=== PATIENT | male | born 1940 | race Caucasian/White ===

== ENCOUNTER → 2017-06-05 | Outpatient (CLI) | payer OTHER, MEDICARE ==
[~2017-06-05] MED LIST: AMLO5TAB2 PO; ATOR1TAB19 PO; CLOP75TA2 PO; HYDR25TAB PO; KEPP1TAB PO; METO1TAB33 PO; MULT1TAB8 PO; TEGR100T3 PO; TEGR1TAB PO; TRAV04OPD OD
[2017-06-05 18:38] LABS: ALBUMIN 3.7 GM/DL (3.2-5.2); ALBUMIN/GLOBULIN RATIO 1.23 (1.00-1.93); ALKALINE PHOSPHATASE 112 U/L (45-117); ALT/SGPT 24 U/L (12-78); ANION GAP 6 MEQ/L (8-16); AST/SGOT 22 U/L (15-37); BILIRUBIN,TOTAL 0.5 MG/DL (0.2-1.0); BLOOD UREA NITROGEN 13 MG/DL (7-18); CALCIUM LEVEL 8.7 MG/DL (8.8-10.2); CARBON DIOXIDE LEVEL 32 MEQ/L (21-32); CHLORIDE LEVEL 102 MEQ/L (98-107); CHOLESTEROL LEVEL 175 MG/DL (<200); GLOMERULAR FILTRATION RATE > 60.0 (>42); GLUCOSE, FASTING 96 MG/DL (83-110); SODIUM LEVEL 140 MEQ/L (136-145); TOTAL PROTEIN 6.7 GM/DL (6.4-8.2); TRIGLYCERIDES LEVEL 170 MG/DL (<150)
[2017-06-05 18:42] LABS: BASO % 0.8 % (0.0-1.0); EOS # 0.2 K/mm3 (0.0-0.50); EOS % 3.5 % (0.0-3.0); LARGE UNSTAINED CELL # 0.2 K/mm3 (0.0-0.4); LARGE UNSTAINED CELL % 2.9 % (0.0-4.0); LYMPH # 1.4 K/mm3 (1.5-4.5); LYMPH % 26.3 % (24.0-44.0); MEAN CORPUSCULAR HEMOGLOBIN 32.8 pg (27.0-33.0); MEAN CORPUSCULAR HGB CONC 34.6 g/dl (32.0-36.5); MEAN CORPUSCULAR VOLUME 94.8 fl (80.0-96.0); MONO # 0.5 K/mm3 (0.0-0.8); MONO % 8.8 % (0.0-5.0); NEUTROPHILS # 3.1 K/mm3 (1.8-7.7); NEUTROPHILS % 57.7 % (36.0-66.0); PLATELET COUNT, AUTOMATED 153 k/mm3 (150-450); RED CELL DISTRIBUTION WIDTH 12.4 % (11.5-14.5); WHITE BLOOD COUNT 5.4 K/mm3 (4.0-10.0)
== END ==
LOC: M WUC 09:21
PROVIDERS: ATTEND Family Medicine
DX: I10 Essential (primary) hypertension (principal)

== ENCOUNTER → 2017-06-05 | Outpatient (CLI) | payer OTHER, MEDICARE | LOC: M WUC 09:26 | PROVIDERS: ATTEND Psychiatry & Neurology Neurology | DX: G50.0 Trigeminal neuralgia (principal) ==

== ENCOUNTER → 2018-06-11 | Outpatient (CLI) | payer OTHER, MEDICARE ==
[2018-06-11 14:17] LABS: BASO # 0.1 10^3/uL (0.0-0.2); BASO % 0.9 % (0.0-1.0); EOS # 0.3 10^3/uL (0.0-0.50); EOS % 5.1 % (0.0-3.0); HEMATOCRIT 44.3 % (42.0-52.0); HEMOGLOBIN 14.2 g/dl (13.5-17.5); IMMATURE GRANULOCYTE % 0.4 % (0-3.0); LYMPH # 1.7 10^3/uL (1.5-4.5); MEAN CORPUSCULAR HEMOGLOBIN 31.6 pg (27.0-33.0); MEAN CORPUSCULAR HGB CONC 32.1 g/dl (32.0-36.5); MEAN CORPUSCULAR VOLUME 98.4 fl (80.0-96.0); MONO % 15.1 % (0.0-5.0); NEUTROPHILS # 3.6 10^3/uL (1.8-7.7); NEUTROPHILS % 53.5 % (36.0-66.0); PLATELET COUNT, AUTOMATED 171 10^3/uL (150-450); RED CELL DISTRIBUTION WIDTH 12.8 % (11.5-14.5); WHITE BLOOD COUNT 6.7 10^3/uL (4.0-10.0)
[2018-06-11 14:30] LABS: ALBUMIN 3.6 GM/DL (3.2-5.2); ALBUMIN/GLOBULIN RATIO 1.06 (1.00-1.93); ALKALINE PHOSPHATASE 116 U/L (45-117); ALT/SGPT 24 U/L (12-78); ANION GAP 7 MEQ/L (8-16); AST/SGOT 27 U/L (7-37); BILIRUBIN,DIRECT 0.1 MG/DL (0.0-0.2); BILIRUBIN,TOTAL 0.4 MG/DL (0.2-1.0); BLOOD UREA NITROGEN 13 MG/DL (7-18); CALCIUM LEVEL 8.5 MG/DL (8.8-10.2); CARBON DIOXIDE LEVEL 33 MEQ/L (21-32); CHLORIDE LEVEL 104 MEQ/L (98-107); CREATININE FOR GFR 1.01 MG/DL (0.70-1.30); GLOMERULAR FILTRATION RATE > 60.0 (>42); GLUCOSE, FASTING 96 MG/DL (70-100); POTASSIUM SERUM 4.3 MEQ/L (3.5-5.1); SODIUM LEVEL 144 MEQ/L (136-145)
== END ==
LOC: M WUC 09:31
DX: I10 Essential (primary) hypertension (principal)
CPT/HCPCS: 82248

== ENCOUNTER → 2018-12-08 | Outpatient (CLI) | payer MEDICARE, OTHER ==
[~2018-12-08] MED LIST changes: -AMLO5TAB2 PO; +AMLO5TAB6 PO
[2018-12-08 09:50] LABS: BASO # 0.1 10^3/uL (0.0-0.2); EOS # 0.2 10^3/uL (0.0-0.50); EOS % 3.8 % (0.0-3.0); HEMATOCRIT 44.4 % (42.0-52.0); HEMOGLOBIN 14.7 g/dl (13.5-17.5); LYMPH # 1.6 10^3/uL (1.5-4.5); LYMPH % 26.9 % (24.0-44.0); MEAN CORPUSCULAR HEMOGLOBIN 31.9 pg (27.0-33.0); MEAN CORPUSCULAR HGB CONC 33.1 g/dl (32.0-36.5); MEAN CORPUSCULAR VOLUME 96.3 fl (80.0-96.0); MONO # 0.7 10^3/uL (0.0-0.8); NEUTROPHILS # 3.4 10^3/uL (1.8-7.7); NEUTROPHILS % 56.8 % (36.0-66.0); PLATELET COUNT, AUTOMATED 160 10^3/uL (150-450); RED BLOOD COUNT 4.61 10^6/uL (4.30-6.10)
[2018-12-08 10:17] LABS: CARBAMAZEPINE (TEGRETOL) LEVEL 8.2 UG/ML (4.0-10.0)
== END ==
LOC: M WUC 08:27
PROVIDERS: ATTEND Physician Assistant Medical
DX: Z51.81 Encounter for therapeutic drug level monitoring (principal); Z79.899 Other long term (current) drug therapy; G50.0 Trigeminal neuralgia

== ENCOUNTER → 2019-01-13 | Outpatient (CLI) | payer MEDICARE, OTHER ==
[~2019-01-13] MED LIST changes: +HYDR-2541 PO; -HYDR25TAB PO
[2019-01-13 13:55] LABS: BLOOD UREA NITROGEN 15 MG/DL (7-18); CALCIUM LEVEL 8.9 MG/DL (8.8-10.2); CARBON DIOXIDE LEVEL 32 MEQ/L (21-32); CHLORIDE LEVEL 107 MEQ/L (98-107); CHOLESTEROL LEVEL 199 MG/DL (<200); CHOLESTEROL RISK RATIO 4.326 (<5); GLOMERULAR FILTRATION RATE > 60.0 (>42); GLUCOSE, FASTING 94 MG/DL (70-100); HDL CHOLESTEROL 46 MG/DL (>40); LDL CHOLESTEROL 124.8 MG/DL (<100); NON-HDL-C 153 MG/DL; POTASSIUM SERUM 4.7 MEQ/L (3.5-5.1); SODIUM LEVEL 145 MEQ/L (136-145); TRIGLYCERIDES LEVEL 141 MG/DL (<150)
== END ==
LOC: M WUC 08:36
PROVIDERS: ATTEND Family Medicine
DX: E78.2 Mixed hyperlipidemia (principal)

== ENCOUNTER → 2019-08-16 | Outpatient (CLI) | payer MEDICARE, OTHER ==
[2019-08-16 12:35] LABS: BASO % 0.6 % (0.0-1.0); EOS # 0.3 10^3/uL (0.0-0.5); EOS % 3.7 % (0.0-3.0); HEMATOCRIT 44.7 % (42.0-52.0); HEMOGLOBIN 14.4 g/dl (13.5-17.5); LYMPH # 2.1 10^3/uL (1.5-5.0); MEAN CORPUSCULAR HEMOGLOBIN 31.6 pg (27.0-33.0); MEAN CORPUSCULAR HGB CONC 32.2 g/dl (32.0-36.5); MEAN CORPUSCULAR VOLUME 98.2 fl (80.0-96.0); MONO # 0.9 10^3/uL (0.0-0.8); MONO % 14.1 % (0.0-5.0); NEUTROPHILS # 3.3 10^3/uL (1.5-8.5); NEUTROPHILS % 49.2 % (36.0-66.0); PLATELET COUNT, AUTOMATED 167 10^3/uL (150-450); RED BLOOD COUNT 4.55 10^6/uL (4.30-6.10); WHITE BLOOD COUNT 6.7 10^3/uL (4.0-10.0)
[2019-08-16 13:01] LABS: CARBAMAZEPINE (TEGRETOL) LEVEL 8.4 UG/ML (4.0-10.0)
== END ==
LOC: M WUC 10:05
PROVIDERS: ATTEND Physician Assistant Medical
DX: Z51.81 Encounter for therapeutic drug level monitoring (principal); G50.0 Trigeminal neuralgia

== ENCOUNTER 2019-11-11 22:57 | Emergency (ER) | payer MEDICARE, OTHER ==
[2019-11-11] MEDS ORDERED: NS 1,000 ML IV ONE (23:30)
--- NOTE | 2019-11-12 00:32 | REPVR ---
PROCEDURE INFORMATION: Exam: CT Head Without Contrast Exam date and time: 11/12/2019 12:08 AM Age: 79 years old Clinical indication: Injury or trauma; Fall; Initial encounter; Blunt trauma (contusions or hematomas); Weakness, extremity; Additional info: Generalized weakness, fall TECHNIQUE: Imaging protocol: Computed tomography of the head without contrast. Radiation optimization: All CT scans at this facility use at least one of these dose optimization techniques: automated exposure control; mA and/or kV adjustment per patient size (includes targeted exams where dose is matched to clinical indication); or iterative reconstruction. COMPARISON: CT Head without contrast 03/19/2016 1:41 PM FINDINGS: Brain: There is no acute intracranial abnormality. Moderate prominence of ventricles and sulci representing volume loss. Moderate small vessel ischemic changes are seen. There is no mass, midline shift, or mass effect. Lobo-white matter differentiation is preserved. There is no evidence of hemorrhage. There is no extra-axial fluid collection. Basal cisterns are patent. Ventricles: See Brain Finding. Bones/joints: Unremarkable. No acute fracture. Sinuses: Visualized sinuses are unremarkable. No fluid levels. Mastoid air cells: Visualized mastoid air cells are well aerated. Soft tissues: Unremarkable. IMPRESSION: 1. Moderate volume loss and small vessel ischemic changes. 2. No acute intracranial abnormality. Electronically signed by: Venecia Greenfield On 11/12/2019 00:32:43 AM
[2019-11-12 01:19] LABS: BASO # 0.1 10^3/uL (0.0-0.2); BASO % 0.4 % (0.0-1.0); EOS # 0.2 10^3/uL (0.0-0.5); EOS % 1.2 % (0.0-3.0); HEMATOCRIT 47.8 % (42.0-52.0); HEMOGLOBIN 15.6 g/dl (13.5-17.5); LYMPH # 1.3 10^3/uL (1.5-5.0); LYMPH % 10.1 % (24.0-44.0); MEAN CORPUSCULAR HEMOGLOBIN 31.8 pg (27.0-33.0); MEAN CORPUSCULAR HGB CONC 32.6 g/dl (32.0-36.5); MEAN CORPUSCULAR VOLUME 97.6 fl (80.0-96.0); MONO % 7.7 % (0.0-5.0); NEUTROPHILS # 10.5 10^3/uL (1.5-8.5); NEUTROPHILS % 80.3 % (36.0-66.0); PLATELET COUNT, AUTOMATED 162 10^3/uL (150-450)
[2019-11-12 01:29] LABS: INR 0.99; PROTHROMBIN TIME 12.8 SECONDS (11.8-14.0)
[2019-11-12 01:30] LABS: PARTIAL THROMBOPLASTIN TIME 25.8 SECONDS (25.0-38.4)
[2019-11-12 01:57] LABS: ALBUMIN 3.7 GM/DL (3.2-5.2); ALT/SGPT 29 U/L (12-78); BILIRUBIN,DIRECT 0.1 MG/DL (0.0-0.2); BILIRUBIN,TOTAL 0.3 MG/DL (0.2-1.0); BLOOD UREA NITROGEN 16 MG/DL (7-18); CARBON DIOXIDE LEVEL 32 MEQ/L (21-32); CHLORIDE LEVEL 104 MEQ/L (98-107); CK-MB VALUE MASS 1.4 NG/ML (<3.6); CPK CREATINE PHOSPHOKINASE 103 U/L (39-308); CREATININE FOR GFR 1.19 MG/DL (0.70-1.30); GLOMERULAR FILTRATION RATE > 60.0 (>42); GLUCOSE, FASTING 109 MG/DL (70-100); LIPASE 152 U/L (73-393); MB/CK RELATIVE INDEX 1.36 (< OR =4); POTASSIUM SERUM 4.2 MEQ/L (3.5-5.1); SODIUM LEVEL 140 MEQ/L (136-145); TROPONIN I < 0.02 NG/ML (< 0.10)
[2019-11-12 03:25] VITALS: BP 166/73
[2019-11-12 03:33] VITALS: O2SAT 97
--- NOTE | 2019-11-12 08:34 | REP ---
Portable chest, 11:47 p.m., single AP view with the patient sitting: Comparison is 06/11/2015. The lung renee are clear. The cardiac size is normal. The liliam, mediastinum, and skeletal structures are unremarkable. The the patient is rotated. Impression: Negative portable chest. There is no interval change. Electronically Signed by Luis Marie MD 11/12/2019 08:26 A
--- NOTE | 2019-11-12 20:55 | ECGEPIP ---
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
== END 2019-11-12 03:57 | disposition home or self-care (01) ==
LOC: EDSEX 22:57 → EDBD 22:57 → M ED 22:57
DX: R53.1 Weakness (principal); I10 Essential (primary) hypertension; R56.9 Unspecified convulsions; Z86.73 Personal history of transient ischemic attack (TIA), and cerebral infarction without residual deficits; Z79.899 Other long term (current) drug therapy

== ENCOUNTER → 2020-02-16 | Outpatient (CLI) | payer MEDICARE, OTHER ==
[2020-02-16 10:01] LABS: CHOLESTEROL RISK RATIO 4.512 (<5)
== END ==
LOC: M WUC 08:18
PROVIDERS: ATTEND Nurse Practitioner Family
DX: E78.2 Mixed hyperlipidemia (principal)

== ENCOUNTER 2020-05-18 11:20 | Inpatient (IN) | payer MEDICARE, OTHER ==
[~2020-05-18] VITALS: Ht 177.8 cm; Wt 82.0 kg
[~2020-05-18 11:20] MED LIST changes: +AMLO1TAB24 PO; -AMLO5TAB6 PO; -TRAV04OPD OD; +TRAV04OPD OU
[2020-05-18 12:17] LABS: BASO # 0.1 10^3/uL (0.0-0.2); BASO % 0.8 % (0.0-1.0); EOS # 0.3 10^3/uL (0.0-0.5); EOS % 3.7 % (0.0-3.0); HEMATOCRIT 46.8 % (42.0-52.0); HEMOGLOBIN 15.4 g/dl (13.5-17.5); LYMPH # 2.1 10^3/uL (1.5-5.0); MEAN CORPUSCULAR HEMOGLOBIN 31.4 pg (27.0-33.0); MEAN CORPUSCULAR HGB CONC 32.9 g/dl (32.0-36.5); MEAN CORPUSCULAR VOLUME 95.5 fl (80.0-96.0); MONO # 0.9 10^3/uL (0.0-0.8); MONO % 11.4 % (0.0-5.0); NEUTROPHILS # 4.4 10^3/uL (1.5-8.5); NEUTROPHILS % 56.8 % (36.0-66.0); PLATELET COUNT, AUTOMATED 173 10^3/uL (150-450); WHITE BLOOD COUNT 7.8 10^3/uL (4.0-10.0)
[2020-05-18] MEDS ORDERED: METO1TAB33 PO (12:21)
[2020-05-18] MEDS ORDERED: CARB100T PO (12:21)
[2020-05-18] MEDS ORDERED: HYDR25TAB PO (12:21)
[2020-05-18] MEDS ORDERED: GABA-845 PO (12:22)
[2020-05-18] MEDS ORDERED: ASPI81TA86 PO (12:23)
[2020-05-18] MEDS ORDERED: CETI5TAB2 PO (12:23)
[2020-05-18 12:30] LABS: INR 0.97; PROTHROMBIN TIME 13.1 SECONDS (11.8-14.0)
--- NOTE | 2020-05-18 12:58 | HPEPDOC ---
[facility] Medical History & Physical Date of Admission May 18, 2020 Date of Service: May 18, 2020 Attending Physician: Sarah Aguirre MD History and Physical CHIEF COMPLAINT: weakness HISTORY OF PRESENT ILLNESS: Patient is an 80 y/o M with PMH of CVA x2, multiple TIA, hx of trigeminal neuralgia, HLD, HTN, glaucoma who presented to [facility] ER after being sent in by neurology for 2 new CVAs identified on MRA, increased weakness. Per patient and at bedside, they had seen neurology associates saw 05/07/20 and explained to them that the patient was having more balance issues, problems with left leg or basically anything or any movement that involved lifting his left leg. He has had multiple falls (3 over the past 3 months), recent ER visit for lower ext weakness. He has had a stroke in the past which left him with residual deficits but this was something worsening over 3 months and newer. On his last ER visit, he was not found to need outpatient physical therapy and discharged home. Today Dr. Blankenship (neurology) called the patient to let them know the recent MRI of brain showed two new areas of ischemia in the cerebellum, explaining his gait changes. The patient was then brought in by his for further evaluation. In the ER, patient denied denies shortness of breath, n/v, recent illness, chest pain, vision changes that are new, dizziness, numbness or tingling. BP showed systolic 170 mmHg. He is compliant with all home antihypertensive medications. He denies eating a high salt diet. Per request of neurology, patient was admitted for further optimization of BP, evaluation of weakness by PT/OT. PAST MEDICAL HISTORY: 1. Hx of several TIAs 2. CVA x 2 3. Hx of trigeminal neuralgia (stable for 2 years) 4. HLD 5. HTN 6. Glaucoma PAST SURGICAL HISTORY: 1. 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 Quit 22 years ago. No alcohol use, no drug use. Full code. HCP, and daughter. Uses walker at home. PCP- Dr. Chloe Briseno, neurology- Dr. Blankenship, Speed [employer] Sander Tender- Dr. Zeng FAMILY HISTORY: Father: no medical issues, in 30's or 40's Mother: DM type II, CVA. in late 70's. ALLERGIES: Please see below. HOME MEDICATIONS: Please see below. PHYSICAL EXAMINATION: VITAL SIGNS: Please see below GENERAL APPEARANCE: NAD, resting in bed. HEENT: Right eye deviation-chronic eye issue and cannot perform EOM testing with this eye. Left eye EOM intact, PERRLA, CARDIOVASCULAR: S1S2, no M/R/G LUNGS: CTAB, no W/R/R ABDOMEN: soft, nontender, nondistended, BS + 4 quadrants MUSCULOSKELETAL: No atrophy EXTREMITIES: No cyanosis, edema. Pulses + in all extremities. ROM not tested. NEUROLOGICAL: Right eye deviation, left lower ext strength 3-4/5. LUE, RLE, RUE all 5/5 strength. Decreased reflexes of left knee, normal in all other ext. Gait not tested due to fall risk. Sensory decreased left lower ext-chronic. Sensory and motor intact in all other ext. PSYCHIATRIC: Mood and affect appropriate. LABORATORY DATA: See below. IMAGING: MRI brain: 2 new cerebellar infarcts, official reading pending ASSESSMENT: 80 y/o M with PMH of TIA, CVA, uncontrolled HTN was admitted further treatment of cerebellar CVA, weakness and unsteady gait. PLAN: 1. Cerebellar CVA, new on MRI. Possibly 2/2 to uncontrolled BP, hx of prior TIA/CVAs. + worsening gait over 3 months, unsteadiness, no other new focal deficits but has residual deficits from prior CVA. C/w plavix, ASA, statin, optimize BP as described below, PT/OT. 2. Uncontrolled BP. Systolic BP 170 mmHg. Increased home amlodipine to 10 mg PO daily, c/w other home medications. Tele. 3. HLD. recent lipid panel 01/2020. C/w statin at current dose. 4. Hx of trigeminal neuralgia. C/w home medications. 5. Glaucoma. C/w eye drops. 6. DVT px. ASA, Plavix, SCDs, teds. DISPOSITION: Admit to inpatient unit. Neurology is aware of patient's admission, Dr. Blankenship. PT/OT ordered. Vital Signs Vital Signs Date Time Temp Pulse Resp B/P (MAP) Pulse Ox O2 Delivery O2 Flow Rate FiO2 05/18/20 12:30 57 17 147/51 (83) 95 Room Air 05/18/20 11:21 96.5 Laboratory Data Labs 24H Laboratory Tests 2 05/18/20 11:55: Immature Granulocyte % (Auto) 0.3, Neutrophils (%) (Auto) 56.8, Lymphocytes (%) (Auto) 27.0, Monocytes (%) (Auto) 11.4H, Eosinophils (%) (Auto) 3.7H, Basophils (%) (Auto) 0.8, Neutrophils # (Auto) 4.4, Lymphocytes # (Auto) 2.1, Monocytes # (Auto) 0.9H, Eosinophils # (Auto) 0.3, Basophils # (Auto) 0.1, Nucleated Red Blood Cells % (auto) 0.0, Prothrombin Time 13.1, Prothromb Time International Ratio 0.97 CBC/BMP Laboratory Tests 05/18/20 11:55 Home Medications Scheduled Amlodipine Besylate (Amlodipine Besylate) 5 Mg Tab, 5 MG PO DAILY Aspirin (Aspir 81) 81 Mg Tablet.dr, 81 MG PO DAILY Atorvastatin Calcium (Atorvastatin Calcium) 10 Mg Tab, 10 MG PO DAILY Carbamazepine (Carbamazepine ER) 100 Mg Tab.er.12h, 200 MG PO BID Cetirizine HCl (Cetirizine HCl) 5 Mg Tablet, 5 MG PO DAILY GIVEN AROUND 1600 Clopidogrel Bisulfate (Clopidogrel) 75 Mg Tab, 75 MG PO DAILY Gabapentin (Gabapentin) 400 Mg Capsule, 400 MG PO BID Hydrochlorothiazide (Hydrochlorothiazide) 25 Mg Tablet, 25 MG PO DAILY Metoprolol Succinate (Metoprolol Succinate) 100 Mg Tab.er.24h, 100 MG PO DAILY Multivitamin (Multi-Vitamin Daily) 1 Tab Tab, 1 TAB PO DAILY Travoprost (Travatan Z) 50 Drop/2.5 Ml Soln, 1 DROP OU QHS Allergies Coded Allergies: No Known Allergies (Unverified , 06/12/15) A-FIB/CHADSVASC A-FIB History Current/History of A-Fib/PAF?: No Current PO Anticoag Therapy: No Age/Risk Factor Scoring CHADSVASC: CHADSVASC Response (Comments) Value Age Risk Factor Age >/= 75 years old 2 Gender Risk Factor Male 0 Hx of CHF No 0 Hx of HTN Yes 1 Hx of Stroke/TIA/or VTE Yes 2 Hx of Diabetes No 0 Hx of Vascular Disease No 0 Total 5 Treatment Treatment ordered: NONE Other anticoagulant ordered: teds, scd Current Medications Current Medications Medications (Trade) Dose Ordered Sig/Marco A Route PRN Reason Start Time Stop Time Status Last Admin Dose Admin Home Med (Med Rec Complete!) ASDIRECTED XX 05/18/20 12:30 05/18/20 12:26 Sarah Ag MD May 18, 2020 12:58
[2020-05-18 13:01] LABS: ALBUMIN 3.7 GM/DL (3.2-5.2); ALT/SGPT 23 U/L (12-78); BILIRUBIN,TOTAL 0.5 MG/DL (0.2-1.0); BLOOD UREA NITROGEN 13 MG/DL (7-18); CALCIUM LEVEL 8.9 MG/DL (8.8-10.2); CARBON DIOXIDE LEVEL 32 MEQ/L (21-32); CHLORIDE LEVEL 102 MEQ/L (98-107); CREATININE FOR GFR 1.17 MG/DL (0.70-1.30); GLOMERULAR FILTRATION RATE > 60.0 (>35); GLUCOSE, FASTING 107 MG/DL (70-100); POTASSIUM SERUM 3.8 MEQ/L (3.5-5.1); SODIUM LEVEL 139 MEQ/L (136-145); TOTAL PROTEIN 7.1 GM/DL (6.4-8.2)
[2020-05-18 13:27] LABS: CARBAMAZEPINE (TEGRETOL) LEVEL 8.5 UG/ML (4.0-10.0)
[2020-05-18 15:08] VITALS: BP 172/82
[2020-05-18] MEDS: CETIRIZINE (ZyrTEC) 10 MG TAB PO SCH (17:20)
[2020-05-18 20:11] VITALS: BP 162/62
[2020-05-18] MEDS: carBAMazepine XR 200 MG TAB PO SCH (20:16)
[2020-05-18] MEDS: LATANOPROST 0.005% OPHTH SOLN 2.5 ML OU SCH (20:16)
[2020-05-18] MEDS: GABAPENTIN 400 MG CAP PO SCH (20:16)
[2020-05-19] VITALS: BP 158/62
[2020-05-19 04:11] VITALS: BP 152/62
[2020-05-19 07:23] LABS: HEMATOCRIT 44.2 % (42.0-52.0); HEMOGLOBIN 14.7 g/dl (13.5-17.5); MEAN CORPUSCULAR HEMOGLOBIN 31.7 pg (27.0-33.0); MEAN CORPUSCULAR HGB CONC 33.3 g/dl (32.0-36.5); MEAN CORPUSCULAR VOLUME 95.5 fl (80.0-96.0); PLATELET COUNT, AUTOMATED 154 10^3/uL (150-450); RED BLOOD COUNT 4.63 10^6/uL (4.30-6.10)
[2020-05-19 07:51] LABS: ALBUMIN 3.3 GM/DL (3.2-5.2); ALT/SGPT 22 U/L (12-78); BILIRUBIN,TOTAL 0.5 MG/DL (0.2-1.0); BLOOD UREA NITROGEN 12 MG/DL (7-18); CALCIUM LEVEL 8.7 MG/DL (8.8-10.2); CARBON DIOXIDE LEVEL 30 MEQ/L (21-32); CHLORIDE LEVEL 105 MEQ/L (98-107); GLOMERULAR FILTRATION RATE > 60.0 (>35); GLUCOSE, FASTING 86 MG/DL (70-100); POTASSIUM SERUM 3.8 MEQ/L (3.5-5.1); SODIUM LEVEL 142 MEQ/L (136-145); TOTAL PROTEIN 6.1 GM/DL (6.4-8.2)
[2020-05-19] MEDS: carBAMazepine XR 200 MG TAB PO SCH ×2 (10:12→21:17)
[2020-05-19] MEDS: CLOPIDOGREL 75 MG TAB PO SCH (10:13)
[2020-05-19] MEDS: hydroCHLOROthiazide 25 MG TAB PO SCH (10:13)
[2020-05-19] MEDS: amLODIPine 10 MG TAB PO SCH (10:16)
[2020-05-19] MEDS: ASPIRIN 81 MG ENTERIC TAB PO SCH (10:16)
[2020-05-19] MEDS: ATORVASTATIN 10 MG TAB PO SCH (10:17)
[2020-05-19] MEDS: MULTIVITAMINS/MINERALS THERAP 1 TAB PO SCH (10:18)
[2020-05-19] MEDS: METOPROLOL SUCC (TopROL XL) 100MG *XL* TAB PO SCH (10:18)
[2020-05-19] MEDS: GABAPENTIN 400 MG CAP PO SCH ×2 (10:19→21:17)
[2020-05-19 14:00] VITALS: BP 138/63
[2020-05-19] MEDS: CETIRIZINE (ZyrTEC) 10 MG TAB PO SCH (16:26)
--- NOTE | 2020-05-19 17:32 | IPNPDOC ---
Date Seen The patient was seen on 05/19/20. Progress Note SUBJECTIVE: BP better controlled today with increasing amlodipine to 10 mg. PT/OT: anticipate patient may be safe for home from a functional mobility standpoint in 1-3 more therapy sessions. Denies chest pain, n/v/d, fevers, chills. OBJECTIVE: PHYSICAL EXAMINATION: VITAL SIGNS: Please see below GENERAL APPEARANCE: NAD, resting in bed. HEENT: Right eye deviation-chronic eye issue and cannot perform EOM testing with this eye. Left eye EOM intact, PERRLA, CARDIOVASCULAR: S1S2, no M/R/G LUNGS: CTAB, no W/R/R ABDOMEN: soft, nontender, nondistended, BS + 4 quadrants MUSCULOSKELETAL: No atrophy EXTREMITIES: No cyanosis, edema. Pulses + in all extremities. ROM not tested. NEUROLOGICAL: Right eye deviation, left lower ext strength 3-4/5. LUE, RLE, RUE all 5/5 strength. Decreased reflexes of left knee, normal in all other ext. Gait not tested due to fall risk. Sensory decreased left lower ext-chronic. Sensory and motor intact in all other ext. PSYCHIATRIC: Mood and affect appropriate. LABORATORY DATA: See below. IMAGING: MRI brain: 2 new cerebellar infarcts, official reading pending ASSESSMENT: 80 y/o M with PMH of TIA, CVA, uncontrolled HTN was admitted further treatment of cerebellar CVA, weakness and unsteady gait. PLAN: 1. Cerebellar CVA, new on MRI. Possibly 2/2 to uncontrolled BP. Hx of prior TIA/CVAs. BP improved with increased amlodipine. PT/OT: anticipate patient may be safe for home from a functional mobility standpoint in 1-3 more therapy sessions. C/w plavix, ASA, statin, optimize BP as described below, PT/OT. 2. Uncontrolled BP. Systolic BP 130-140 mmHg. C/w amlodipine to 10 mg PO daily, other home medications. Tele. 3. HLD. recent lipid panel 01/2020. C/w statin at current dose. 4. Hx of trigeminal neuralgia. C/w home medications. 5. Glaucoma. C/w eye drops. 6. DVT px. ASA, Plavix, SCDs, teds. DISPOSITION: PT/OT, discharge home when medically improved. VS, I&O, 24H, Fishbone Vital Signs/I&O Vital Signs Date Time Temp Pulse Resp B/P (MAP) Pulse Ox O2 Delivery O2 Flow Rate FiO2 05/19/20 14:00 98.1 62 16 138/63 (88) 95 Room Air I&O- Last 24 Hours up to 6 AM 05/19/20 06:00 Intake Total 870 ml Output Total 300 ml Balance 570 ml Laboratory Data 24H LABS Laboratory Tests 2 05/19/20 06:46: Nucleated Red Blood Cells % (auto) 0.0, Anion Gap 7L, Glomerular Filtration Rate > 60.0, Calcium Level 8.7L, Total Bilirubin 0.5, Aspartate Amino Transf (AST/SGOT) 24, Alanine Aminotransferase (ALT/SGPT) 22, Alkaline Phosphatase 118H, Total Protein 6.1L, Albumin 3.3, Albumin/Globulin Ratio 1.2 CBC/BMP Laboratory Tests 05/19/20 06:46 Current Medications Current Medications Medications (Trade) Dose Ordered Sig/Marco A Route PRN Reason Start Time Stop Time Status Last Admin Dose Admin Amlodipine Besylate (Norvasc) 10 mg DAILY PO 05/19/20 09:00 05/19/20 10:16 Aspirin (Ecotrin) 81 mg DAILY PO 05/19/20 09:00 05/19/20 10:16 Atorvastatin Calcium (Lipitor) 10 mg DAILY PO 05/19/20 09:00 05/19/20 10:17 Carbamazepine (TEGretol XR) 200 mg BID PO 05/18/20 21:00 05/19/20 10:12 Cetirizine HCl (ZyrTEC) 5 mg DAILY@1600 PO 05/18/20 16:00 05/19/20 16:26 Clopidogrel Bisulfate (PLAVix) 75 mg DAILY PO 05/19/20 09:00 05/19/20 10:13 Gabapentin (Neurontin) 400 mg BID PO 05/18/20 21:00 05/19/20 10:19 Home Med (Med Rec Complete!) ASDIRECTED XX 05/18/20 12:30 05/18/20 12:26 DC Hydrochlorothiazide (Hydrodiuril) 25 mg DAILY PO 05/19/20 09:00 05/19/20 10:13 Latanoprost (Xalatan 0.005% Op Soln) 1 drop QHS OU 05/18/20 21:00 05/18/20 20:16 Metoprolol Succinate (TopROL XL) 100 mg DAILY PO 05/19/20 09:00 05/19/20 10:18 Multivitamins (Theragram-M) 1 tab DAILY PO 05/19/20 09:00 05/19/20 10:18 Allergies Coded Allergies: No Known Allergies (Unverified , 06/12/15) Sarah Aguirre MD May 19, 2020 17:32
[2020-05-19] MEDS: LATANOPROST 0.005% OPHTH SOLN 2.5 ML OU SCH (21:17)
[2020-05-19 22:00] VITALS: BP 138/64
[2020-05-20 06:00] VITALS: BP 151/67
[2020-05-20 06:30] LABS: HEMATOCRIT 43.2 % (42.0-52.0); HEMOGLOBIN 14.2 g/dl (13.5-17.5); MEAN CORPUSCULAR HEMOGLOBIN 31.3 pg (27.0-33.0); MEAN CORPUSCULAR HGB CONC 32.9 g/dl (32.0-36.5); MEAN CORPUSCULAR VOLUME 95.2 fl (80.0-96.0); PLATELET COUNT, AUTOMATED 151 10^3/uL (150-450); RED BLOOD COUNT 4.54 10^6/uL (4.30-6.10); WHITE BLOOD COUNT 8.4 10^3/uL (4.0-10.0)
[2020-05-20 06:53] LABS: ALBUMIN 3.2 GM/DL (3.2-5.2); ALT/SGPT 20 U/L (12-78); BILIRUBIN,TOTAL 0.5 MG/DL (0.2-1.0); BLOOD UREA NITROGEN 13 MG/DL (7-18); CALCIUM LEVEL 8.5 MG/DL (8.8-10.2); CARBON DIOXIDE LEVEL 30 MEQ/L (21-32); CHLORIDE LEVEL 105 MEQ/L (98-107); CREATININE FOR GFR 1.08 MG/DL (0.70-1.30); GLOMERULAR FILTRATION RATE > 60.0 (>35); GLUCOSE, FASTING 94 MG/DL (70-100); POTASSIUM SERUM 3.9 MEQ/L (3.5-5.1); SODIUM LEVEL 140 MEQ/L (136-145); TOTAL PROTEIN 6.1 GM/DL (6.4-8.2)
[2020-05-20] MEDS: GABAPENTIN 400 MG CAP PO SCH ×2 (09:36→21:24)
[2020-05-20] MEDS: hydroCHLOROthiazide 25 MG TAB PO SCH (09:36)
[2020-05-20] MEDS: ATORVASTATIN 10 MG TAB PO SCH (09:36)
[2020-05-20] MEDS: CLOPIDOGREL 75 MG TAB PO SCH (09:36)
[2020-05-20] MEDS: carBAMazepine XR 200 MG TAB PO SCH ×2 (09:36→21:24)
[2020-05-20] MEDS: ASPIRIN 81 MG ENTERIC TAB PO SCH (09:36)
[2020-05-20] MEDS: amLODIPine 10 MG TAB PO SCH (09:37)
[2020-05-20] MEDS: METOPROLOL SUCC (TopROL XL) 100MG *XL* TAB PO SCH (09:37)
[2020-05-20] MEDS: MULTIVITAMINS/MINERALS THERAP 1 TAB PO SCH (09:38)
[2020-05-20 14:00] VITALS: BP 140/60
--- NOTE | 2020-05-20 15:21 | IPNPDOC ---
Date Seen The patient was seen on 05/20/20. Progress Note SUBJECTIVE: BP better controlled. PT/OT: recommending continued rehab, unsafe for discharge currently. Denies chest pain, n/v/d, fevers, chills. OBJECTIVE: PHYSICAL EXAMINATION: VITAL SIGNS: Please see below GENERAL APPEARANCE: NAD, resting in bed. HEENT: Right eye deviation-chronic eye issue and cannot perform EOM testing with this eye. Left eye EOM intact, PERRLA, CARDIOVASCULAR: S1S2, no M/R/G LUNGS: CTAB, no W/R/R ABDOMEN: soft, nontender, nondistended, BS + 4 quadrants MUSCULOSKELETAL: No atrophy EXTREMITIES: No cyanosis, edema. Pulses + in all extremities. ROM not tested. NEUROLOGICAL: Right eye deviation, left lower ext strength 3-4/5. LUE, RLE, RUE all 5/5 strength. Decreased reflexes of left knee, normal in all other ext. Gait not tested due to fall risk. Sensory decreased left lower ext-chronic. Sensory and motor intact in all other ext. PSYCHIATRIC: Mood and affect appropriate. LABORATORY DATA: See below. IMAGING: MRI brain: 2 new cerebellar infarcts- done o/p ASSESSMENT: 80 y/o M with PMH of TIA, CVA, uncontrolled HTN was admitted further treatment of cerebellar CVA, weakness and unsteady gait. PLAN: 1. Cerebellar CVA, new on MRI. Possibly 2/2 to uncontrolled BP. Hx of prior TIA/CVAs. BP better controlled, no new focal deficits. PT/OT: recommending rehab but unsafe currently for discharge. C/w plavix, ASA, statin, optimize BP as described below, PT/OT. 2. HTN. Better controlled. C/w amlodipine 10 mg PO daily, HCTZ, metoprolol succinate. 3. HLD. recent lipid panel 01/2020. C/w statin at current dose. 4. Hx of trigeminal neuralgia. C/w home medications. 5. Glaucoma. C/w eye drops. 6. DVT px. ASA, Plavix, SCDs, teds. DISPOSITION: PT/OT, discharge home when medically improved. VS, I&O, 24H, Fishbone Vital Signs/I&O Vital Signs Date Time Temp Pulse Resp B/P (MAP) Pulse Ox O2 Delivery O2 Flow Rate FiO2 05/20/20 14:00 98.2 63 18 140/60 (86) 95 Room Air I&O- Last 24 Hours up to 6 AM 05/20/20 06:00 Intake Total 650 ml Output Total 350 ml Balance 300 ml Laboratory Data 24H LABS Laboratory Tests 2 05/20/20 06:00: Nucleated Red Blood Cells % (auto) 0.0, Anion Gap 5L, Glomerular Filtration Rate > 60.0, Calcium Level 8.5L, Total Bilirubin 0.5, Aspartate Amino Transf (AST/S GOT) 25, Alanine Aminotransferase (ALT/SGPT) 20, Alkaline Phosphatase 113, Total Protein 6.1L, Albumin 3.2, Albumin/Globulin Ratio 1.1 CBC/BMP Laboratory Tests 05/20/20 06:00 Current Medications Current Medications Medications (Trade) Dose Ordered Sig/Marco A Route PRN Reason Start Time Stop Time Status Last Admin Dose Admin Amlodipine Besylate (Norvasc) 10 mg DAILY PO 05/19/20 09:00 05/20/20 09:37 Aspirin (Ecotrin) 81 mg DAILY PO 05/19/20 09:00 05/20/20 09:36 Atorvastatin Calcium (Lipitor) 10 mg DAILY PO 05/19/20 09:00 05/20/20 09:36 Carbamazepine (TEGretol XR) 200 mg BID PO 05/18/20 21:00 05/20/20 09:36 Cetirizine HCl (ZyrTEC) 5 mg DAILY@1600 PO 05/18/20 16:00 05/19/20 16:26 Clopidogrel Bisulfate (PLAVix) 75 mg DAILY PO 05/19/20 09:00 05/20/20 09:36 Gabapentin (Neurontin) 400 mg BID PO 05/18/20 21:00 05/20/20 09:36 Home Med (Med Rec Complete!) ASDIRECTED XX 05/18/20 12:30 05/18/20 12:26 DC Hydrochlorothiazide (Hydrodiuril) 25 mg DAILY PO 05/19/20 09:00 05/20/20 09:36 Latanoprost (Xalatan 0.005% Op Soln) 1 drop QHS OU 05/18/20 21:00 05/19/20 21:17 Metoprolol Succinate (TopROL XL) 100 mg DAILY PO 05/19/20 09:00 05/20/20 09:37 Multivitamins (Theragram-M) 1 tab DAILY PO 05/19/20 09:00 05/20/20 09:38 Allergies Coded Allergies: No Known Allergies (Unverified , 06/12/15) Sarah Aguirre MD May 20, 2020 15:21
[2020-05-20] MEDS: CETIRIZINE (ZyrTEC) 10 MG TAB PO SCH (16:15)
[2020-05-20] MEDS: LATANOPROST 0.005% OPHTH SOLN 2.5 ML OU SCH (21:24)
[2020-05-20 22:00] VITALS: BP 135/64
[2020-05-21 06:00] VITALS: BP 137/63
[2020-05-21 06:28] LABS: HEMOGLOBIN 14.6 g/dl (13.5-17.5); MEAN CORPUSCULAR HEMOGLOBIN 31.5 pg (27.0-33.0); MEAN CORPUSCULAR HGB CONC 33.2 g/dl (32.0-36.5); MEAN CORPUSCULAR VOLUME 94.8 fl (80.0-96.0); PLATELET COUNT, AUTOMATED 142 10^3/uL (150-450); RED BLOOD COUNT 4.64 10^6/uL (4.30-6.10); WHITE BLOOD COUNT 7.9 10^3/uL (4.0-10.0)
[2020-05-21 06:47] LABS: ALBUMIN 3.2 GM/DL (3.2-5.2); ALT/SGPT 22 U/L (12-78); BILIRUBIN,TOTAL 0.5 MG/DL (0.2-1.0); BLOOD UREA NITROGEN 13 MG/DL (7-18); CALCIUM LEVEL 8.9 MG/DL (8.8-10.2); CARBON DIOXIDE LEVEL 29 MEQ/L (21-32); CHLORIDE LEVEL 103 MEQ/L (98-107); CREATININE FOR GFR 0.98 MG/DL (0.70-1.30); GLOMERULAR FILTRATION RATE > 60.0 (>35); GLUCOSE, FASTING 95 MG/DL (70-100); POTASSIUM SERUM 3.7 MEQ/L (3.5-5.1); SODIUM LEVEL 139 MEQ/L (136-145)
[2020-05-21] MEDS: GABAPENTIN 400 MG CAP PO SCH (08:07)
[2020-05-21] MEDS: MULTIVITAMINS/MINERALS THERAP 1 TAB PO SCH (08:07)
[2020-05-21] MEDS: ASPIRIN 81 MG ENTERIC TAB PO SCH (08:07)
[2020-05-21] MEDS: carBAMazepine XR 200 MG TAB PO SCH (08:07)
[2020-05-21] MEDS: CLOPIDOGREL 75 MG TAB PO SCH (08:07)
[2020-05-21 08:08] VITALS: BP 126/66
[2020-05-21] MEDS: hydroCHLOROthiazide 25 MG TAB PO SCH (08:08)
[2020-05-21] MEDS: ATORVASTATIN 10 MG TAB PO SCH (08:08)
[2020-05-21] MEDS: amLODIPine 10 MG TAB PO SCH (08:08)
[2020-05-21] MEDS: METOPROLOL SUCC (TopROL XL) 100MG *XL* TAB PO SCH (08:08)
[2020-05-21 14:00] VITALS: BP 147/69
[2020-05-21] MEDS: CETIRIZINE (ZyrTEC) 10 MG TAB PO SCH (16:22)
--- NOTE | 2020-05-21 16:44 | DS.PDOC ---
Discharge Summary General Date of Admission May 18, 2020 at 12:46 Date of Discharge 05/21/2020 Attending Physician: MAU ANGEL MD Discharge Summary PROCEDURES PERFORMED DURING STAY: None ADMITTING DIAGNOSES: 1. Cerebellar CVA DISCHARGE DIAGNOSES: 1. Cerebellar CVA 2. History of TIAs and prior CVA x 2 3. Hx of trigeminal neuralgia 4. HLD 5. HTN 6. Glaucoma COMPLICATIONS/CHIEF COMPLAINT: Cva Weakness. HISTORY OF PRESENT ILLNESS: 80 y/o M with PMH of CVA x2, multiple TIA, hx of trigeminal neuralgia, HLD, HTN, glaucoma who presented to [facility] ER after being sent in by neurology for 2 new CVAs identified on MRA during outpatient imaging for increased weakness. Per patient and , they had seen neurology associates saw 05/07/20 and explained to them that the patient was having more balance issues, problems with left leg or basically anything or any movement that involved lifting his left leg. He has had multiple falls (3 over the past 3 months), recent ER visit for lower ext weakness. He has had a stroke in the past which left him with residual deficits but this was something worsening over 3 months and newer. On his last ER visit, he was not found to need outpatient physical therapy and discharged home. On the day of presentation, Dr. Blankenship (neurology) called the patient to let them know the recent MRI of brain showed two new areas of ischemia in the cerebellum, explaining his gait changes. The patient was then brought in by his for further evaluation. HOSPITAL COURSE: In the ER, patient denied denies shortness of breath, n/v, recent illness, chest pain, vision changes that are new, dizziness, numbness or tingling. BP showed systolic 170 mmHg. He reports 100% compliance with all home antihypertensive medications nad his DAPT. Per request of neurology, patient was admitted for further optimization of BP, evaluation of weakness by PT/OT. His BP was well controlled during this admission and initially there was discussion of screening for ARU admission to which patient and his were apprehensive and he eventually passed PT/OT for safe discharge to home with home PT. He is now being discharged home with PT. DISCHARGE MEDICATIONS: Please see below. ALLERGIES: Please see below. PHYSICAL EXAMINATION ON DISCHARGE: VITAL SIGNS: Please see below. PHYSICAL EXAMINATION: VITAL SIGNS: Please see below GENERAL APPEARANCE: NAD, resting in bed. HEENT: Right eye deviation-chronic issue. Left eye EOM intact, PERRLA CARDIOVASCULAR: RRR, no M/R/G LUNGS: CTAB ABDOMEN: soft, nontender, nondistended EXTREMITIES: No cyanosis, edema. Pulses + in all extremities. NEUROLOGICAL: Left lower ext strength 3-4/5 per baseline. LUE, RLE, RUE all 5/5 strength. Decreased reflexes of left knee, normal in all other ext. Sensory decreased left lower ext-chronic. Sensory and motor intact in all other ext. PSYCHIATRIC: Mood and affect appropriate. LABORATORY DATA: See below. IMAGING: MRI brain: 2 new cerebellar infarcts, official reading pending PROGNOSIS: Fair. History of multiple CVAs despite DAPT therapy ACTIVITY: As tolerated DIET: 2g sodium DISCHARGE PLAN: Home with home PT DISPOSITION: Home DISCHARGE INSTRUCTIONS: Home with home PT ITEMS TO FOLLOWUP ON ON OUTPATIENT: 1. recent CVA f/u with PCP and neurology DISCHARGE CONDITION: Stable TIME SPENT ON DISCHARGE: 43 minutes. Vital Signs/I&Os Vital Signs Date Time Temp Pulse Resp B/P (MAP) Pulse Ox O2 Delivery O2 Flow Rate FiO2 05/21/20 14:00 98.4 70 18 147/69 (95) 94 Room Air I&O- Last 24 Hours up to 6 AM 05/21/20 06:00 Intake Total 1150 ml Output Total 750 ml Balance 400 ml Laboratory Data Labs 24H Laboratory Tests 2 05/21/20 06:04: Nucleated Red Blood Cells % (auto) 0.0, Anion Gap 7L, Glomerular Filtration Rate > 60.0, Calcium Level 8.9, Total Bilirubin 0.5, Aspartate Amino Transf (AST/SGOT) 28, Alanine Aminotransferase (ALT/SGPT) 22, Alkaline Phosphatase 114, Total Protein 6.0L, Albumin 3.2, Albumin/Globulin Ratio 1.1 CBC/BMP Laboratory Tests 05/21/20 06:04 Discharge Medications Scheduled Amlodipine Besylate (Amlodipine Besylate) 5 Mg Tab, 5 MG PO DAILY, (Reported) Aspirin (Aspir 81) 81 Mg Tablet.dr, 81 MG PO DAILY, (Reported) Atorvastatin Calcium (Atorvastatin Calcium) 10 Mg Tab, 10 MG PO DAILY, (Reported) Carbamazepine (Carbamazepine ER) 100 Mg Tab.er.12h, 200 MG PO BID, (Reported) Cetirizine HCl (Cetirizine HCl) 5 Mg Tablet, 5 MG PO DAILY, (Reported) GIVEN AROUND 1600 Clopidogrel Bisulfate (Clopidogrel) 75 Mg Tab, 75 MG PO DAILY, (Reported) Gabapentin (Gabapentin) 400 Mg Capsule, 400 MG PO BID, (Reported) Hydrochlorothiazide (Hydrochlorothiazide) 25 Mg Tablet, 25 MG PO DAILY, (Rep orted) Metoprolol Succinate (Metoprolol Succinate) 100 Mg Tab.er.24h, 100 MG PO DAILY, (Reported) Multivitamin (Multi-Vitamin Daily) 1 Tab Tab, 1 TAB PO DAILY, (Reported) Travoprost (Travatan Z) 50 Drop/2.5 Ml Soln, 1 DROP OU QHS, (Reported) Allergies Coded Allergies: No Known Allergies (Unverified , 06/12/15) MAU ANGEL MD May 21, 2020 16:44
--- NOTE | 2020-06-02 07:37 | ECGEPIP ---
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
== END 2020-05-21 17:05 | disposition home health service (06) | DRG 66 ==
LOC: M ED 11:20 → M ED INP 12:46 → M MSPAV 15:03
PROVIDERS: ADMIT Internal Medicine; ATTEND Internal Medicine
DX: I63.9 Cerebral infarction, unspecified (principal); I10 Essential (primary) hypertension; H40.9 Unspecified glaucoma; G50.9 Disorder of trigeminal nerve, unspecified; Z79.82 Long term (current) use of aspirin; Z79.899 Other long term (current) drug therapy

== ENCOUNTER → 2020-05-28 | Outpatient (CLI) | payer MEDICARE, OTHER ==
[~2020-05-28] MED LIST changes: +ASPI81TA86 PO; +CARB100T PO; +CETI5TAB2 PO; +GABA-845 PO; +HYDR25TAB PO
== END ==
LOC: M WUC 11:09
PROVIDERS: ATTEND Physician Assistant Medical
DX: I63.9 Cerebral infarction, unspecified (principal); Z79.82 Long term (current) use of aspirin; Z79.899 Other long term (current) drug therapy

== ENCOUNTER → 2020-06-04 | Outpatient (CLI) | payer MEDICARE, OTHER ==
--- NOTE | 2020-06-20 09:00 | REP ---
DUPLEX CAROTID SONOGRAPHY HISTORY: Carotid stenosis. COMPARISON: Sonography 08/31/2019. SONOGRAPHIC FINDINGS: Antegrade flow is observed in the left vertebral artery. Right vertebral artery is not seen. This is unchanged from the prior study. RIGHT CAROTID: There is moderate plaquing in the right distal CCA. Moderate mixed plaquing is seen in the bulb and proximal ICA on the right side. Elevated systolic ICA and borderline diastolic velocities are observed on the right today, similar to the prior study. VELOCITY CHART RIGHT CAROTID PSV EDV CCA 136 cm/s ICA 2138 cm/s 41 cm/s ECA 118 cm/s ICA/CCA ratio 1.56 (slightly elevated) IMPRESSION: 50% to 69% category narrowing in the right internal carotid artery (ICA) by Doppler velocity criteria. Velocities are essentially unchanged although diastolic velocity recorded is slightly higher compared to the prior study. LEFT CAROTID: The left common carotid artery shows mixed soft plaquing. There is moderate mixed plaquing in the bulb, proximal ICA and proximal ECA on the left side, similar to the prior study. VELOCITY CHART LEFT CAROTID PSV EDV CCA 164 cm/s ICA 126 cm/s 19 cm/s ECA 94 cm/s ICA/CCA ratio 0.77 (normal) IMPRESSION: 50% to 69% category narrowing in the left internal carotid artery (ICA) by Doppler velocity criteria. Probably near the lower end of this range. Systolic velocity in the left internal carotid artery (ICA) is a little lower today than on the prior study. MTDD
== END ==
LOC: M RAD 08:24
PROVIDERS: ATTEND Surgery Vascular Surgery
DX: I65.23 Occlusion and stenosis of bilateral carotid arteries (principal)

== ENCOUNTER → 2021-02-14 | Outpatient (CLI) | payer MEDICARE, OTHER ==
[~2021-02-14] MED LIST changes: +GABA-283 PO; -GABA-845 PO; +HYDR-3490 PO; -HYDR25TAB PO
[2021-02-14 12:06] LABS: BASO # 0.1 10^3/uL (0.0-0.2); BASO % 0.8 % (0.0-1.0); EOS # 0.2 10^3/uL (0.0-0.5); HEMOGLOBIN 14.5 g/dl (13.5-17.5); LYMPH # 2.2 10^3/uL (1.5-5.0); LYMPH % 30.9 % (24.0-44.0); MEAN CORPUSCULAR HEMOGLOBIN 31.2 pg (27.0-33.0); MEAN CORPUSCULAR HGB CONC 31.5 g/dl (32.0-36.5); MEAN CORPUSCULAR VOLUME 98.9 fl (80.0-96.0); MONO % 13.9 % (2.0-8.0); NEUTROPHILS # 3.7 10^3/uL (1.5-8.5); NEUTROPHILS % 51.1 % (36.0-66.0); PLATELET COUNT, AUTOMATED 167 10^3/uL (150-450); RED BLOOD COUNT 4.65 10^6/uL (4.30-6.10); WHITE BLOOD COUNT 7.3 10^3/uL (4.0-10.0)
[2021-02-14 13:12] LABS: ALBUMIN 3.6 GM/DL (3.2-5.2); ALT/SGPT 25 U/L (12-78); BILIRUBIN,TOTAL 0.4 MG/DL (0.2-1.0); BLOOD UREA NITROGEN 16 MG/DL (7-18); CALCIUM LEVEL 9.1 MG/DL (8.8-10.2); CARBAMAZEPINE (TEGRETOL) LEVEL 7.5 UG/ML (4.0-10.0); CARBON DIOXIDE LEVEL 32 MEQ/L (21-32); CHLORIDE LEVEL 106 MEQ/L (98-107); CHOLESTEROL LEVEL 199 MG/DL (<200); CHOLESTEROL RISK RATIO 5.527 (<5); CREATININE FOR GFR 1.06 MG/DL (0.70-1.30); GLOMERULAR FILTRATION RATE > 60.0 (>35); GLUCOSE, FASTING 79 MG/DL (70-100); HDL CHOLESTEROL 36 MG/DL (>40); LDL CHOLESTEROL 88 MG/DL (<100); NON-HDL-C 163 MG/DL; POTASSIUM SERUM 4.1 MEQ/L (3.5-5.1); SODIUM LEVEL 143 MEQ/L (136-145); TOTAL PROTEIN 6.8 GM/DL (6.4-8.2); TRIGLYCERIDES LEVEL 377 MG/DL (<150)
== END ==
LOC: M WUC 09:41
PROVIDERS: ATTEND Family Medicine
DX: G50.0 Trigeminal neuralgia (principal); I10 Essential (primary) hypertension

== ENCOUNTER 2021-07-04 04:31 | Inpatient (IN) | payer MEDICARE, OTHER ==
--- OUTSIDE RECORDS SUMMARY | 2021-07-04 04:36 | CCD | Continuity of Care Document ---
Author Author Juan SANTO P.A.-C. Organization Unknown Address [address] [place] [id number] Phone [phone] Care Team Providers Care Communications Analyst Name Role Phone Chloe Briseno M.D. AUTM [phone] Problems Active Problems Provider Date Trigeminal neuralgia Janice Aldridge M.D. Onset: 04/13/2014 Social History Type Date Description Comments Sex Unknown Tobacco Use Start: Unknown End: Unknown Patient is a former smoker Allergies, Adverse Reactions, Alerts Description No Known Drug Allergies Medications Active Medications SIG Qnty Indications Ordering Provide r Date Afo Lle left foot drop, m21.372, difficulty walking, r26.2 1un its M21.372 Janice Aldridge M.D. 06/11/2021 Tegretol-XR 100mg Tablets ER 12HR take 2 tabs by mouth bid. 360db Aldridge M.D. 017 Clopidogrel Bisulfate 75mg Tablets Take 1 Tablet Daily 90db Aldridge M.D. 09/25/2014 Gabapentin 600mg Tablets 1 po bid, discontinue 100 mg and 400 mg doses Unknown History Medications Gabapentin 100mg Capsules 2 caps by mouth twice a day with 400 mg dose 360Jake Brower 12/18/2020 - 06/11/2021 Gabapentin 100mg Capsules 2 caps by mouth twice a day with 400 mg dose, new directions 120jared Aldridge M.D. 12/16/2020 - 06/11/2021 Immunizations Description No Information Available Vital Signs Date Vital Result Comment 06/11/2021 6:36am BP Systolic 110 mmHg Lue BP Diastolic 60 mmHg Lue BP Systolic Recheck 138 mmHg Rue BP Diastolic Recheck 60 mmHg Rue Heart Rate 60 /min Respiratory Rate 16 /min 03/11/2021 7:21am BP Systolic 120 mmHg BP Diastolic 60 mmHg Heart Rate 64 /min Respiratory Rate 16 /min Results Description No Information Available Procedures Date Code Description Status 06/11/2021 88978 Office/Outpatient Established Mo d MDM 30-39 Min Completed 03/11/2021 53316 Office/Outpatient Established Mo d MDM 30-39 Min Completed Medical Devices Description No Information Available Encounters Type Date Location Provider Dx Diagnosis Office Visit 06/11/2021 8:30a Main office - [place] Jessica Guzman.A.-C. 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 06/11/2021 I63.89 Other cerebral infarction Jessica Okeefe.A.-C. 06/11/2021 G50.0 Trigeminal neuralgia Kezia MattsonA.-CRad 06/11/2021 H53.8 Other visual disturbances Jessica Okeefe.A.-CRad 06/11/2021 R26.81 Unsteadiness on feet Latrell Mattson-CRad 06/11/2021 M21.372 Foot drop, left foot Helene JLatrell Duong-C. 06/11/2021 R26.2 Difficulty in walking, not elsew here classified Latrell Junior-C. 03/11/2021 I63.89 Other cerebral infarction Helene Santo P.A.-C. 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 03/11/2021 R26.81 Unsteadiness on feet Mohsen Mattson.-CRad Plan of Treatment Future Appointment(s):* 12/04/2021 8:45 am - Helene Santo P.A.-C. at Main office [facility] 06/11/2021 - Helene Santo P.A.-C.* I65.23 Occlusion and stenosis of bilateral carotid arteries* Comments:* Follow up with Dr Smith. 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 * I63.89 Other cerebral infarction* Comments:* Continue Plavix, Lipitor, and aspirin. * G50.0 Trigeminal neuralgia* Comments:* Continue Tegretol and gabapentin. * H53.8 Other visual disturbances* Comments:* Follow up with [facility]. * R26.81 Unsteadiness on feet* Comments:* He declines formal PT. He will try to do home exercises. * M21.372 Foot drop, left foot* New Medication:* Afo Lle - left foot drop, m21.372, difficulty walking, r26.2 * Comments:* Order for AFO given. * R26.2 Difficulty in walking, not elsewhere classified* Comments:* Order for AFO given. Continue use of walker or wheelchair. * Follow up:* 6 months. They do not like to come out in the winter. Functional Status Description No Information Available Mental Status Description No Information Available Referrals Description No Information Available
--- OUTSIDE RECORDS SUMMARY | 2021-07-04 04:37 | CCD ---
Author Author [facility] Organization [facility] Address Unknown Phone Unavailable Care Team Providers Care Hospital Unit Coordinator Name Role Phone Trickey, J Helene PA Unavailable Unavailable Trickey, J Helene PA Unavailable Unavailable Trickey, J Helene PA Unavailable Unavailable Trickey, J Helene PA Unavailable Unavailable Trickey, J Helene PA Unavailable Unavailable Trickey, J Helene PA Unavailable Unavailable Trickey, J Helene PA Unavailable Unavailable Trickey, J Helene PA Unavailable Unavailable Trickey, J Helene PA Unavailable Unavailable Trickey, J Helene PA Unavailable Unavailable Trickey, J Helene PA Unavailable Unavailable Trickey, J Helene PA Unavailable Unavailable Trickey, J Helene PA Unavailable Unavailable Trickey, J Helene PA Unavailable Unavailable Trickey, J Helene PA Unavailable Unavailable Trickey, J Helene PA Unavailable Unavailable Trickey, J Helene PA Unavailable Unavailable Trickey, J Helene PA Unavailable Unavailable Trickey, J Helene PA Unavailable Unavailable Trickey, J Helene PA Unavailable Unavailable Trickey, J Helene PA Unavailable Unavailable Trickey, J Helene PA Unavailable Unavailable Trickey, J Helene PA Unavailable Unavailable Trickey, J Helene PA Unavailable Unavailable Trickey, J Helene PA Unavailable Unavailable Trickey, J Helene PA Unavailable Unavailable Trickey, J Helene PA Unavailable Unavailable Trickey, J Helene PA Unavailable Unavailable Trickey, J Helene PA Unavailable Unavailable Trickey, J Helene PA Unavailable Unavailable Trickey, J Helene PA Unavailable Unavailable Trickey, J Helene PA Unavailable Unavailable Trickey, J Helene PA Unavailable Unavailable Trickey, J Helene PA Unavailable Unavailable Trickey, J Helene PA Unavailable Unavailable Trickey, J Helene PA Unavailable Unavailable Trickey, J Helene PA Unavailable Unavailable Trickey, J Helene PA Unavailable Unavailable Trickey, J Helene PA Unavailable Unavailable Trickey, J Helene PA Unavailable Unavailable Trickey, J Helene PA Unavailable Unavailable Trickey, J Helene PA Unavailable Unavailable Trickey, J Helene PA Unavailable Unavailable Trickey, J Helene PA Unavailable Unavailable Trickey, J Helene PA Unavailable Unavailable Trickey, J Helene PA Unavailable Unavailable Trickey, J Helene PA Unavailable Unavailable Trickey, J Helene PA Unavailable Unavailable Trickey, J Helene PA Unavailable Unavailable Finn, Chevy Corona MD Unavailable Unavailable Finn, Chevy Corona MD Unavailable Unavailable Finn, Chevy Corona MD Unavailable Unavailable Finn, Chevy Corona MD Unavailable Unavailable Finn, Chevy Corona MD Unavailable Unavailable Finn, Chevy Corona MD Unavailable Unavailable Finn, Chevy Corona MD Unavailable Unavailable Finn, Chevy Corona MD Unavailable Unavailable Finn, Chevy Corona MD Unavailable Unavailable Finn, Chevy Corona MD Unavailable Unavailable Finn, Chevy Corona MD Unavailable Unavailable Finn, Chevy Corona MD Unavailable Unavailable Ifnn, Chevy Corona MD Unavailable Unavailable Finn, Chevy Corona MD Unavailable Unavailable Finn, Chevy Corona MD Unavailable Unavailable Finn, Chevy Corona MD Unavailable Unavailable Finn, Chevy Corona MD Unavailable Unavailable Finn, Chevy Corona MD Unavailable Unavailable Finn, Chevy Corona MD Unavailable Unavailable Finn, Chevy Corona MD Unavailable Unavailable Finn, Chevy Corona MD Unavailable Unavailable Finn, A Chloe SKELTON Unavailable Unavailable Finn, A Chloe SKELTON Unavailable Unavailable Finn, Chevy Corona MD Unavailable Unavailable Finn, Chevy Corona MD Unavailable Unavailable Ifnn, Chevy Corona MD Unavailable Unavailable Finn, Chevy Corona MD Unavailable Unavailable Finn, Chevy Corona MD Unavailable Unavailable Finn, Chevy Corona MD Unavailable Unavailable Finn, Chevy Corona MD Unavailable Unavailable Finn, Chevy Corona MD Unavailable Unavailable Finn, Chevy Corona MD Unavailable Unavailable Finn, Chevy Corona MD Unavailable Unavailable Finn, Chevy Corona MD Unavailable Unavailable Finn, Chevy Corona MD Unavailable Unavailable Finn, Chevy Corona MD Unavailable Unavailable Finn, Chevy Corona MD Unavailable Unavailable Finn, Chevy Corona MD Unavailable Unavailable Finn, Chevy Corona MD Unavailable Unavailable Finn, Chevy Corona MD Unavailable Unavailable Finn, Chevy Corona MD Unavailable Unavailable Finn, Chevy Corona MD Unavailable Unavailable Finn, Chevy Corona MD Unavailable Unavailable Finn, Chevy Corona MD Unavailable Unavailable Finn, Chevy Corona MD Unavailable Unavailable Finn, Chevy Corona MD Unavailable Unavailable Finn, Chevy Corona MD Unavailable Unavailable Finn, Chevy Corona MD Unavailable Unavailable Finn, A Chloe MD Unavailable Unavailable Finn, A Chloe MD Unavailable Unavailable Finn, A Chloe MD Unavailable Unavailable Finn, A Chloe MD Unavailable Unavailable Finn, A Chloe MD Unavailable Unavailable Finn, A Chloe MD Unavailable Unavailable Finn, A Chloe MD Unavailable Unavailable Finn, A Chloe MD Unavailable Unavailable Finn, A Chloe MD Unavailable Unavailable Finn, A Chloe MD Unavailable Unavailable Finn, A Chloe MD Unavailable Unavailable Finn, A Chloe MD Unavailable Unavailable Finn, A Chloe MD Unavailable Unavailable Finn, A Chloe MD Unavailable Unavailable Finn, A Chloe MD Unavailable Unavailable Finn, A Chloe MD Unavailable Unavailable Finn, A Chloe MD Unavailable Unavailable Finn, A Chloe MD Unavailable Unavailable Finn, A Chloe MD Unavailable Unavailable Finn, A Chloe MD Unavailable Unavailable Finn, A Chloe MD Unavailable Unavailable Finn, A Chloe MD Unavailable Unavailable Finn, A Chloe MD Unavailable Unavailable Finn, A Chloe MD Unavailable Unavailable Finn, A Chloe MD Unavailable Unavailable Finn, A Chloe MD Unavailable Unavailable Finn, A Chloe MD Unavailable Unavailable Finn, A Chloe MD Unavailable Unavailable Finn, A Chloe MD Unavailable Unavailable Finn, A Chloe MD Unavailable Unavailable Finn, A Chloe MD Unavailable Unavailable Finn, A Chloe MD Unavailable Unavailable Finn, A Chloe MD Unavailable Unavailable Finn, A Chloe MD Unavailable Unavailable Re-disclosure Warning The records that you are about to access may contain information from federally-assisted alcohol or drug abuse programs. If such information is present, then the following federally mandated warning applies: This information has been disclosed to you from records protected by federal confidentiality rules (42 CFR part 2). The federal rules prohibit you from making any further disclosure of this information unless further disclosure is expressly permitted by the written consent of the person to whom it pertains or as otherwise permitted by 42 CFR part 2. A general authorization for the release of medical or other information is NOT sufficient for this purpose. The Federal rules restrict any use of the information to criminally investigate or prosecute any alcohol or drug abuse patient.The records that you are about to access may contain highly sensitive health information, the redisclosure of which is protected by Article 27-F of the [facility] Public Health law. If you continue you may have access to information: Regarding HIV / AIDS; Provided by facilities licensed or operated by the [facility] Office of Mental Health; or Provided by the [facility] Office for People With Developmental Disabilities. If such information is present, then the following [facility] mandated warning applies: This information has been disclosed to you from confidential records which are protected by state law. State law prohibits you from making any further disclosure of this information without the specific written consent of the person to whom it pertains, or as otherwise permitted by law. Any unauthorized further disclosure in violation of state law may result in a fine or fci sentence or both. A general authorization for the release of medical or other information is NOT sufficient authorization for further disc losure. Family History Family Member Name Family Member Gender Family Member Status Date o f Status Description Data Source(s) Unknown Unknown Problem [facility] ([facility] Unknown Unknown Problem [facility] ([facility] with brother Encounters Encounter Providers Location Date Indications Data Source(s ) Outpatient Attender: Helene Santo [facility] 06/11/2021 08:30:00 AM EDT [facility] ([facility] Outpatient Attender: Helene ESCOBAR [facility] 03/11/2021 09:00:00 AM EDT [facility] ([facility]) Outpatient Attender: Chloe Briseno MD Main Office 01/30/2021 08:00:0 0 AM EDT [facility] ([facility] Office Visit Attender: Helene ESCOBAR [facility] 12/05/2020 08:00:00 AM EDT [facility] ([facility]) Outpatient Attender: Helene ESCOBAR [facility] 08/07/2020 07:00:00 AM EST [facility] ([facility]) Outpatient Attender: Chloe Briseno MD Main Office 07/30/2020 07:30:0 0 AM EST [facility] ([facility] Outpatient Attender: Chloe Briseno MD Main Office 05/28/2020 10:00:0 0 AM EDT [facility] ([facility] Outpatient Attender: Helene ESCOBAR [facility] 05/24/2020 09:00:00 AM EDT [facility] ([facility]) Outpatient Attender: Helene ESCOBAR Main office - [facility] 05/07/2020 08:00:00 AM EDT [facility] ([facility]) Immunizations Vaccine Date Status Description Data Source(s) COVID-19 VACCINE Pfizer 11/10/2020 12:00:00 AM EST completed [facility] Vaccine Series Complete: YESThis Data wa s Submitted to [facility] Via [employer]. Pfizer-Sars-(Covid-19) vaccine, mRNA, LNP-S, PF, 30 mc g/ 0.3 mL 11/09/2020 11:00:00 PM EST completed [facility] ([facility] COVID-19 VACCINE Pfizer 10/20/2020 12:00:00 AM EST completed [facility] Vaccine Series Complete: NOThis Data was Submitted to [facility] [employer]. Pfizer-Sars-(Covid-19) vaccine, mRNA, LNP-S, PF, 30 mc g/ 0.3 mL 10/19/2020 11:00:00 PM EST completed [facility] ([facility] New in 2012. IIV4 06/24/2020 10:02:00 AM EDT completed [facility] ([facility] Medications Medication Brand Name Start Date Product Form Dose Route Admi nistrative Instructions Pharmacy Instructions Status Indications Reaction Description Data Source(s) 240 mcg/0.7 mL 06/23/2021 12:00:00 AM EDT syringe 0 INJECT DIRECTED INJECT DIRECTED SOLD: 06/23/2021 [facility] 06/11/2021 12:00:00 AM EDT active [facility] ([facility]) 100 mg 12/21/2020 12:00:00 AM EDT capsule 120 TAKE 2 CAPSULES BY MOUTH TWO TIMES A DAY WITH 400MG DOSE, MAXIMUM DAILY DOSE = 4 CAPSULES TAKE 2 CAPSULES BY MOUTH TWO TIMES A DAY WITH 400MG DOSE, MAXIMUM DAILY DOSE = 4 CAPSULES SOLD: 12/21/2020 [facility] gabapentin 100 MG Oral Capsule Gabapentin 12/18/2020 12:00:00 AM EDT ORAL completed [facility] ([facility] 100 mg 12/17/2020 12:00:00 AM EDT capsule 20 TAKE TWO CAPSULES BY MOUTH AT BEDTIME WITH 400 MG TAKE TWO CAPSULES BY MOUTH AT BEDTIME WITH 400 MG SOLD : 12/17/2020 [facility] gabapentin 100 MG Oral Capsule Gabapentin 12/16/2020 12:00:00 AM EDT ORAL completed [facility] ([facility]) cetirizine hydrochloride 5 MG Oral Tablet Cetirizine HCL 05/21/2020 12:00:00 AM EDT active [facility] ([facility] Insurance Providers Payer name Policy type / Coverage type Policy ID Covered libertarian ID Covered libertarian's relationship to mercado Policy Mercado Plan Information POMCO [id number] WI2 [id number] POMCO [id number] WI2 [id number] MEDICARE [id number] SP [id number] [id number] Medicare Part B Medicare Primary [id number] Self [id number] Umr Commercial [id number] Self [id number] Umr [facility] Part B [id number] Family Dependent [id number] Medicare [place] Primary [id number] Self [id number] Medicare Part B Medicare Primary [id number] Self [id number] Umr/Uhc/[employer]om[employer] Health Maintenance Organization (HMO) [id number] Family Dependent Y [id number] Umr[employer]Uhc[employer] Health Maintenance Organization (HMO) [id number] Family Dependent Y [id number] MEDICARE [id number] SP [id number] [id number] MEDICARE [id number] SP [id number] A [employer] Commercial [id number] Family Dependent [id number] [employer] [id number] Family Dependent [id number] [employer] [id number] Family Dependent [id number] [employer] Commercial [id number] Family Dependent MEDICARE C [id number] S [id number] A [employer] PPO O [id number] P [id number] [employer] PPO O [id number] P [id number] r Commercial [id number] Family Dependent [id number] [facility] [id number] [facility] [id number] R O [id number] S [id number] MEDICARE C [id number] S [id number] [id number] Problems, Conditions, and Diagnoses No Information Surgeries/Procedures Procedure Description Date Indications Data Source(s) OFFICE OUTPATIENT VISIT 25 MINUTES 06/11/2021 12:00:00 AM EDT [facility] ([facility] OFFICE OUTPATIENT VISIT 25 MINUTES 03/11/2021 12:00:00 AM EDT [facility] ([facility] PHYSICIAN TELEPHONE EVALUATION 11-20 MIN 12/05/2020 12 :00:00 AM EDT [facility] ([facility] Magnetic Resonance Angiography Neck W/O And Then With Contra st ML 08/30/2020 12:00:00 AM EST [facility] ([facility] Magnetic Resonance Angiography Neck W/O And Then With Contra st ML 08/30/2020 12:00:00 AM EST [facility] ([facility] FALLS RISK ASSESSMENT DOCUMENTED 08/07/2020 12:00:00 A M EST [facility] ([facility] FALLS RISK ASSESSMENT DOCUMENTED 05/24/2020 12:00:00 A M EDT [facility] ([facility] MRI BRAIN BRAIN STEM W/O CONTRAST MATERIAL 05/18/2020 12:00:00 AM EDT [facility] ([facility] MRI BRAIN BRAIN STEM W/O CONTRAST MATERIAL 05/18/2020 12:00:00 AM EDT [facility] ([facility] MRI SPINAL CANAL LUMBAR W/O CONTRAST MATERIAL 05/18/20 20 12:00:00 AM EDT [facility] ([facility] MRI SPINAL CANAL LUMBAR W/O CONTRAST MATERIAL 05/18/20 20 12:00:00 AM EDT [facility] ([facility] FALLS RISK ASSESSMENT DOCUMENTED 05/07/2020 12:00:00 A M EDT [facility] ([facility] Results ID Date Data Source [id number] 02/14/2021 09:43:00 AM EDT [facility] ([facility] Name Value Range Interpretation Code Description Data Carmita rce(s) Supporting Document(s) Triglycerides Level 377 mg/dL [facility] ([facility] Cholesterol Level 199 mg/dL [facility] ([facility] HDL Cholesterol 36 mg/dL [facility] ([facility] Cholesterol Risk Ratio 5.527 [facility] ([facility] Non-HDL-C 163 mg/dL [facility] ([facility] LDL Cholesterol 88 mg/dL [facility] ([facility] ID Date Data Source [id number] 02/14/2021 09:43:00 AM EDT [facility] ([facility] Name Value Range Interpretation Code Description Data Carmita rce(s) Supporting Document(s) Glucose, Fasting 79 mg/dL 70-100 [facility] ([facility] Blood Urea Nitrogen 16 mg/dL 7-18 [facility] ([facility] Creatinine For GFR 1.06 mg/dL 0.70-1.30 [facility] ([facility] Glomerular Filtration Rate Laboratory test result [facility] ([facility] <content>Units are mL/min/1.73 m2</content>
<content></content>
<content>Chronic Kidney Disease Staging per NKF:</content>
<content></content>
<content>Stage I & II GFR >=60 Normal to Mildly Decreased</content>
<content>Stage III GFR 30-59 Moderately Decreased</content>
<content>Stage IV GFR 15-29 Severely Decreased</content>
<content>Stage V GFR <15 Very Little GFR Left</content>
<content>ESRD GFR <15 on BUSINESS SUPPORT ADMINISTRATOR</content>
<content></content> Potassium Serum 4.1 meq/L 3.5-5.1 [facility] ([facility] Sodium Level 143 meq/L 136-145 [facility] ([facility] Chloride Level 106 meq/L 98-107 [facility] ([facility] Carbon Dioxide Level 32 meq/L 21-32 [facility] ([facility] Calcium Level 9.1 mg/dL 8.8-10.2 [facility] ([facility] Anion Gap 5 meq/L 8-16 [facility] ([facility] Ast/Sgot 24 U/L 7-37 [facility] ([facility] Alt/SGPT 25 U/L 12-78 [facility] ([facility] Total Protein 6.8 GM/DL 6.4-8.2 [facility] ([facility] Bilirubin,Total 0.4 mg/dL 0.2-1.0 [facility] ([facility] Alkaline Phosphatase 133 U/L 45-117 [facility] ([facility] Albumin/Globulin Ratio 1.1 [facility] ([facility] Albumin 3.6 GM/DL 3.2-5.2 [facility] ([facility] ID Date Data Source [id number] 02/14/2021 09:43:00 AM EDT [facility] ([facility] Name Value Range Interpretation Code Description Data Camrita rce(s) Supporting Document(s) White Blood Count 7.3 10 4.0-10.0 [facility] ([facility] Hemoglobin 14.5 g/dL 13.5-17.5 [facility] ([facility] Red Blood Count 4.65 10 4.30-6.10 [facility] ([facility] Hematocrit 46.0 % 42.0-52.0 [facility] ([facility] Mean Corpuscular Volume 98.9 fl 80.0-96.0 M [facility] ([facility] Mean Corpuscular Hemoglobin 31.2 pg 27.0-33.0 [facility] ([facility] Mean Corpuscular HGB Conc 31.5 g/dL 32.0-36.5 [facility] ([facility] Red Cell Distribution Width 12.6 % 11.5-14.5 [facility] ([facility] Neutrophils % 51.1 % 36.0-66.0 [facility] ([facility] Platelet Count, Automated 167 10 150-450 [facility] ([facility] Dillon % 13.9 % 2.0-8.0 [facility] ([facility] Lymph % 30.9 % 24.0-44.0 [facility] ([facility] Baso % 0.8 % 0.0-1.0 [facility] ([facility] Eos % 3.0 % 0.0-3.0 [facility] ([facility] Immature Granulocyte % 0.3 % 0-3.0 [facility] ([facility] Nucleated Red Blood Cell % 0.0 % 0-0 [facility] ([facility] Neutrophils # 3.7 10 1.5-8.5 [facility] ([facility] Lymph # 2.2 10 1.5-5.0 [facility] ([facility] Baso # 0.1 10 0.0-0.2 [facility] ([facility] Eos # 0.2 10 0.0-0.5 [facility] ([facility] Dillon # 1.0 10 0.0-0.8 [facility] ([facility] ID Date Data Source [id number] 02/14/2021 09:43:00 AM EDT [facility] ([facility] Name Value Range Interpretation Code Description Data [facility] Supporting Document(s) Carbamazepine [Mass/volume] in Serum or Plasma 7.5 UG/ML 4.0-10.0 [facility] ([facility] ID Date Data Source [id number] 05/28/2020 11:15:00 AM EDT [facility] ([facility]) Name Value Range Interpretation Code Description Data Carmita [facility](s) Supporting Document(s) Laboratory test finding (navigational concept) Laboratory test result [facility] ([facility]) . Interpretive Result Table INTERPRETIVE RESULT: Negative TEST: NOTCH3 TECHNICAL RESULT: No abnormal variants detected CLINICAL RELEVANCE: See Limitations of Analysis Laboratory test finding (navigational concept) Laboratory test result [facility] ([facility]) . NEGATIVE This test did not identify any variants associated with cerebral autosomal dominant arteriopathy with subcortical infarcts and leukoencephalopathy (CADASIL). Laboratory test finding (navigational concept) Laboratory test result [facility] ([facility]) . 1. Krissy Mac et al. (2013) J Clin Aria rosci 20: 322-3. (PMID: 60438945) 2. LEONARD Faith, et al. (2013) J Chin Med Assoc 76: 319-24. (PMID: 10626807) 3. Melida Laboy et al. (2009) Bra in 132: 1601-12. (PMID: 91177583) 4. Edison S, et al. (2009) Brain 132: 9 33-9. (PMID: 54967213) 5. Mike Albright et al. (2013) J Clin A esthet Dermatol 6: 29-33. (PMID: 64532349) 6. Anders Maya, et al. (2012) PLoS One 7: e 21629. (PMID: 68770078) This test was developed and its analytical performance characteristics have been determined by [facility]. It has not been cleared or approved by the U.S. Food and Drug Administration. This assay has been validated pursuant to the CLIA regulations and is used for clinical purposes. Performed at: - [facility] [address] [id number] Pin Drafter: Rajan Jeronimo PhD, Phone: [phone] Laboratory test finding (navigational concept) Laboratory test result [facility] ([facility], ) . Comments: While this analysis did not identify any pathogenic or likely pathogenic variants associated with cerebral autosomal dominant arteriopathy with subcortical infarcts and leukoencephalopathy (CADASIL), the diagnosis cannot be compl etely ruled out due to variants not detected by this assay or variants in another gene. completely ruled out due to mutations not detected by this assay or mutations in another gene. Clinical limitations: Pathogenic variants in the NOTCH3 gene are reported to cause cerebral autosomal dominant arteriopathy with subcortical infarcts and leukoencephalopathy (CADASIL). Other testing available: Other disorders may appear clinically similar to those caused by pathogenic variants in this gene. [facility] recommends additional testing, if not already performed, based on this individual's clinical presentation and family history. Please contact the [facility] Client Services Department or visit [employer] for information regarding additional testing. Background information: Cerebral small vessel disease represents a heterogeneous group of disorders leading to stroke and cognitive impairment. While most small vessel diseases appear sporadic and related to age and hypertension, a minority of patients with familial small vessel disease carry pathogenic variants in one of the known small vessel disease genes such as the NOTCH3 gene. CADASIL is a hereditary small vessel disease of the brain leading to recurrent strokes, migraine with aura, cognitive decline, and dementia. In some individuals, mood disturbances and other neurological manifestations, including focal or generalized seizures, may also be present. Pathogenic variant in the NOTCH3 gene have been associated with CADASIL. The NOTCH3 gene encodes NOTCH3, a cell surface receptor important in arterial development. Pathogenic variants in NOTCH3 cause degeneration of VSMCs and thickening of the arterial case. CADASIL resulting from pathogenic variants in this gene is inherited as an autosomal dominant disorder. The majority of pathogenic variants have been reported to be loss or gain of a cysteine in EGF motifs. NOTCH3 gene information: NEY ID: *[id number]; Chromosome Location: 19p13.12; NCBI Reference Sequence: [id number]; In the cDNA, the initiator codon, ATG (methionine), is designated as codon number 1 and the "A" is designated as nucleotide +1. The initiator codon is located in exon 1 and all subsequent numbering is sequential. 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 DNA sequencing was performed using advanced ("next-generation") sequencing technology. Advanced sequencing was performed on sheared genomic DNA libraries enriched for target regions using in-solution hybrid capture. Target regions include coding regions in exons and at least ten non-coding nucleotides adjacent to each of these coding regions. Resulting sequences were then analyzed using bioinformatics tools in a standardized process that includes alignment to the GRCh37/hg19 genomic build and use of the Genome Analysis Toolkit 2.3-9 for variant detection. A mean coverage depth of at least 30 sequencing reads is obtained within each target region, with a minimum coverage depth of at least 20X. Target regions with coverage depths less than the minimum are not reported. Internal testing demonstrated approximately 99% sensitivity and approximately 99% specificity for detecting DNA sequence variation. In some limited circumstances, such as for regions that are difficult to sequence using advanced sequencing, [place] sequencing of PCR-amplified target regions (using bi-directional sequence or alternate dye chemistries) may be performed in lieu of this process. Benign and likely benign variants, if identified, are considered normal and are not reported, but are available upon request. Limitations of DNA sequencing analysis: This method does not detect large deletions, insertions, or structural variations, and may not detect variants in patients exhibiting mosaicism. Furthermore, allele dropout cannot be detected in [place] sequenced regions. Additionally, this test will not detect variants in low coverage regions, which may occur in an analysis of this scope. Regions with exceptionally high or low GC content, repetitive regions or regions having a high degree of similarity with other regions in the genome are more susceptible to low coverage and/or reduced sensitivity. Furthermore, this test does not detect variants in regions of the gene not analyzed (including promoter, 5' and 3' untranslated regions, introns, and certain regions having consistently low coverage).Although rare, false positive or false negative results may occur. All results should be interpreted in the context of clinical findings, relevant history, and other laboratory data. Limitation of variant analysis: The classification and interpretation of the variant(s) identified reflect the current state of [facility]' understanding at the time of this report. Variant classification and interpretation are subject to professional judgment, and may change for a variety of reasons, including but not limited to, updates in classification guidelines and availability of additional scientific and clinical information. This test result should be used in conjunction with the health care provider's clinical evaluation. Inquiry regarding potential changes to the classification of the variant is strongly recommended prior to making any clinical decision. For questions regarding variant classification updates or our [facility], please call [facility] at [phone] to speak to a genetic couns elor or crime laboratory analyst, or visit [email or web address]. Procedure Social History Code Duration Value Status Description Data Source(s ) Smoking 07/30/2020 12:00:00 AM EST Patient is a former smoker completed Patient is a former smoker [facility] ([facility] Vital Signs ID Date Data Source UNK Name Value Range Interpretation Code Description Data Source(s) Systolic blood pressure 110 mm[Hg] 110 mm[Hg] M LORENA ([facility], ) Lue Diastolic blood pressure 60 mm[Hg] 60 mm[Hg] CARLOS ([facility], ) Lue Systolic blood pressure 138 mm[Hg] 138 mm[Hg] M LORENA ([facility], ) Rue Diastolic blood pressure 60 mm[Hg] 60 mm[Hg] [facility] ([facility], ) Rue Heart rate 60 /min 60 /min [facility] ([facility], ) Respiratory rate 16 /min 16 /min MEDENT ( [facility], ) Heart rate 64 /min 64 /min [facility] ([facility], ) Diastolic blood pressure 60 mm[Hg] 60 mm[Hg] [facility] ([facility], ) Respiratory rate 16 /min 16 /min [facility] ( [facility], ) Systolic blood pressure 120 mm[Hg] 120 mm[Hg] M EDENT ([facility], ) Respiratory rate 16 /min 16 /min [facility] ( [facility] Body height 66 [in_i] 66 [in_i] [facility] ([facility] 5'6" Heart rate 63 /min 63 /min [facility] ([facility] Systolic blood pressure 159 mm[Hg] 159 mm[Hg] M EDENT ([facility] Diastolic blood pressure 57 mm[Hg] 57 mm[Hg] [facility] ([facility] Systolic blood pressure 155 mm[Hg] 155 mm[Hg] EDENT ([facility] recheck Diastolic blood pressure 57 mm[Hg] 57 mm[Hg] [facility] ([facility] recheck Body temperature 97.6 [degF] 97.6 [degF] [facility] ([facility] Body weight 190.12 [lb_av] 190.12 [lb_av] MEDEN T ([facility] Oxygen saturation in Arterial blood by Pulse oximetry 97 % 97 % [facility] ([facility] [place] body weight 142 [lb_av] 142 [lb_av] MEDEN T ([facility] Body mass index (BMI) [Ratio] 30.7 kg/m2 30.7 k g/m2 [facility] ([facility] Systolic blood pressure 140 mm[Hg] 140 mm[Hg] M EDENT ([facility], ) Rue Diastolic blood pressure 78 mm[Hg] 78 mm[Hg] MEDENT ([facility], ) Rue Systolic blood pressure 110 mm[Hg] 110 mm[Hg] M EDENT ([facility], ) Lue Diastolic blood pressure 60 mm[Hg] 60 mm[Hg] MED[facility] ([facility], ) Lue Heart rate 68 /min 68 /min [facility] ([facility], ) Respiratory rate 20 /min 20 /min MED[facility] ( [facility], ) Respiratory rate 18 /min 18 /min [facility] ( [facility] Systolic blood pressure 157 mm[Hg] 157 mm[Hg] EDENT ([facility] recheck Diastolic blood pressure 61 mm[Hg] 61 mm[Hg] [facility] ([facility] recheck Heart rate 59 /min 59 /min [facility] ([facility] Body temperature 97.5 [degF] 97.5 [degF] [facility] ([facility] Body mass index (BMI) [Ratio] 28.2 kg/m2 28.2 k g/m2 [facility] ([facility] Body height 66 [in_i] 66 [in_i] [facility] ([facility] 5'6" Body weight 174.50 [lb_av] 174.50 [lb_av] MEDEN T ([facility] [place] body weight 142 [lb_av] 142 [lb_av] MED[facility] T ([facility] Systolic blood pressure 185 mm[Hg] 185 mm[Hg] M EDENT ([facility] Diastolic blood pressure 59 mm[Hg] 59 mm[Hg] [facility] ([facility] Body temperature 97.2 [degF] 97.2 [degF] [facility] ([facility] Body height 66 [in_i] 66 [in_i] [facility] ([facility] 5'6" [place] body weight 142 [lb_av] 142 [lb_av] MEDEN T ([facility] Systolic blood pressure 131 mm[Hg] 131 mm[Hg] M EDENT ([facility] Body weight 181.12 [lb_av] 181.12 [lb_av] MEDEN T ([facility] Oxygen saturation in Arterial blood by Pulse oximetry 99 % 99 % [facility] ([facility] Diastolic blood pressure 61 mm[Hg] 61 mm[Hg] [facility] ([facility] Heart rate 55 /min 55 /min [facility] ([facility] Body temperature 97.5 [degF] 97.5 [degF] [facility] ([facility] Respiratory rate 20 /min 20 /min [facility] ( [facility] Body height 66 [in_i] 66 [in_i] [facility] ([facility] 5'6" [place] body weight 142 [lb_av] 142 [lb_av] MED[facility] T ([facility] Body mass index (BMI) [Ratio] 29.2 kg/m2 29.2 k g/m2 [facility] ([facility] Heart rate 64 /min 64 /min [facility] ([facility], ) Respiratory rate 16 /min 16 /min MED[facility] ( [facility], ) Systolic blood pressure 138 mm[Hg] 138 mm[Hg] M [facility] ([facility], ) Diastolic blood pressure 80 mm[Hg] 80 mm[Hg] [facility] ([facility], ) Heart rate 72 /min 72 /min [facility] ([facility], ) Respiratory rate 16 /min 16 /min [facility] ( [facility], ) Systolic blood pressure 140 mm[Hg] 140 mm[Hg] M [facility] ([facility], ) Diastolic blood pressure 80 mm[Hg] 80 mm[Hg] [facility] ([facility], )
[2021-07-04 05:45] LABS: BASO # 0.1 10^3/uL (0.0-0.2); BASO % 0.2 % (0.0-1.0); HEMATOCRIT 49.5 % (42.0-52.0); LYMPH # 1.2 10^3/uL (1.5-5.0); LYMPH % 5.6 % (24.0-44.0); MEAN CORPUSCULAR HEMOGLOBIN 31.7 pg (27.0-33.0); MEAN CORPUSCULAR HGB CONC 32.3 g/dl (32.0-36.5); MONO # 1.5 10^3/uL (0.0-0.8); MONO % 6.6 % (2.0-8.0); NEUTROPHILS # 19.4 10^3/uL (1.5-8.5); NEUTROPHILS % 87.1 % (36.0-66.0); PLATELET COUNT, AUTOMATED 200 10^3/uL (150-450); RED BLOOD COUNT 5.05 10^6/uL (4.30-6.10); WHITE BLOOD COUNT 22.2 10^3/uL (4.0-10.0)
[2021-07-04 05:53] LABS: ALBUMIN 3.6 GM/DL (3.2-5.2); ALT/SGPT 25 U/L (12-78); BILIRUBIN,TOTAL 0.8 MG/DL (0.2-1.0); BLOOD UREA NITROGEN 17 MG/DL (7-18); CALCIUM LEVEL 9.6 MG/DL (8.8-10.2); CARBON DIOXIDE LEVEL 33 MEQ/L (21-32); CHLORIDE LEVEL 103 MEQ/L (98-107); CK-MB VALUE MASS 1.5 NG/ML (<3.6); CPK CREATINE PHOSPHOKINASE 107 U/L (39-308); CREATININE FOR GFR 1.34 MG/DL (0.70-1.30); GLOMERULAR FILTRATION RATE 54.5 (>35); GLUCOSE, FASTING 157 MG/DL (70-100); MAGNESIUM LEVEL 1.8 MG/DL (1.8-2.4); POTASSIUM SERUM 4.5 MEQ/L (3.5-5.1); SODIUM LEVEL 141 MEQ/L (136-145); TOTAL PROTEIN 7.3 GM/DL (6.4-8.2); TROPONIN I < 0.02 NG/ML (< 0.10)
[2021-07-04] MEDS ORDERED: cefTRIAXone SOD 2 GM in D5W MINI-BAG PLUS 50 ML IV ONE (07:00)
--- NOTE | 2021-07-04 07:26 | REPVR ---
PROCEDURE INFORMATION: Exam: XR Chest Exam date and time: 07/04/2021 6:31 AM Age: 81 years old Clinical indication: Other: SOB TECHNIQUE: Imaging protocol: XR of the chest. Views: 1 view. COMPARISON: CR Chest, 1 view 06/11/2015 8:01 PM FINDINGS: Lungs: Low lung volumes with crowding of the bronchovascular markings and bibasilar atelectasis. No consolidation. Pleural spaces: No significant pleural effusions. No pneumothorax. Heart/Mediastinum: Borderline heart size which appears accentuated by low lung volumes. Tortuous and atherosclerotic thoracic aorta. Bones/joints: Bones are stable. Degenerative changes. Old right rib deformity. IMPRESSION: Hypoventilatory change with bibasilar atelectasis. No consolidation. Electronically signed by: Loco Adams On 07/04/2021 07:25:43 AM
[2021-07-04] MEDS ORDERED: ISOVUE-370 76% 100ML VIAL As Ordered ONE (07:27)
[2021-07-04] MEDS ORDERED: ECOT81TA5 PO (08:00)
[2021-07-04] MEDS ORDERED: GABA-283 PO (08:00)
[2021-07-04] MEDS ORDERED: HOME MED LIST COMPLETE! XX SCH (08:05)
--- NOTE | 2021-07-04 08:37 | ECGEPIP ---
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
--- NOTE | 2021-07-04 08:48 | REPVR ---
PROCEDURE INFORMATION: Exam: CTA Chest With Contrast Exam date and time: 07/04/2021 7:04 AM Age: 81 years old Clinical indication: Other: Pneumonia, aspiration, hypoxia TECHNIQUE: Imaging protocol: Computed tomographic angiography of the chest with contrast. 3D rendering (Not supervised by radiologist): MIP and/or 3D reconstructed images were created by the technologist. Radiation optimization: All CT scans at this facility use at least one of these dose optimization techniques: automated exposure control; mA and/or kV adjustment per patient size (includes targeted exams where dose is matched to clinical indication); or iterative reconstruction. Contrast material: ISOVUE 370; Contrast volume: 75 ml; Contrast route: INTRAVENOUS (IV); COMPARISON: CR Chest, 1 view 07/04/2021 5:59 AM FINDINGS: Pulmonary arteries: Normal. No pulmonary emboli. Aorta: Atherosclerotic disease of the thoracic aorta. 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 Lungs: Extensive bilateral dependent and compressve atelectasis more pronounced on the right. Atelectasis or scarring in the right middle lobe and lingula. Pleural spaces: Unremarkable. No pneumothorax. No pleural effusion. Heart: Atherosclerotic disease of coronary arteries. Cardiomegaly. Mediastinal space: Mildly distended fluid-filled esophagus. Suspect gastroesophageal reflux. Lymph nodes: Unremarkable. No enlarged lymph nodes. Diaphragm: Eventration of the right hemidiaphragm. Gallbladder and bile ducts: Cholelithiasis. No specific evidence of acute cholecystitis. 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 Soft tissues: Unremarkable. IMPRESSION: No acute pulmonary embolic disease. 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 Extensive bilateral dependent and compressve atelectasis more pronounced on the right. Atelectasis or scarring in the right middle lobe and lingula. Mildly distended fluid-filled esophagus. Suspect gastroesophageal reflux. Electronically signed by: Mayito Abraham On 07/04/2021 08:47:48 AM
--- OUTSIDE RECORDS SUMMARY | 2021-07-04 09:06 | CCD ---
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 If you continue you may have access to information: Regarding HIV / AIDS; Provided by facilities licensed or operated by the [facility] Office of Mental Health; or Provided by the [facility] Office for People With Developmental Disabilities. If such information is present, then the following [facility] mandated warning applies: This information has been [...] law may result in a fine or senior living sentence or both. A general authorization for [...] Data Source(s ) Outpatient Attender: Helene Santo [facility] 06/11/2021 08:30:00 AM EDT [facility] ([facility] Outpatient Attender: Helene ESCOBAR [facility] 03/11/2021 09:00:00 AM EDT [facility] ([facility]) Outpatient Attender: Chloe Briseno MD Main Office 01/30/2021 08:00:0 0 AM EDT [facility] ([facility] Office Visit Attender: Helene ESCOBAR [facility] 12/05/2020 08:00:00 AM EDT [facility] ([facility]) Outpatient Attender: Helene ESCOBAR [facility] 08/07/2020 07:00:00 AM EST [facility] ([facility]) Outpatient Attender: Chloe Briseno MD Main Office 07/30/2020 07:30:0 0 AM EST [facility] Outpatient Attender: Chloe Briseno MD Main Office 05/28/2020 10:00:0 0 AM EDT [facility] ([facility] Outpatient Attender: Helene ESCOBAR [facility] 05/24/2020 09:00:00 AM EDT [facility] ([facility]) Outpatient Attender: Helene ESCOBAR Main office - [facility] 05/07/2020 08:00:00 AM EDT [facility] ([facility]) Immunizations Vaccine Date Status Description Data Source(s) COVID-19 VACCINE Pfizer 11/10/2020 12:00:00 AM EST completed [facility] Vaccine Series Complete: YESThis Data wa s Submitted to [facility] Via [employer]. Pfizer-Sars-(Covid-19) vaccine, mRNA, LNP-S, PF, 30 mc g/ 0.3 mL 11/09/2020 11:00:00 PM EST completed [facility] COVID-19 VACCINE Pfizer 10/20/2020 12:00:00 AM EST completed [facility] Vaccine Series Complete: NOThis Data was Submitted to [facility] Via [employer]. Pfizer-Sars-(Covid-19) vaccine, mRNA, LNP-S, PF, 30 mc [...] Lle 06/11/2021 12:00:00 AM EDT active [facility] ([facility]) 100 mg 12/21/2020 12:00:00 AM [...] type / Coverage type Policy ID Covered green party ID Covered green party's relationship to mercado Policy [employer] Plan Information [employer]OMCO [id number] WI2 [id number] POMCO [id number] WI2 [id number] MEDICARE [id number] SP [id number] F23 Medicare Part B Medicare Primary [id number] Self [id number] Umr Commercial [id number] Self [id number] Umr [facility] Part B [id number] Family Dependent [id number] Medicare [place] Primary [id number] Self [id number] Medicare Part B Medicare Primary [id number] Self [id number] Umr[employer]Uhc[employer] Health Maintenance Organization (HMO) [id number] Family Dependent Y [id number] [employer]mr[employer] Health Maintenance Organization (HMO) [id number] Family Dependent Y [id number] MEDICARE [id number] SP [id number] F23 MEDICARE [id number] SP [id number] A [employer] [id number] Family Dependent [id number] [employer] [id number] Family Dependent [id number] [employer] [id number] Family Dependent [id number] [employer] [id number] Family Dependent MEDICARE C [id number] S [id number] A [employer] PPO O [id number] P [id number] [employer] PPO O [id number] P [id number] r Commercial [id number] Family Dependent [id number] [facility] [id number] [facility] [id number] R O [id number] S [id number] MEDICARE C [id number] S [id number] [id number] Problems, Conditions, and Diagnoses No Information Surgeries/Procedures Procedure Description Date Indications Data Source(s) OFFICE OUTPATIENT VISIT 25 MINUTES 06/11/2021 12:00:00 AM EDT [facility] ([facility] OFFICE OUTPATIENT VISIT 25 MINUTES 03/11/2021 12:00:00 AM EDT [facility] ([facility] ) PHYSICIAN TELEPHONE EVALUATION 11-20 MIN 12/05/2020 12 :00:00 AM EDT [facility] ([facility] Magnetic Resonance Angiography Neck W/O And Then With Contra st ML 08/30/2020 12:00:00 AM EST [facility] ([facility] Magnetic Resonance Angiography Neck W/O And Then With Contra st ML 08/30/2020 12:00:00 AM EST [facility] ([facility] FALLS RISK ASSESSMENT DOCUMENTED 08/07/2020 12:00:00 A M EST [facility] ([facility] FALLS RISK ASSESSMENT DOCUMENTED 05/24/2020 12:00:00 A M EDT [facility] ([facility] MRI BRAIN BRAIN STEM W/O CONTRAST MATERIAL 05/18/2020 12:00:00 AM EDT [facility] ([facility] MRI BRAIN BRAIN STEM W/O CONTRAST MATERIAL 05/18/2020 12:00:00 AM EDT [facility] ([facility] MRI SPINAL CANAL LUMBAR W/O CONTRAST MATERIAL 05/18/20 20 12:00:00 AM EDT [facility] ([facility] MRI SPINAL CANAL LUMBAR W/O CONTRAST MATERIAL 05/18/20 20 12:00:00 AM EDT [facility] ([facility] FALLS RISK ASSESSMENT DOCUMENTED 05/07/2020 12:00:00 A M EDT [facility] ([facility] Results ID Date Data Source [id number] 02/14/2021 09:43:00 AM EDT [facility] ([facility] [...] [facility] ID Date Data Source [id number] 02/14/2021 09:43:00 AM EDT [facility] ([facility] Briseno [...] Little GFR Left</content>
<content>ESRD GFR <15 on DIRECTOR OF OCCUPATIONAL THERAPY</content>
<content></content> Potassium Serum 4.1 meq/L 3.5-5.1 [facility] [...] [facility] ID Date Data Source [id number] 02/14/2021 09:43:00 AM EDT [facility] ([facility] Name Value Range Interpretation Code Description Data Carmita rce(s) Supporting Document(s) White Blood Count 7.3 [...] 10 150-450 [facility] ([facility] [place] % 13.9 % 2.0-8.0 [facility] (Chloe castro [...] 10 0.0-0.5 [facility] ([facility] [place] # 1.0 10 0.0-0.8 [facility] ([facility] ID Date Data Source [id number] 02/14/2021 09:43:00 AM EDT [facility] ([facility] Name Value Range Interpretation Code Description Data [facility] Supporting Document(s) Carbamazepine [Mass/volume] in Serum or Plasma 7.5 UG/ML 4.0-10.0 [facility] ID Date Data Source [id number] 05/28/2020 11:15:00 AM EDT [facility] Name Value Range Interpretation Code Description Data [facility](s) Supporting Document(s) Laboratory test finding (navigational concept) Laboratory test result [facility] ([facility]) . Interpretive Result Table INTERPRETIVE RESULT: Negative TEST: NOTCH3 TECHNICAL RESULT: No abnormal variants detected CLINICAL RELEVANCE: See Limitations of Analysis Laboratory test finding (navigational concept) Laboratory test result [facility] ([facility]) . NEGATIVE This test did not identify any variants associated with cerebral autosomal dominant arteriopathy with subcortical infarcts and leukoencephalopathy (CADASIL). Laboratory test finding (navigational concept) Laboratory [facility] . 1. Krissy Mac et al. (2013) J Clin Aria rosci 20: 322-3. (PMID: 42698424) 2. LEONARD Faith, et al. (2013) J Chin Med Assoc 76: 319-24. (PMID: 23125806) 3. Melida Laboy et al. (2009) Bra in 132: 1601-12. (PMID: 27593031) 4. Edison S, et al. (2009) Brain 132: 9 33-9. (PMID: 63077987) 5. Mike Albright et al. (2013) J Clin A esthet Dermatol 6: 29-33. (PMID: 87261552) 6. Anders Maya, et al. (2012) PLoS One 7: e 11586. (PMID: 75459010) This test was developed and its analytical performance characteristics have been determined by [facility]. It has not been cleared or approved by the U.S. Food and Drug Administration. This assay has been validated pursuant to the CLIA regulations and is used for clinical purposes. Performed at: - [facility] [address] [id number] Lag Screwer: Rajan Jeronimo PhD, Phone: [phone] Laboratory test finding (navigational concept) Laboratory test [...] caused by pathogenic variants in this gene. [facility] recommends additional testing, if not already performed, based on this individual's clinical presentation and family history. Please contact the [facility] Client Services Department or visit [employer] for information regarding additional testing. Background information: [...] EGF motifs. NOTCH3 gene information: NEY ID: *[id number]; Chromosome Location: 19p13.12; NCBI Reference Sequence: [id number]; In the cDNA, the initiator codon, ATG (methionine), is designated as codon number 1 and the "A" is designated as nucleotide +1. The initiator codon is located in exon 1 and all subsequent numbering is sequential. 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 DNA sequencing [...] are difficult to sequence using advanced sequencing, [place] sequencing of PCR-amplified target regions (using bi-directional [...] variant(s) identified reflect the current state of [facility]' understanding at the time of this report. [...] or our [facility] Program, please call [facility] at [phone] to speak to a genetic couns elor or laboratory manager, or visit [email or web address]. Procedure Social History Code Duration Value Status Description Data Source(s ) Smoking 07/30/2020 12:00:00 AM EST Patient is a former smoker completed Patient is a former smoker [facility] ([facility] Vital Signs ID Date Data Source UNK Name Value Range Interpretation Code Description Data Source(s) Systolic blood pressure 110 mm[Hg] 110 mm[Hg] M [facility] ([facility] Lue Diastolic blood pressure 60 mm[Hg] 60 mm[Hg] [facility] ([facility] Lue Systolic blood pressure 138 mm[Hg] 138 mm[Hg] M LORENA ([facility] ) Rue Diastolic blood pressure 60 mm[Hg] 60 mm[Hg] [facility] ([facility] ) Rue Heart rate 60 /min 60 /min [facility] ([facility], ) Respiratory rate 16 /min 16 /min [facility] ( [facility], ) Diastolic blood pressure 60 mm[Hg] 60 mm[Hg] [facility] ([facility], ) Heart rate 64 /min 64 /min [facility] ([facility], ) Respiratory [...] 97 % [facility] ([facility] [place] body weight 142 [lb_av] 142 [lb_av] MEDEN [...] rate 20 /min 20 /min [facility] ( [facility]) Respiratory rate 18 /min 18 /min [facility] ( [facility] Heart rate 59 /min 59 /min [facility] ([facility] Body temperature 97.5 [degF] 97.5 [degF] [facility] ([facility] Body mass index (BMI) [Ratio] 28.2 kg/m2 28.2 k g/m2 [facility] ([facility] Systolic blood pressure 157 mm[Hg] 157 mm[Hg] [facility] recheck Diastolic blood pressure 61 mm[Hg] 61 mm[Hg] [facility] ([facility] recheck Body height 66 [in_i] 66 [in_i] [facility] ([facility] 5'6" Body weight 174.50 [lb_av] 174.50 [lb_av] MED[facility] T ([facility] [place] body weight 142 [lb_av] 142 [lb_av] [facility] T ([facility] Systolic blood pressure 185 mm[Hg] 185 mm[Hg] M [facility] ([facility] Diastolic blood pressure 59 mm[Hg] 59 mm[Hg] [facility] ([facility] Body temperature 97.2 [degF] 97.2 [degF] [facility] ([facility] Body height 66 [in_i] 66 [in_i] [facility] ([facility] 5'6" [place] body weight 142 [lb_av] 142 [lb_av] MEDEN [...] [in_i] [facility] ([facility] 5'6" [place] body weight 142 [lb_av] 142 [lb_av] MED[facility] T ([facility] Body mass index (BMI) [Ratio] 29.2 kg/m2 29.2 k g/m2 [facility] ([facility] Heart rate 64 /min 64 /min [facility] ([facility] Respiratory rate 16 /min 16 /min [facility] ( [facility] ) Systolic blood pressure 138 mm[Hg] 138 mm[Hg] M [facility] ([facility] ) Diastolic blood pressure 80 mm[Hg] 80 mm[Hg] [facility] ([facility] Heart rate 72 /min 72 /min [facility] ([facility] ) Respiratory rate 16 /min 16 /min [facility] ( [facility] ) Systolic blood pressure 140 mm[Hg] 140 mm[Hg] M [facility] ([facility] ) Diastolic blood pressure 80 mm[Hg] 80 mm[Hg] [facility] ([facility] )
[2021-07-04] MEDS ORDERED: ACETAMINOPHEN TAB 650MG DOSE (2X325MG) PO PRN (11:20)
--- OUTSIDE RECORDS SUMMARY | 2021-07-04 11:29 | CCD ---
Author Author [facility] Organization [facility] Address Unknown Phone Unavailable Care Team Providers Care Duty Engineer Name Role Phone Trickey, J Helene PA [...] is protected by Article 27-F of the [facility] Public Health law. If you continue you may have access to information: Regarding HIV / AIDS; Provided by facilities licensed or operated by the [facility] Office of Mental Health; or Provided by the [facility] Office for People With Developmental Disabilities. If such information is present, then the following [facility] mandated warning applies: This information has been [...] law may result in a fine or alf sentence or both. A general authorization for [...] Data Source(s ) Outpatient Attender: Helene Santo [facility] 06/11/2021 08:30:00 AM EDT [facility] ([facility]) Outpatient Attender: Helene ESCOBAR [facility] 03/11/2021 09:00:00 AM EDT [facility] ([facility]) Outpatient Attender: Chloe Briseno MD Main Office 01/30/2021 08:00:0 0 AM EDT [facility] ([facility] Office Visit Attender: Helene ESCOBAR [facility] 12/05/2020 08:00:00 AM EDT [facility] ([facility]) Outpatient Attender: Helene ESCOBAR [facility] 08/07/2020 07:00:00 AM EST [facility] ([facility]) Outpatient Attender: Chloe Briseno MD Main Office 07/30/2020 07:30:0 0 AM EST [facility] ([facility] Outpatient Attender: Chloe Briseno MD Main Office 05/28/2020 10:00:0 0 AM EDT [facility] ([facility] Outpatient Attender: Helene ESCOBAR [facility] 05/24/2020 09:00:00 AM EDT [facility] ([facility]) Outpatient Attender: Helene ESCOBAR Main office - [facility] 05/07/2020 08:00:00 AM EDT [facility] ([facility]) Immunizations Vaccine Date Status Description Data Source(s) COVID-19 VACCINE Pfizer 11/10/2020 12:00:00 AM EST completed [facility]SIIS Vaccine Series Complete: YESThis Data wa s Submitted to [facility]. Pfizer-Sars-(Covid-19) vaccine, mRNA, LNP-S, PF, 30 mc g/ 0.3 mL 11/09/2020 11:00:00 PM EST completed [facility] COVID-19 VACCINE Pfizer 10/20/2020 12:00:00 AM EST completed [facility]SIIS Vaccine Series Complete: NOThis Data was Submitted to [facility]. Pfizer-Sars-(Covid-19) vaccine, mRNA, LNP-S, PF, 30 mc [...] Lle 06/11/2021 12:00:00 AM EDT active [facility] ([facility]) 100 mg 12/21/2020 12:00:00 [...] to mercado Policy Mercado Plan Information [employer]OM[employer] [id number] WI2 [id number] [employer] [id number] WI2 [id number] MEDICARE [id number] SP [id number] F23 Medicare Part B Medicare Primary [id number] Self [id number] Umr Commercial [id number] Self [id number] Umr [facility] Part B [id number] Family Dependent [id number] Medicare [place] Primary [id number] Self [id number] Medicare Part B Medicare Primary [id number] Self [id number] Umr/Uhc/[employer] Health Maintenance Organization (HMO) [id number] Family Dependent Y [id number] Umr/Uhc[employer] Health Maintenance Organization (HMO) [id number] Family Dependent Y [id number] MEDICARE [id number] SP [id number] F23 MEDICARE [id number] SP [id number] A [employer] Commercial [id number] Family Dependent [id number] [employer] Commercial [id number] Family Dependent [id number] [employer] Commercial [id number] Family Dependent [id number] [employer] Commercial [id number] Family Dependent MEDICARE C [id number] S [id number] A [employer] PPO O [id number] P [id number] [employer] PPO O [id number] P [id number] r Commercial [id number] Family Dependent [id number] [facility] [id number] [facility] [id number] R O [id number] S [id number] MEDICARE C [id number] S [id number] [id number] Problems, Conditions, and Diagnoses No Information Surgeries/Procedures Procedure Description Date Indications Data Source(s) OFFICE OUTPATIENT VISIT 25 MINUTES 06/11/2021 12:00:00 AM EDT [facility] ([facility] OFFICE OUTPATIENT VISIT 25 MINUTES 03/11/2021 12:00:00 AM EDT [facility] ([facility] PHYSICIAN TELEPHONE EVALUATION 11-20 MIN 12/05/2020 12 :00:00 AM EDT [facility] ([facility] Magnetic Resonance Angiography Neck W/O And Then With Contra st ML 08/30/2020 12:00:00 AM EST [facility] ([facility] Magnetic Resonance Angiography Neck W/O And Then With Contra st ML 08/30/2020 12:00:00 AM EST [facility] ([facility] FALLS RISK ASSESSMENT DOCUMENTED 08/07/2020 12:00:00 A M EST [facility] ([facility] FALLS RISK ASSESSMENT DOCUMENTED 05/24/2020 12:00:00 A M EDT [facility] ([facility] MRI BRAIN BRAIN STEM W/O CONTRAST MATERIAL 05/18/2020 12:00:00 AM EDT [facility] ([facility] MRI BRAIN BRAIN STEM W/O CONTRAST MATERIAL 05/18/2020 12:00:00 AM EDT [facility] ([facility] MRI SPINAL CANAL LUMBAR W/O CONTRAST MATERIAL 05/18/20 20 12:00:00 AM EDT [facility] ([facility] MRI SPINAL CANAL LUMBAR W/O CONTRAST MATERIAL 05/18/20 20 12:00:00 AM EDT [facility] ([facility] FALLS RISK ASSESSMENT DOCUMENTED 05/07/2020 12:00:00 A M EDT [facility] ([facility] Results ID Date Data Source [id number] 02/14/2021 09:43:00 AM EDT [facility] ([facility] Name Value Range Interpretation Code Description Data Carmita rce(s) Supporting Document(s) Triglycerides Level 377 mg/dL [facility] ([facility] Cholesterol Level 199 mg/dL [facility] ([facility] HDL Cholesterol 36 mg/dL [facility] ([facility] Cholesterol Risk Ratio 5.527 [facility] ([facility] Non-HDL-C 163 mg/dL [facility] LDL Cholesterol 88 mg/dL [facility] ID Date Data Source [id number] 02/14/2021 09:43:00 AM EDT [facility] ([facility] [...] Little GFR Left</content>
<content>ESRD GFR <15 on STEELSCOPE OPERATOR</content>
<content></content> Potassium Serum 4.1 meq/L 3.5-5.1 [facility] [...] [facility] ID Date Data Source [id number] 02/14/2021 09:43:00 AM EDT [facility] ([facility] [...] 10 150-450 [facility] ([facility] [place] % 13.9 % 2.0-8.0 [facility] ([facility] [...] 10 0.0-0.5 [facility] [place] # 1.0 10 0.0-0.8 [facility] ([facility] ID Date Data Source [id number] 02/14/2021 09:43:00 AM EDT [facility] ([facility] Name Value Range Interpretation Code Description Data [facility] Supporting Document(s) Carbamazepine [Mass/volume] in Serum or Plasma 7.5 UG/ML 4.0-10.0 [facility] ID Date Data Source [id number] 05/28/2020 11:15:00 AM EDT [facility] Name Value Range Interpretation Code Description Data Carmita [facility](s) Supporting Document(s) Laboratory test finding (navigational [...] test finding (navigational concept) Laboratory test result [facility]) . 1. Krissy Mac et al. (2013) J Clin Aria rosci 20: 322-3. (PMID: 88155106) 2. LEONARD Faith, et al. (2013) J Chin Med Assoc 76: 319-24. (PMID: 36624506) 3. Melida Laboy et al. (2009) Bra in 132: 1601-12. (PMID: 59113525) 4. Edison S, et al. (2009) Brain 132: 9 33-9. (PMID: 91865784) 5. Mike Albright et al. (2013) J Clin A esthet Dermatol 6: 29-33. (PMID: 04805787) 6. Anders Maya, et al. (2012) PLoS One 7: e 93457. (PMID: 35672237) This test was developed and its analytical performance characteristics have been determined by [facility]. It has not been cleared or approved by the U.S. Food and Drug Administration. This assay has been validated pursuant to the CLIA regulations and is used for clinical purposes. Performed at: - [facility] [address] [id number] Lamp Inspector: Rajan Jeronimo PhD, Phone: [phone] Laboratory test finding (navigational concept) Laboratory test result [facility] ([facility] ) . Comments: While this analysis [...] caused by pathogenic variants in this gene. [facility] recommends additional testing, if not already performed, based on this individual's clinical presentation and family history. Please contact the [facility] Client Services Department or visit [facility] for information regarding additional testing. Background information: [...] EGF motifs. NOTCH3 gene information: NEY ID: *[id number]; Chromosome Location: 19p13.12; NCBI Reference Sequence: [id number]; In the cDNA, the initiator codon, ATG (methionine), is designated as codon number 1 and the "A" is designated as nucleotide +1. The initiator codon is located in exon 1 and all subsequent numbering is sequential. 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 DNA sequencing was performed [...] are difficult to sequence using advanced sequencing, [place] sequencing of PCR-amplified target regions (using bi-directional [...] variant(s) identified reflect the current state of [facility]' understanding at the time of this report. [...] or our Family [facility] Program, please call [facility] at [phone] to speak to a genetic couns elor or denture laboratory technician, or visit [email or web address]. Procedure Social History Code Duration Value Status Description Data Source(s ) Smoking 07/30/2020 12:00:00 AM EST Patient is a former smoker completed Patient is a former smoker [facility] ([facility] Vital Signs ID Date Data Source UNK Name Value Range Interpretation Code Description Data Source(s) Respiratory rate 16 /min 16 /min [facility] ( [facility] ) Systolic blood pressure 110 mm[Hg] 110 mm[Hg] M [facility] ([facility] ) Lue Diastolic blood pressure 60 mm[Hg] 60 mm[Hg] [facility] ([facility] ) Lue Systolic blood pressure 138 mm[Hg] 138 mm[Hg] M [facility] ([facility], ) Rue Diastolic blood pressure 60 mm[Hg] 60 mm[Hg] [facility] ([facility] ) Rue Heart rate 60 /min 60 /min [facility] ([facility] ) Diastolic blood pressure 60 mm[Hg] 60 mm[Hg] [facility] ([facility] ) Heart rate 64 /min 64 /min [facility] ([facility]) Respiratory rate 16 /min 16 /min [facility] ( [facility]) Systolic blood pressure 120 mm[Hg] 120 mm[Hg] M [facility] ([facility] ) Respiratory rate 16 /min 16 [...] Systolic blood pressure 155 mm[Hg] 155 mm[Hg] [facility] recheck Diastolic blood pressure 57 mm[Hg] 57 mm[Hg] [facility] ([facility] recheck Body temperature 97.6 [degF] 97.6 [degF] [facility] ([facility] Body weight 190.12 [lb_av] 190.12 [lb_av] MEDEN T ([facility] Oxygen saturation in Arterial blood by Pulse oximetry 97 % 97 % [facility] ([facility] [place] body weight 142 [lb_av] 142 [lb_av] MED[facility] T ([facility] Body mass index (BMI) [Ratio] 30.7 kg/m2 30.7 k g/m2 [facility] ([facility] Systolic blood pressure 140 mm[Hg] 140 mm[Hg] M [facility] ([facility] ) Rue Diastolic blood pressure 78 mm[Hg] 78 mm[Hg] [facility] ([facility] ) Rue Systolic blood pressure 110 mm[Hg] 110 mm[Hg] M [facility] ([facility], ) Lue Diastolic blood pressure 60 mm[Hg] 60 mm[Hg] [facility] ([facility] ) Lue Heart rate 68 /min 68 /min [facility] ([facility] ) Respiratory rate 20 /min 20 /min [facility] ( [facility] ) Respiratory rate 18 /min 18 [...] [lb_av] MED[facility] T ([facility] [place] body weight 142 [lb_av] 142 [lb_av] [facility] T ([facility] Systolic blood pressure 185 mm[Hg] 185 mm[Hg] M [facility] ([facility] Diastolic blood pressure 59 mm[Hg] 59 mm[Hg] [facility] Body temperature 97.2 [degF] 97.2 [degF] [facility] Body height 66 [in_i] 66 [in_i] [facility] 5'6" [place] body weight 142 [lb_av] 142 [lb_av] MEDEN [...] [in_i] [facility] ([facility] 5'6" [place] body weight 142 [lb_av] 142 [lb_av] [facility] T ([facility] Body weight 181.12 [lb_av] 181.12 [lb_av] [facility] T ([facility] Oxygen saturation in Arterial blood by Pulse oximetry 99 % 99 % [facility] ([facility] Body mass index (BMI) [Ratio] 29.2 kg/m2 29.2 k g/m2 [facility] ([facility] Heart rate 64 /min 64 /min [facility] ([facility] ) Respiratory rate 16 /min 16 /min [facility] ( [facility] ) Systolic blood pressure 138 mm[Hg] 138 mm[Hg] M [facility] ([facility] ) Diastolic blood pressure 80 mm[Hg] 80 mm[Hg] [facility] ([facility] ) Heart rate 72 /min 72 /min [facility] ([facility] ) Respiratory rate 16 /min 16 /min [facility] ( [facility] ) Systolic blood pressure 140 mm[Hg] 140 mm[Hg] M [facility] ([facility] ) Diastolic blood pressure 80 mm[Hg] 80 mm[Hg] [facility] ([facility] )
[2021-07-04] MEDS ORDERED: E-Z-HD 98% w/w 340GM SUSP BTL As Ordered ONE (13:39)
[2021-07-04] MEDS ORDERED: E-Z-GAS II EFFERVESCENT PACKET (SODIUM BICARB./CITRIC ACID/SIMETHICONE) As Ordered ONE (13:39)
[2021-07-04] MEDS ORDERED: E-Z-PAQUE 96% w/w SUSP 176GM BTL As Ordered ONE (13:39)
[2021-07-04] MEDS ORDERED: PILL CUTTER 1 EACH XX PRN (14:35)
[2021-07-04] MEDS ORDERED: MED NOTE (14:39)
[2021-07-04] MEDS ORDERED: GABA-1171 PO (14:39)
--- NOTE | 2021-07-04 16:23 | REP ---
INDICATION: sob. COMPARISON: None. TECHNIQUE: This procedure was performed under the direct supervision of Dr. Lobo. Images were reviewed with Dr. Lobo. The exam is limited due to patient condition. Liquid barium was administered and the right and left lateral recumbent positions. 0.9 minutes of fluoro time was utilized for this procedure. FINDINGS: During the oral and pharyngeal stages of deglutition there is laryngeal penetration identified. Esophageal transport is prompt and efficient in there is no evidence of esophagitis stricture mucosal ring or hiatal hernia. Gastroesophageal reflux is not demonstrated on this examination. IMPRESSION: There is laryngeal penetration. Otherwise, single-contrast esophagram within normal limits. <Electronically signed by Lanre Harvey > 07/04/21 1602 <Electronically signed by Luis Lobo > 07/04/21 0049
[2021-07-04] MEDS: ASPIRIN 81MG ENTERIC TABLET PO SCH (16:47)
[2021-07-04] MEDS: ATORVASTATIN 10 MG TAB PO SCH (16:47)
[2021-07-04] MEDS: amLODIPine 5 MG TAB PO SCH (16:48)
[2021-07-04] MEDS: CLOPIDOGREL 75 MG TAB PO SCH (16:48)
[2021-07-04] MEDS: METOPROLOL SUCC (TopROL XL) 100MG *XL* TAB PO SCH (16:49)
[2021-07-04] MEDS: CETIRIZINE (ZyrTEC) 10 MG TAB PO SCH (16:49)
--- NOTE | 2021-07-04 16:57 | HPEPDOC ---
[facility] Medical History & Physical Date of Admission Jul 04, 2021 Date of Service: Jul 04, 2021 Attending Physician: PAVEL RODARTE MD History and Physical CHIEF COMPLAINT: Aspiration pneumonia, shortness of breath HISTORY OF PRESENT ILLNESS: Was obtained through patient's , Chana ([id number]) She stated that beginning around 730 last night, Juan started coughing and spitting up phlegm. He then went to bed and then woke up around midnight and was coughing very uncomfortable. He then started to vomit phlegm and what appeared to be dark brown clots (does not believe it was blood) and then went back to sleep. 30 minutes later, patient started vomiting phlegm again. At this point will Chana helped her get down the stairs to a bed they had on the lower floor. She noted that he needed more help with the stairs which was not normal. When she was able to get him in bed, he vomited again and also lost control of his bladder. She also noted that he was unable to move himself (set up in bed by himself), and use legs. She called 911 when she could not understand his speech. She states the last time he was normal was approximately 0030. Patient has a history of 2 major strokes per . 1st one was 15 years ago. Patient presented to [facility] after a fall and losing consciousness. He was not acting right and his brought him to the ER but was subsequently yesenia ared. 15 days later patient complained of pain around the right eye and unable to see out of it. They went to a vision center where they were told he had signs of CVA. A 2nd stroke was 5 to 6 years ago and presented with a funny feeling in his right leg. PAST MEDICAL HISTORY: 1. History of several TIAs. 2. CVA x2. 3. History of trigeminal neuralgia 4. Hyperlipidemia 5. Hypertension 6. Glaucoma PAST SURGICAL HISTORY: 1. None SOCIAL HISTORY: Marital status: . 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 in late 70s ALLERGIES: Please see below. REVIEW OF SYSTEMS: Not able to be obtained from patient due to current status. Will attempt at later time. GASTROINTESTINAL: Reports vomiting. GENITOURINARY: Reports loss of bladder control. MUSCULOSKELETAL: Reports loss of muscle functions. NEUROLOGICAL: Reports slurred speech. HOME MEDICATIONS: Please see below. PHYSICAL EXAMINATION: VITAL SIGNS: Temperature 98.4, pulse 85, respiratory rate 18, blood pressure 146/67, pulse oximetry 97% on room air. GENERAL APPEARANCE: 81-year-old male, lying in bed in ER, no acute distress. HEENT: Head normocephalic/atraumatic; lateral diplopia in the right eye. CARDIOVASCULAR: Mitral insufficiency auscultated, regular rate and rhythm. RESPIRATORY: Clear to auscultation bilaterally, no wheezes, no crackles, no rhonchi GASTROINTESTINAL: Normoactive bowel sounds throughout, nontender to palpation, no rebound tenderness or guarding. MUSCULOSKELETAL: 5 out of 5 in upper extremities, gait not tested because fall risk. PSYCHIATRIC: Patient does not recall why he was brought to the hospital and is not alert and oriented LABORATORY DATA: See below. IMAGING: CT angio 07/04/2021: No acute pulmonary embolic disease. 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 Extensive bilateral dependent and compressve atelectasis more pronounced on the right. Atelectasis or scarring in the right middle lobe and lingula. Mildly distended fluid-filled esophagus. Suspect gastroesophageal reflux. Chest x-ray 07/04/2021: Lungs: Low lung volumes with crowding of the bronchovascular markings and bibasilar atelectasis. No consolidation. Pleural spaces: No significant pleural effusions. No pneumothorax. Heart/Mediastinum: Borderline heart size which appears accentuated by low lung volumes. Tortuous and atherosclerotic thoracic aorta. Bones/joints: Bones are stable. Degenerative changes. Old right rib deformity. MICROBIOLOGY: Please see below. ASSESSMENT: Patient is an 81-year-old male who was admitted to inpatient service after period of nausea and vomiting out of concern for aspir ation pneumonia versus pneumonitis. Patient also experienced strokelike symptoms per and an MRI has been ordered for further evaluation. PLAN: Aspiration pneumonitis versus pneumonia due to reported frequency of nausea and vomiting and fluid-filled esophagus seen on CT angiogram -Bedside swallow evaluation -Barium esophagram swallow -Aspiration precaution -IV Rocephin -Multiple blood cultures pending -Respiratory viral panel negative CVA Patient's reported symptoms concerning for possible CVA (see HPI) -Brain MRI without contrast -Has history of at least 2 strokes and multiple TIAs -Continue Plavix Dyslipidemia -Continue lovastatin Hypertension -Continue amlodipine, hydrochlorothiazide, metoprolol succinate, and aspirin Trigeminal neuralgia: -Continue carbamazepine and gabapentin Glaucoma -Continue latanoprost eyedrops from home DVT prophylaxis -Teds and sequentials Vital Signs Vital Signs Date Time Temp Pulse Resp B/P (MAP) Pulse Ox O2 Delivery O2 Flow Rate FiO2 07/04/21 10:15 85 18 146/67 (93) 97 Nasal Cannula 2.0 07/04/21 08:46 98.4 Laboratory Data Labs 24H Laboratory Tests 2 07/04/21 05:00: Immature Granulocyte % (Auto) 0.5, Neutrophils (%) (Auto) 87.1H, Lymphocytes (%) (Auto) 5.6L, Monocytes (%) (Auto) 6.6, Eosinophils (%) (Auto) 0.0, Basophils (%) (Auto) 0.2, Neutrophils # (Auto) 19.4H, Lymphocytes # (Auto) 1.2L, Monocytes # (Auto) 1.5H, Eosinophils # (Auto) 0.0, Basophils # (Auto) 0.1, Nucleated Red Blood Cells % (auto) 0.0, Anion Gap 5L, Glomerular Filtration Rate 54.5, Calcium Level 9.6, Magnesium Level 1.8, Total Bilirubin 0.8, Aspartate Amino Transf (AST/SGOT) 26, Alanine Aminotransferase (ALT/SGPT) 25, Alkaline Phosphatase 124H, Total Creatine Kinase 107, Creatine Kinase MB 1.5, Creatine Kinase MB Relative Index 1.40, Troponin I < 0.02, Total Protein 7.3, Albumin 3.6, Albumin/Globulin Ratio 1.0 07/04/21 05:04: POC Glucose (Misc Panel) 161H, POC Sodium (Misc Panel) 142, POC Potassium (Misc Panel) 4.3, POC Chloride (Misc Panel) 98, POC Total CO2 (Misc Panel) 30.0H, POC Blood Urea Nitrogen (Misc Panel 19, POC Ionized Calcium (Misc Panel) 4.8, POC Creatinine (Misc Panel) 1.2, POC Hematocrit (Misc Panel) 52.0H CBC/BMP Laboratory Tests 07/04/21 05:00 Microbiology Microbiology 07/04/21 Blood Culture, Received Pending 07/04/21 Blood Culture, Received Pending 07/04/21 Blood Culture, Received Pending 07/04/21 Respiratory Virus Panel (PCR) ([facility]) - Final, Complete 07/04/21 Blood Culture, Received Pending Home Medications Scheduled Amlodipine Besylate (Amlodipine Besylate) 5 Mg Tab, 5 MG PO DAILY Aspirin (Ecotrin) 81 Mg Tablet.dr, 81 MG PO DAILY Atorvastatin Calcium (Atorvastatin Calcium) 10 Mg Tab, 10 MG PO DAILY Carbamazepine (Carbamazepine ER) 100 Mg Tab.er.12h, 200 MG PO BID Cetirizine HCl (Cetirizine HCl) 5 Mg Tablet, 5 MG PO DAILY GIVEN AROUND 1600 Clopidogrel Bisulfate (Clopidogrel) 75 Mg Tab, 75 MG PO DAILY Gabapentin (Gabapentin) 400 Mg Capsule, 400 MG PO BID TAKE WITH 100MG. @ 0730, @ 1930 Gabapentin (Gabapentin) 100 Mg Capsule, 100 MG PO BID TAKE WITH 400MG Hydrochlorothiazide (Hydrochlorothiazide) 25 Mg Tablet, 25 MG PO DAILY Metoprolol Succinate (Metoprolol Succinate) 100 Mg Tab.er.24h, 100 MG PO DAILY Multivitamin (Multi-Vitamin Daily) 1 Tab Tab, 1 TAB PO DAILY Travoprost (Travatan Z) 50 Drop/2.5 Ml Soln, 1 DROP OU QHS Miscellaneous Medications [Med Note] DR IS WRITING NEW RX FOR GABAPENTIN 600MG, PT HAS NOT PICKED UP YET STATED FROM . Allergies Coded Allergies: No Known Allergies (Unverified , 06/12/15) GME ATTESTATION GME ATTESTATION My faculty preceptor for this patient encounter was physically present during the encounter and was fully available. All aspects of the patient interview, examination, medical decision making process, and medical care plan development were reviewed and approved by the faculty preceptor. The faculty preceptor is aware and concurs with the plan as stated in the body of this note and will a ttest to such by his/her cosignature. Perico Allen DO Jul 04, 2021 16:57
[2021-07-04 18:55] VITALS: BP 161/70
[2021-07-04 20:00] VITALS: BP 135/61
--- NOTE | 2021-07-04 20:21 | REPVR ---
PROCEDURE INFORMATION: Exam: MR Head Without Contrast Exam date and time: 07/04/2021 5:23 PM Age: 81 years old Clinical indication: Altered mental status/memory loss and speech disturbance; Confusion or disorientation; Slurred speech; Patient HX: Hxs of tias/cvas; Additional info: Possible stroke TECHNIQUE: Imaging protocol: MR of the head without contrast. COMPARISON: CT Head without contrast 11/12/2019 12:02 AM FINDINGS: Age-related volume loss. Major vascular flow voids at the skull base are preserved. No extra-axial fluid collection. Moderate to severe volume loss. Non-specific white matter gliosis, probable chronic microvascular ischemia. No midline shift or significant intracranial mass effect. No cerebral edema. There are foci of T2 shine through without true diffusion restriction. Minimal paranasal sinus disease. No significant mastoid effusion. IMPRESSION: No acute intracranial abnormality. Electronically signed by: Jose Francisco On 07/04/2021 20:21:09 PM
[2021-07-04] MEDS: GABAPENTIN 100 MG CAP PO SCH (20:52)
[2021-07-04] MEDS: carBAMazepine XR 200 MG TAB PO SCH (20:52)
[2021-07-04] MEDS: LATANOPROST 0.005% OPHTH SOLN 2.5 ML OU SCH (23:22)
[2021-07-05] VITALS (17 sets, daily range): BP systolic 121–148; BP diastolic 58–69; O2SAT 95–99
[2021-07-05] MEDS: cefTRIAXone SOD 1 GM in D5W MINI-BAG PLUS 50 ML IV SCH (05:22)
[2021-07-05 06:32] LABS: HEMATOCRIT 41.8 % (42.0-52.0); MEAN CORPUSCULAR HEMOGLOBIN 31.7 pg (27.0-33.0); MEAN CORPUSCULAR HGB CONC 32.1 g/dl (32.0-36.5); MEAN CORPUSCULAR VOLUME 98.8 fl (80.0-96.0); PLATELET COUNT, AUTOMATED 145 10^3/uL (150-450); RED BLOOD COUNT 4.23 10^6/uL (4.30-6.10); WHITE BLOOD COUNT 15.1 10^3/uL (4.0-10.0)
[2021-07-05 06:36] LABS: HEMOGLOBIN 13.4 g/dl (13.5-17.5)
[2021-07-05 06:47] LABS: BLOOD UREA NITROGEN 19 MG/DL (7-18); CALCIUM LEVEL 8.6 MG/DL (8.8-10.2); CARBON DIOXIDE LEVEL 31 MEQ/L (21-32); CHLORIDE LEVEL 105 MEQ/L (98-107); CREATININE FOR GFR 1.02 MG/DL (0.70-1.30); GLOMERULAR FILTRATION RATE > 60.0 (>35); GLUCOSE, FASTING 106 MG/DL (70-100); MAGNESIUM LEVEL 2.1 MG/DL (1.8-2.4); POTASSIUM SERUM 4.1 MEQ/L (3.5-5.1); SODIUM LEVEL 140 MEQ/L (136-145)
--- NOTE | 2021-07-05 07:57 | REP ---
INDICATION: sob COMPARISON: 07/04/2021 TECHNIQUE: Portable AP view of the chest FINDINGS: The mediastinum and cardiac silhouette are stable and within normal limits for portable technique. The lung renee suggests trace basilar atelectasis without focal consolidation or effusion. No pneumothorax.. Skeletal structures are intact. IMPRESSION: Trace basilar atelectasis. <Electronically signed by Loco Gautam > 07/05/21 0757
[2021-07-05] MEDS: GABAPENTIN 100 MG CAP PO SCH ×2 (09:47→20:23)
[2021-07-05] MEDS: carBAMazepine XR 200 MG TAB PO SCH ×2 (09:47→20:23)
[2021-07-05] MEDS: ASPIRIN 81MG ENTERIC TABLET PO SCH (09:48)
[2021-07-05] MEDS: ATORVASTATIN 10 MG TAB PO SCH (09:48)
[2021-07-05] MEDS: amLODIPine 5 MG TAB PO SCH (09:48)
[2021-07-05] MEDS: CETIRIZINE (ZyrTEC) 10 MG TAB PO SCH (09:48)
[2021-07-05] MEDS: CLOPIDOGREL 75 MG TAB PO SCH (09:49)
[2021-07-05] MEDS: METOPROLOL SUCC (TopROL XL) 100MG *XL* TAB PO SCH (09:56)
--- NOTE | 2021-07-05 13:10 | IPNPDOC ---
Date Seen The patient was seen on 07/05/21. Progress Note SUBJECTIVE: Patient is an 81-year-old male with aspiration pneumonitis versus pneumonia due to nausea vomiting, who presented with symptoms concerning for CVA. MRI yesterday showed no acute intracranial abnormalities. Swallow study revealed laryngeal penetration. Interview with patient today revealed he was in no pain or overall discomfort. Clarification on CODE STATUS needs to be made. Upon admission his mentation was questionable. We consulted his who believed DNR/DNI would confer with the patient's wishes. Upon questioning patient yesterday when mentation seem to h ave improved, he desired full CODE STATUS. He was made full code and he has been encouraged to discuss situation with his . He was stressed to them that we are not doing this because we expect an event to occur. We are discussing this with him to make sure that his best wishes are followed through with. Review of systems: Constitutional: Denies fever, chills HEENT: Reports hoarseness denies vision changes, ringing in ears Cardiac: Denies chest pain, palpitations Respiratory: Denies shortness of breath, pain with breathing Gastrointestinal: Denies nausea, vomiting, diarrhea Genitourinary: Denies dysuria, hematuria; patient states that he is somewhat incontinent, able to make it to the restroom if times it right Neurology: Denies headache, dizziness Psychology: Alert and oriented to person and place (could not name the president or what year it is) OBJECTIVE PHYSICAL EXAMINATION: VITAL SIGNS: Please see below. GENERAL: 81-year-old male, lying in bed propped up, no acute distress HEENT: Head normocephalic atraumatic; eyes PERRLA, bilateral cataracts, next lateral diplopia in right eye, left eye not able to track past midline to the right CARDIOVASCULAR: Mitral insufficiency auscultated but regular rate and rhythm. RESPIRATORY: Clear to auscultation bilaterally, no wheezes, crackles, rhonchi. ABDOMINAL: Normoactive bowel sounds in all 4 quadrants, nontender to palpation, no rebound tenderness or guarding EXTREMITIES: 2+ radial pulses and dorsalis pedal pulses bilaterally LABORATORY DATA, IMAGING STUDIES, MICROBIOLOGY: Please see below. Imaging: Chest x-ray 07/05/2021: Trace basilar atelectasis Esophageal barium swallow 07/04/2021: There is laryngeal penetration. Otherwise, single-contrast esophagram within normal limits. Brain MRI 07/04/2021: No acute intracranial abnormality CT angio 07/04/2021: No acute pulmonary embolic disease. 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 Extensive bilateral dependent and compressve atelectasis more pronounced on the right. Atelectasis or scarring in the right middle lobe and lingula. Mildly distended fluid-filled esophagus. Suspect gastroesophageal reflux. Chest x-ray 07/04/2021: Lungs: Low lung volumes with crowding of the bronchovascular markings and bibasilar atelectasis. No consolidation. Pleural spaces: No significant pleural effusions. No pneumothorax. Heart/Mediastinum: Borderline heart size which appears accentuated by low lung volumes. Tortuous and atherosclerotic thoracic aorta. Bones/joints: Bones are stable. Degenerative changes. Old right rib deformity. ASSESSMENT AND PLAN: This is a 81-year-old male with aspiration pneumonia versus aspiration pneumonitis. CVA has been ruled out. PROBLEMS: Aspiration pneumonitis versus pneumonia due to reported frequency of nausea and vomiting and fluid-filled esophagus seen on CT angiogram -Barium esophagram swallow showed laryngeal penetration -Aspiration precaution precautions and pured diet -Cookie swallow study to be ordered Wednesday -IV Rocephin -Multiple blood cultures pending, at the moment no growth after 24 hours -Respiratory viral panel negative CVA Patient's reported symptoms concerning for possible CVA (see HPI) -Brain MRI without contrast revealed no acute intracranial processes -Has history of at least 2 strokes and multiple TIAs -Continue Plavix Dyslipidemia -Continue lovastatin Hypertension -Continue amlodipine, hydrochlorothiazide, metoprolol succinate, and aspirin Trigeminal neuralgia: -Continue carbamazepine and gabapentin Glaucoma -Continue latanoprost eyedrops from home DVT prophylaxis -Teds and sequentials DISPOSITION: Pending clinical improvement. VS, I&O, 24H, Fishbone Vital Signs/I&O Vital Signs Date Time Temp Pulse Resp B/P (MAP) Pulse Ox O2 Delivery O2 Flow Rate FiO2 07/05/21 12:26 98.8 63 20 121/58 (79) 98 Nasal Cannula 2.0 I&O- Last 24 Hours up to 6 AM 07/05/21 06:00 Intake Total 100 ml Output Total 900 ml Balance -800 ml Laboratory Data 24H LABS Laboratory Tests 2 07/04/21 21:28: Bedside Glucose (Misc Panel) 104 07/05/21 05:46: Nucleated Red Blood Cells % (auto) 0.0, Anion Gap 4L, Glomerular Filtration Rate > 60.0, Lactic Acid Level 1.3, Calcium Level 8.6L, Magnesium Level 2.1, Procalcitonin 0.15 CBC/BMP Laboratory Tests 07/05/21 05:46 Microbiology Microbiology 07/04/21 Blood Culture, Received Pending 07/04/21 Blood Culture, Received Pending 07/04/21 Blood Culture - Preliminary, Resulted No growth after 24 hours . All specim... 07/04/21 Respiratory Virus Panel (PCR) ([facility]) - Final, Complete 07/04/21 Blood Culture - Preliminary, Resulted No growth after 24 hours . All specim... GME ATTESTATION GME ATTESTATION My faculty preceptor for this patient encounter was physically present during the encounter and was fully available. All aspects of the patient interview, examination, medical decision making process, and medical care plan development were reviewed and approved by the faculty preceptor. The faculty preceptor is aware and concurs with the plan as stated in the body of this note and will attest to such by his/her cosignature. ATTENDING NOTE I, Yaa Berumen DO, have independently examined this patient and performed my own physical exam, as well as reviewed the documentation and edited where necessary. I have discussed in detail with the resident the findings and plan of treatment as documented by the resident and edited their note. I agree with their findings and treatment plan and have edited their documentation. I will continue to follow the patient during this hospital stay. Perico Allen DO Jul 05, 2021 13:10 YAA BERUMEN DO Jul 05, 2021 17:07
[2021-07-05] MEDS: LATANOPROST 0.005% OPHTH SOLN 2.5 ML OU SCH (20:23)
[2021-07-06 06:00] VITALS: BP 132/52
[2021-07-06] MEDS: cefTRIAXone SOD 1 GM in D5W MINI-BAG PLUS 50 ML IV SCH (06:05)
[2021-07-06 07:03] LABS: HEMATOCRIT 37.8 % (42.0-52.0); HEMOGLOBIN 12.3 g/dl (13.5-17.5); MEAN CORPUSCULAR HEMOGLOBIN 31.7 pg (27.0-33.0); MEAN CORPUSCULAR HGB CONC 32.5 g/dl (32.0-36.5); MEAN CORPUSCULAR VOLUME 97.4 fl (80.0-96.0); PLATELET COUNT, AUTOMATED 134 10^3/uL (150-450); RED BLOOD COUNT 3.88 10^6/uL (4.30-6.10); WHITE BLOOD COUNT 9.5 10^3/uL (4.0-10.0)
[2021-07-06 07:36] LABS: BLOOD UREA NITROGEN 18 MG/DL (7-18); CALCIUM LEVEL 7.9 MG/DL (8.8-10.2); CARBON DIOXIDE LEVEL 32 MEQ/L (21-32); CHLORIDE LEVEL 102 MEQ/L (98-107); CREATININE FOR GFR 1.04 MG/DL (0.70-1.30); GLOMERULAR FILTRATION RATE > 60.0 (>35); GLUCOSE, FASTING 101 MG/DL (70-100); POTASSIUM SERUM 3.6 MEQ/L (3.5-5.1); SODIUM LEVEL 138 MEQ/L (136-145)
[2021-07-06] MEDS: GABAPENTIN 100 MG CAP PO SCH ×2 (08:17→21:23)
[2021-07-06] MEDS: carBAMazepine XR 200 MG TAB PO SCH ×2 (08:17→21:23)
[2021-07-06] MEDS: ASPIRIN 81MG ENTERIC TABLET PO SCH (08:17)
[2021-07-06] MEDS: CLOPIDOGREL 75 MG TAB PO SCH (08:17)
[2021-07-06] MEDS: ATORVASTATIN 10 MG TAB PO SCH (08:18)
[2021-07-06] MEDS: METOPROLOL SUCC (TopROL XL) 100MG *XL* TAB PO SCH (08:18)
[2021-07-06] MEDS: CETIRIZINE (ZyrTEC) 10 MG TAB PO SCH (08:18)
[2021-07-06] MEDS: amLODIPine 5 MG TAB PO SCH (08:19)
--- NOTE | 2021-07-06 12:43 | IPNPDOC ---
Text Note Date of Service The patient was seen on 07/06/21. NOTE Subjective: Patient is an 81-year-old male who presented with aspiration pne umonitis versus pneumonia due to nausea and vomiting. Patient also presented with symptoms that are concerning for CVA. MRI did not show any acute intracranial abnormality. Swallowing study revealed laryngeal penetration. Patient did not complain of any pain or discomfort today and was asking when he could go home. Patient was otherwise feeling well. Review of systems: General: Patient denies fevers HEENT: Patient denies headaches Cardiovascular: Patient denies chest pain Respiratory: Patient denies shortness of breath, cough GI: Patient denies abdominal pain, nausea, vomiting, diarrhea : Patient denies increased frequency or pain with urination Extremities: Patient denies swelling or pain in extremities Neurological: Patient denies numbness or tingling in legs Physical exam: Vitals: See below General: Alert and oriented male patient who was sitting in bed when I walked in. Patient had nasal cannula oxygen in place. Patient did not appear to be in any acute distress. HEENT: Normocephalic, atraumatic, moist mucous membranes. Neck: No lymphadenopathy or thyromegaly Cardiac: Regular rate and rhythm, no murmurs, normal S1, normal S2 Pulm: Clear to auscultation bilaterally. No wheezes, rhonchi, rales Abd: Nondistended, nontender to palpation, normal bowel sounds Ext: No edema bilateral lower extremities Labs: See below Imaging: No new imaging studies have been performed Assessment/plan: 81-year-old male with aspiration pneumonia versus aspiration pneumoni tis. CVA ruled out with MRI. 1. Aspiration pneumonia pneumonitis versus aspiration pneumonia due to reported frequency of nausea and vomiting and fluid-filled esophagus seen on CT. Patient had laryngeal penetration seen on barium swallow esophagram. Patient speech therapy evaluation will be performed tomorrow. Continue IV Rocephin. Blood cultures negative x24 hours. 2. Difficulty walking. Patient is reported symptoms concerning for possible CVA. MRI without contrast of the brain revealed no acute intracranial process. Patient has a history of at least 2 strokes and multiple TIAs. Continue Plavix. Patient is going to work with PT and OT. Patient has been followed up with neurology who is working up the patient's difficulty walking. 3. Dyslipidemia. Continue home medications. 4. Hypertension. Continue patient home medications. 5. Trigeminal neuralgia. Continue home medications. 6. Glaucoma. Continue eyedrops DVT Prophylaxis: Teds and sequentials Disposition: Pending clinical improvement and evaluation by physical, occupational and speech therapy Marlen SMITH, I+O Marlen SMITH I+O Laboratory Tests 07/06/21 06:45 Vital Signs Date Time Temp Pulse Resp B/P (MAP) Pulse Ox O2 Delivery O2 Flow Rate FiO2 07/06/21 10:00 2.0 07/06/21 06:00 98.3 65 18 132/52 (78) 94 07/05/21 19:59 Nasal Cannula I&O- Last 24 Hours up to 6 AM 07/06/21 06:00 Intake Total 720 ml Output Total 700 ml Balance 20 ml YAA BERUMEN DO Jul 06, 2021 12:43
[2021-07-06 14:00] VITALS: BP 148/68
[2021-07-06] MEDS: LATANOPROST 0.005% OPHTH SOLN 2.5 ML OU SCH (21:26)
[2021-07-06 22:00] VITALS: BP 130/62
[2021-07-07] MEDS: cefTRIAXone SOD 1 GM in D5W MINI-BAG PLUS 50 ML IV SCH (05:49)
[2021-07-07 06:00] VITALS: BP 113/58
[2021-07-07 07:04] LABS: HEMATOCRIT 37.2 % (42.0-52.0); HEMOGLOBIN 12.4 g/dl (13.5-17.5); MEAN CORPUSCULAR HEMOGLOBIN 31.6 pg (27.0-33.0); MEAN CORPUSCULAR HGB CONC 33.3 g/dl (32.0-36.5); MEAN CORPUSCULAR VOLUME 94.7 fl (80.0-96.0); PLATELET COUNT, AUTOMATED 133 10^3/uL (150-450); RED BLOOD COUNT 3.93 10^6/uL (4.30-6.10); WHITE BLOOD COUNT 7.3 10^3/uL (4.0-10.0)
[2021-07-07 07:27] LABS: BLOOD UREA NITROGEN 15 MG/DL (7-18); CALCIUM LEVEL 7.9 MG/DL (8.8-10.2); CARBON DIOXIDE LEVEL 30 MEQ/L (21-32); CHLORIDE LEVEL 102 MEQ/L (98-107); CREATININE FOR GFR 0.91 MG/DL (0.70-1.30); GLOMERULAR FILTRATION RATE > 60.0 (>35); GLUCOSE, FASTING 93 MG/DL (70-100); POTASSIUM SERUM 3.6 MEQ/L (3.5-5.1); SODIUM LEVEL 138 MEQ/L (136-145)
[2021-07-07] MEDS: CLOPIDOGREL 75 MG TAB PO SCH (09:25)
[2021-07-07] MEDS: GABAPENTIN 100 MG CAP PO SCH (09:25)
[2021-07-07] MEDS: carBAMazepine XR 200 MG TAB PO SCH (09:25)
[2021-07-07] MEDS: ATORVASTATIN 10 MG TAB PO SCH (09:25)
[2021-07-07] MEDS: ASPIRIN 81MG ENTERIC TABLET PO SCH (09:25)
[2021-07-07] MEDS: CETIRIZINE (ZyrTEC) 10 MG TAB PO SCH (09:25)
[2021-07-07 09:30] VITALS: BP 128/69
[2021-07-07] MEDS: amLODIPine 5 MG TAB PO SCH (09:30)
[2021-07-07] MEDS: METOPROLOL SUCC (TopROL XL) 100MG *XL* TAB PO SCH (09:31)
[2021-07-07] MEDS ORDERED: VARIBAR PUDDING 40% w/v 230ML TUBE As Ordered ONE (10:55)
[2021-07-07] MEDS ORDERED: VARIBAR NECTAR 40% w/v 240ML SUSP BTL As Ordered ONE (10:55)
[2021-07-07] MEDS ORDERED: E-Z-PAQUE 96% w/w SUSP 176GM BTL As Ordered ONE (10:55)
[2021-07-07] MEDS ORDERED: BARIUM SULFATE 700 MG TABLET (E-Z-DISK) As Ordered ONE (10:56)
[2021-07-07] MEDS ORDERED: CEFD1CAP8 PO (12:56)
[2021-07-07] MEDS ORDERED: THICPOW5 PO (13:00)
[2021-07-07 14:00] VITALS: BP 110/58
--- NOTE | 2021-07-07 15:11 | DS.PDOC ---
Discharge Summary General Date of Admission Jul 04, 2021 at 11:17 Date of Discharge 07/07/21 Attending Physician: JOSÉ ANTONIO BERUMEN DO Discharge Summary PROCEDURES PERFORMED DURING STAY: None ADMITTING DIAGNOSES: 1. Aspiration pneumonia versus pneumonitis 2. Possible CVA DISCHARGE DIAGNOSES: 1. Aspiration pneumonia versus pneumonitis 2. Difficulty walking COMPLICATIONS/CHIEF COMPLAINT: Aspiration Pneumonia, Shortness Of Breath. HISTORY OF PRESENT ILLNESS: Of note, HPI obtained through patient's , Chana ([id number]) who reported that beginning around 730 last night, Juan started coughing and spitting up phlegm. He then went to bed and woke up around midnight coughing and very uncomfortable. He started to vomit phlegm and what appeared to be dark brown clots (does not believe it was blood) and went back to sleep. 30 minutes later, patient started vomiting phlegm again. Chana helped her get downstairs to a bed they had on the lower floor. She noted that he needed more help with the stairs than normal. When she was able to get him in bed, he vomited again and also lost control of his bladder. She noted he was unable sit up in bed by himself and use his legs. She called 911 when she could not understand his speech. Of note, patient has a history of 2 major strokes, per . 1st one was 15 years ago. Patient presented to [facility] after a fall and losing consciousness. He was not acting right and his brought him to the ER but was subsequently cleared. 15 days later patient complained of pain around the right eye and unable to see out of it. They went to a vision center where they were told he had signs of CVA. A 2nd stroke was 5 to 6 years ago and presented with a funny feeling in his right leg. HOSPITAL COURSE: Patient admitted for aspiration pneumonia versus pneumonitis and new onset stroke-like symptoms. CTA chest significant for fluid-filled esophagus most likely secondary to frequent vomiting. Bedside swallow evaluation, barium esophagram swallow were completed. Barium esophagram 07/04 showed laryngeal p enetration and cookie swallow study with x-ray 07/07 performed. Patient was cleared by speech for regular diet and nectar thickened liquids. IV Rocephin was started upon admission for possible aspiration pneumonia and patient received 4 days of antibiotics. Blood cultures and respiratory viral panel remained negative. With regards to possible CVA, brain MRI without contrast was ordered and Plavix was started. Patient was seen and evaluated by PT on 07/04 who recommended home with services. Patient was noted to have difficulty walking and recommended to follow-up with neurology outpatient upon discharge. Patient's dyslipidemia, hypertension, trigeminal neuralgia, glaucoma managed with home meds and remained uncomplicated throughout admission. DISCHARGE MEDICATIONS: Please see below. ALLERGIES: Please see below. PHYSICAL EXAMINATION ON DISCHARGE: VITAL SIGNS: Please see below. GENERAL: NAD, alert, awake, sitting in recliner eating breakfast HEENT: NC/AT, EOMI, nasal cannula in place on 1 L of oxygen, moist mucous membrane NECK: Supple CARDIOVASCULAR EXAMINATION: Normal heart sounds, RRR, no MRG RESPIRATORY EXAMINATION: CTA bilaterally, no wheezing rales or rhonchi, no accessory muscles use ABDOMINAL EXAMINATION: Soft, nontender, nondistended EXTREMITIES: Normal ROM, no edema SKIN: No new rashes/abrasions/wounds NEUROLOGICAL EXAMINATION: No focal neuro deficits PSYCHIATRIC EXAMINATION: AOx3, no depressed/anxious mood LABORATORY DATA: Please see below. IMAGING: CXR (07/04) Hypoventilatory change with bibasilar atelectasis. No consolidation. CTA Chest (07/04) No acute pulmonary embolic disease. 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 Extensive bilateral dependent and compressve atelectasis more pronounced on the right. Atelectasis or scarring in the right middle lobe and lingula. Mildly distended fluid-filled esophagus. Suspect gastroesophageal reflux. Esophagus x-ray w/ barium swallow (07/04) There is laryngeal penetration. Otherwise, single-contrast esophagram within normal limits. Brain MRI without contrast (07/04) No acute intracranial abnormality. CXR (07/05) Trace basilar atelectasis. Esophagus x-ray w/ cookie swallow (07/07) Was reported to show laryngeal penetration with thin barium but was able to swallow all other consistencies of barium. PROGNOSIS: Fair ACTIVITY: As tolerated DIET: Regular food, thickened liquids DISCHARGE PLAN: 1. Aspiration PNA vs pneumonitis- continue Cefdinir x3days 2. Difficulty walking- continue home PT DISPOSITION: Home w/ services DISCHARGE INSTRUCTIONS: 1. F/u PCP, 7-10days 2. F/u Neurology ITEMS TO FOLLOWUP ON ON OUTPATIENT: 1. PCP- f/u aspiration PNA vs pneumonitis, laryngeal penetration and adjusted diet 2. Neurology- difficulty walking DISCHARGE CONDITION: Stable TIME SPENT ON DISCHARGE: 35 minutes. Vital Signs/I&Os Vital Signs Date Time Temp Pulse Resp B/P (MAP) Pulse Ox O2 Delivery O2 Flow Rate FiO2 07/07/21 09:30 66 128/69 07/07/21 06:00 98.4 16 93 Nasal Cannula 2.0 I&O- Last 24 Hours up to 6 AM 07/07/21 05:59 Intake Total 220 ml Output Total 550 ml Balance -330 ml Laboratory Data Labs 24H Laboratory Tests 2 07/06/21 16:38: Bedside Glucose (Misc Panel) 106 07/07/21 06:20: Nucleated Red Blood Cells % (auto) 0.0, Anion Gap 6L, Glomerular Filtration Rate > 60.0, Calcium Level 7.9L CBC/BMP Laboratory Tests 07/07/21 06:20 FSBS Laboratory Tests Test 07/06/21 16:38 Range/Units Bedside Glucose (Misc Panel) 106 83-110 MG/DL Microbiology Microbiology 07/04/21 Blood Culture - Preliminary, Resulted No Growth after 48 hours. All Specime... 07/04/21 Blood Culture - Preliminary, Resulted No Growth after 48 hours. All Specime... 07/04/21 Blood Culture - Preliminary, Resulted No Growth after 72 hours. All specime... 07/04/21 Respiratory Virus Panel (PCR) ([facility]) - Final, Complete 07/04/21 Blood Culture - Preliminary, Resulted No Growth after 72 hours. All specime... Discharge Medications Scheduled Amlodipine Besylate (Amlodipine Besylate) 5 Mg Tab, 5 MG PO DAILY, (Reported) Aspirin (Ecotrin) 81 Mg Tablet.dr, 81 MG PO DAILY, (Reported) Atorvastatin Calcium (Atorvastatin Calcium) 10 Mg Tab, 10 MG PO DAILY, (Reported) Carbamazepine (Carbamazepine ER) 100 Mg Tab.er.12h, 200 MG PO BID, (Reported) Cefdinir (Cefdinir) 300 Mg Capsule, 300 MG PO BID Cetirizine HCl (Cetirizine HCl) 5 Mg Tablet, 5 MG PO DAILY, (Reported) GIVEN AROUND 1600 Clopidogrel Bisulfate (Clopidogrel) 75 Mg Tab, 75 MG PO DAILY, (Reported) Gabapentin (Gabapentin) 400 Mg Capsule, 400 MG PO BID, (Reported) TAKE WITH 100MG. @ 0730, @ 1930 Gabapentin (Gabapentin) 100 Mg Capsule, 100 MG PO BID, (Reported) TAKE WITH 400MG Hydrochlorothiazide (Hydrochlorothiazide) 25 Mg Tablet, 25 MG PO DAILY, (Reported) Metoprolol Succinate (Metoprolol Succinate) 100 Mg Tab.er.24h, 100 MG PO DAILY, (Reported) Multivitamin (Multi-Vitamin Daily) 1 Tab Tab, 1 TAB PO DAILY, (Reported) Travoprost (Travatan Z) 50 Drop/2.5 Ml Soln, 1 DROP OU QHS, (Reported) Scheduled PRN Starch (Thick-It) 1 Each Powd.pack, 1 POW PO 3-4XDP PRN for drinking liquids Miscellaneous Medications [Med Note] , (Reported) DR IS WRITING NEW RX FOR GABAPENTIN 600MG, PT HAS NOT PICKED UP YET STATED FROM . Allergies Coded Allergies: No Known Allergies (Unverified , 06/12/15) GME ATTESTATION GME ATTESTATION My faculty preceptor for this patient encounter was physically present during the encounter and was fully available. All aspects of the patient interview, examination, medical decision making process, and medical care plan development were reviewed and approved by the faculty preceptor. The faculty preceptor is aware and concurs with the plan as stated in the body of this note and will attest to such by his/her cosignature. ATTENDING NOTE I, José Antonio Berumen DO, have independently examined this patient and performed my own physical exam, as well as reviewed the documentation and edited where necessary. I have discussed in detail with the resident the findings and plan of treatment as documented by the resident and edited their note. I agree with their findings and treatment plan and have edited their documentation. I will continue to follow the patient during this hospital stay. Rafaela Gonzalez DO Jul 07, 2021 15:11 JOSÉ ANTONIO BERUMEN DO Jul 07, 2021 18:25
--- NOTE | 2021-07-07 18:05 | REP ---
INDICATION: dysphagia. COMPARISON: None. TECHNIQUE: The procedure was performed by RORY Frost, under the direct supervision of Dr. Lobo. The procedure was performed with Gia Bliss from speech pathology present. 5 ml aliquots of thin, pudding, mixed fruit, soft food, hard food and pill consistency barium was administered. FINDINGS: Penetration and aspiration was noted with thin liquids. The patient the was able to successfully swallow all other consistencies of barium were given. The detailed report of this examination will be provided by speech pathology. IMPRESSION: Penetration and aspiration of the thin barium liquid was noted on the study. The patient was able to successfully swallow all other consistencies of barium given. See detailed speech pathology report for further information. 1.7 minutes of fluoroscopy time was utilized for this procedure. Some fluoroscopic images are performed with last image hold technology. These images require no additional radiation <Electronically signed by Marian Solis > 07/07/21 [id number] <Electronically signed by Luis Lobo > 07/07/21 [id number]
== END 2021-07-07 16:38 | disposition home or self-care (01) | DRG 179 ==
LOC: M ED 04:31 → M ED INP 11:17 → ENRESERV 17:00 → M PCU 18:43 → M MSPAV 07-05 22:20
PROVIDERS: ADMIT Internal Medicine; ATTEND Family Medicine
DX: J69.0 Pneumonitis due to inhalation of food and vomit (principal); I10 Essential (primary) hypertension; G50.0 Trigeminal neuralgia; Z86.73 Personal history of transient ischemic attack (TIA), and cerebral infarction without residual deficits; E78.5 Hyperlipidemia, unspecified; Z79.82 Long term (current) use of aspirin; Z79.899 Other long term (current) drug therapy; H40.9 Unspecified glaucoma; Z87.891 Personal history of nicotine dependence

== ENCOUNTER 2021-10-29 18:29 | Inpatient (IN) | payer MEDICARE, OTHER ==
[~2021-10-29] VITALS: Ht 180.3 cm; Wt 84.6 kg
[~2021-10-29 18:29] MED LIST changes: +CEFD300C41 PO; +ECOT81TA5 PO; +GABA-1171 PO; +MED NOTE; +THICPOW5 PO
[2021-10-29] MEDS ORDERED: TEGR200T PO (18:40)
[2021-10-29 19:43] LABS: BASO % 0.3 % (0.0-1.0); EOS # 0.1 10^3/uL (0.0-0.5); EOS % 0.4 % (0.0-3.0); HEMOGLOBIN 15.1 g/dl (13.5-17.5); LYMPH # 1.4 10^3/uL (1.5-5.0); LYMPH % 10.5 % (24.0-44.0); MEAN CORPUSCULAR HEMOGLOBIN 31.5 pg (27.0-33.0); MEAN CORPUSCULAR HGB CONC 32.8 g/dl (32.0-36.5); MEAN CORPUSCULAR VOLUME 95.8 fl (80.0-96.0); MONO # 1.1 10^3/uL (0.0-0.8); MONO % 7.8 % (2.0-8.0); NEUTROPHILS % 80.5 % (36.0-66.0); PLATELET COUNT, AUTOMATED 148 10^3/uL (150-450); WHITE BLOOD COUNT 13.7 10^3/uL (4.0-10.0)
[2021-10-29 20:16] LABS: OSMOLALITY SERUM 287 MOSM/KG (280-301)
[2021-10-29 20:17] LABS: ALBUMIN 3.5 GM/DL (3.2-5.2); ALT/SGPT 21 U/L (12-78); BILIRUBIN,DIRECT 0.2 MG/DL (0.0-0.2); BILIRUBIN,TOTAL 0.6 MG/DL (0.2-1.0); BLOOD UREA NITROGEN 14 MG/DL (7-18); CALCIUM LEVEL 8.9 MG/DL (8.8-10.2); CARBON DIOXIDE LEVEL 31 MEQ/L (21-32); CHLORIDE LEVEL 100 MEQ/L (98-107); CREATININE FOR GFR 1.08 MG/DL (0.70-1.30); GLOMERULAR FILTRATION RATE > 60.0 (>35); GLUCOSE, FASTING 126 MG/DL (70-100); POTASSIUM SERUM 4.1 MEQ/L (3.5-5.1); SODIUM LEVEL 137 MEQ/L (136-145); THYROID STIMULATING HORMONE 0.759 uIU/ML (0.358-3.740); TOTAL PROTEIN 6.7 GM/DL (6.4-8.2)
[2021-10-29] MEDS ORDERED: ISOVUE-370 76% 100ML VIAL As Ordered ONE (21:26)
[2021-10-30] VITALS (10 sets, daily range): BP systolic 141–188; BP diastolic 63–81; O2SAT 91–97
[2021-10-30] MEDS ORDERED: ACETAMINOPHEN TAB 650MG DOSE (2X325MG) PO PRN (00:50)
[2021-10-30] MEDS ORDERED: VANCOMYCIN HCL 1,000 MG in IV FLUID PLACE HOLDER 1 EA IV ONE (00:50)
[2021-10-30] MEDS: PIPERACILLIN/TAZOBACTAM SOD 3.375 GM in D5W MINI-BAG PLUS 50 ML IV SCH ×4 (02:00→20:30)
[2021-10-30] MEDS: VANCOMYCIN HCL 1,000 MG, VIAL MATE ADAPTER 1 EACH in NS 250 ML IV SCH ×2 (03:00→17:09)
[2021-10-30] MEDS ORDERED: VANCOMYCIN HCL 750 MG, VIAL MATE ADAPTER 1 EACH in NS 250 ML IV ONE (04:00)
[2021-10-30] MEDS ORDERED: CARB100T PO (06:34)
[2021-10-30] MEDS ORDERED: VITMTA PO (06:34)
[2021-10-30] MEDS ORDERED: ASPI-161 PO (06:34)
[2021-10-30] MEDS ORDERED: GABA600T4 PO (06:34)
[2021-10-30] MEDS ORDERED: THICPOW5 PO (06:34)
[2021-10-30] MEDS ORDERED: CETI-24 PO (06:34)
[2021-10-30] MEDS ORDERED: HOME MED LIST COMPLETE! XX SCH (06:35)
[2021-10-30] MEDS: ASPIRIN 81MG ENTERIC TABLET PO SCH (08:27)
[2021-10-30] MEDS: ENOXAPARIN 40MG/0.4ML SYRINGE (J1650 PER 10MG) SC SCH (08:27)
[2021-10-30] MEDS: CLOPIDOGREL 75 MG TAB PO SCH (08:28)
[2021-10-30] MEDS: METOPROLOL SUCC (TopROL XL) 100MG *XL* TAB PO SCH (08:28)
[2021-10-30] MEDS: MULTIVITAMINS/MINERALS THERAP 1 TAB PO SCH (08:28)
[2021-10-30] MEDS: amLODIPine 5 MG TAB PO SCH (08:28)
[2021-10-30] MEDS: ATORVASTATIN 10 MG TAB PO SCH (08:28)
[2021-10-30 08:41] LABS: BASO # 0.1 10^3/uL (0.0-0.2); BASO % 0.6 % (0.0-1.0); EOS # 0.2 10^3/uL (0.0-0.5); EOS % 2.2 % (0.0-3.0); HEMATOCRIT 44.2 % (42.0-52.0); HEMOGLOBIN 14.4 g/dl (13.5-17.5); LYMPH # 1.7 10^3/uL (1.5-5.0); LYMPH % 18.8 % (24.0-44.0); MEAN CORPUSCULAR HEMOGLOBIN 31.6 pg (27.0-33.0); MEAN CORPUSCULAR HGB CONC 32.6 g/dl (32.0-36.5); MEAN CORPUSCULAR VOLUME 96.9 fl (80.0-96.0); MONO # 1.1 10^3/uL (0.0-0.8); NEUTROPHILS % 66.1 % (36.0-66.0); PLATELET COUNT, AUTOMATED 137 10^3/uL (150-450); RED BLOOD COUNT 4.56 10^6/uL (4.30-6.10); WHITE BLOOD COUNT 9.1 10^3/uL (4.0-10.0)
[2021-10-30 08:52] LABS: INR 0.99; PROTHROMBIN TIME 13.5 SECONDS (12.7-14.5)
[2021-10-30] MEDS ORDERED: carBAMazepine XR 100 MG TAB PO SCH (09:00)
[2021-10-30] MEDS ORDERED: CETIRIZINE (ZyrTEC) 10 MG TAB PO SCH (09:00)
[2021-10-30] MEDS ORDERED: GABAPENTIN 300 MG CAP PO SCH (09:00)
[2021-10-30 09:09] LABS: BLOOD UREA NITROGEN 12 MG/DL (7-18); CALCIUM LEVEL 8.7 MG/DL (8.8-10.2); CARBON DIOXIDE LEVEL 31 MEQ/L (21-32); CHLORIDE LEVEL 102 MEQ/L (98-107); GLOMERULAR FILTRATION RATE > 60.0 (>35); GLUCOSE, FASTING 108 MG/DL (70-100); POTASSIUM SERUM 4.3 MEQ/L (3.5-5.1); SODIUM LEVEL 140 MEQ/L (136-145)
[2021-10-30 12:45] LABS: HIV 1&2 SCREEN CENTAUR NEGATIVE (NEGATIVE)
[2021-10-30] MEDS ORDERED: **hydrALAZINE** 10 MG TAB PO ONE (16:50)
[2021-10-30] MEDS ORDERED: hydrALAZINE 20MG/ML 1ML VIAL (J0360 PER 20MG) IV PRN (18:55)
[2021-10-30] MEDS: LATANOPROST 0.005% OPHTH SOLN 2.5 ML OU SCH (20:30)
[2021-10-31] VITALS (21 sets, daily range): BP systolic 117–192; BP diastolic 54–80; O2SAT 92–98
[2021-10-31] MEDS: PIPERACILLIN/TAZOBACTAM SOD 3.375 GM in D5W MINI-BAG PLUS 50 ML IV SCH ×4 (02:05→21:20)
[2021-10-31] MEDS: VANCOMYCIN HCL 1,000 MG, VIAL MATE ADAPTER 1 EACH in NS 250 ML IV SCH (04:10)
[2021-10-31 05:04] LABS: BASO % 0.3 % (0.0-1.0); EOS # 0.3 10^3/uL (0.0-0.5); EOS % 2.5 % (0.0-3.0); HEMATOCRIT 42.6 % (42.0-52.0); HEMOGLOBIN 13.9 g/dl (13.5-17.5); LYMPH # 1.7 10^3/uL (1.5-5.0); LYMPH % 16.6 % (24.0-44.0); MEAN CORPUSCULAR HEMOGLOBIN 31.5 pg (27.0-33.0); MEAN CORPUSCULAR HGB CONC 32.6 g/dl (32.0-36.5); MEAN CORPUSCULAR VOLUME 96.6 fl (80.0-96.0); MONO # 1.2 10^3/uL (0.0-0.8); MONO % 11.4 % (2.0-8.0); NEUTROPHILS % 68.9 % (36.0-66.0); PLATELET COUNT, AUTOMATED 144 10^3/uL (150-450); RED BLOOD COUNT 4.41 10^6/uL (4.30-6.10); WHITE BLOOD COUNT 10.1 10^3/uL (4.0-10.0)
[2021-10-31 05:51] LABS: BLOOD UREA NITROGEN 12 MG/DL (7-18); CALCIUM LEVEL 8.4 MG/DL (8.8-10.2); CARBON DIOXIDE LEVEL 26 MEQ/L (21-32); CHLORIDE LEVEL 101 MEQ/L (98-107); CREATININE FOR GFR 1.11 MG/DL (0.70-1.30); GLOMERULAR FILTRATION RATE > 60.0 (>35); GLUCOSE, FASTING 110 MG/DL (70-100); POTASSIUM SERUM 3.4 MEQ/L (3.5-5.1); SODIUM LEVEL 134 MEQ/L (136-145)
[2021-10-31] MEDS ORDERED: POTASSIUM CHLORIDE 10MEQ SR TABLET PO ONE (07:00)
[2021-10-31] MEDS: ASPIRIN 81MG ENTERIC TABLET PO SCH (08:36)
[2021-10-31] MEDS: amLODIPine 5 MG TAB PO SCH (08:37)
[2021-10-31] MEDS: MULTIVITAMINS/MINERALS THERAP 1 TAB PO SCH (08:37)
[2021-10-31] MEDS: ATORVASTATIN 10 MG TAB PO SCH (08:38)
[2021-10-31] MEDS: CLOPIDOGREL 75 MG TAB PO SCH (08:38)
[2021-10-31] MEDS: METOPROLOL SUCC (TopROL XL) 100MG *XL* TAB PO SCH (08:39)
[2021-10-31] MEDS: ENOXAPARIN 40MG/0.4ML SYRINGE (J1650 PER 10MG) SC SCH (08:40)
[2021-10-31 15:50] LABS: BLOOD UREA NITROGEN 14 MG/DL (7-18); CALCIUM LEVEL 8.9 MG/DL (8.8-10.2); CARBON DIOXIDE LEVEL 30 MEQ/L (21-32); CHLORIDE LEVEL 103 MEQ/L (98-107); CREATININE FOR GFR 1.16 MG/DL (0.70-1.30); GLOMERULAR FILTRATION RATE > 60.0 (>35); GLUCOSE, FASTING 114 MG/DL (70-100); POTASSIUM SERUM 3.9 MEQ/L (3.5-5.1); SODIUM LEVEL 137 MEQ/L (136-145)
[2021-10-31 16:12] LABS: Lyme Disease IgG/IgM Antibodie <0.91 ISR (0.00-0.90); Lyme Disease IgM Ab Quantitati <0.80 index (0.00-0.79)
[2021-10-31] MEDS ORDERED: **hydrALAZINE** 50 MG TAB PO ONE (20:45)
[2021-10-31] MEDS: LATANOPROST 0.005% OPHTH SOLN 2.5 ML OU SCH (21:20)
[2021-11-01] VITALS (13 sets, daily range): BP systolic 128–186; BP diastolic 60–79; O2SAT 94–96
[2021-11-01] MEDS: PIPERACILLIN/TAZOBACTAM SOD 3.375 GM in D5W MINI-BAG PLUS 50 ML IV SCH (03:23)
[2021-11-01 06:26] LABS: BASO # 0.1 10^3/uL (0.0-0.2); BASO % 0.6 % (0.0-1.0); EOS # 0.3 10^3/uL (0.0-0.5); EOS % 3.2 % (0.0-3.0); HEMATOCRIT 42.4 % (42.0-52.0); HEMOGLOBIN 13.9 g/dl (13.5-17.5); LYMPH # 1.7 10^3/uL (1.5-5.0); LYMPH % 21.4 % (24.0-44.0); MEAN CORPUSCULAR HEMOGLOBIN 30.9 pg (27.0-33.0); MEAN CORPUSCULAR HGB CONC 32.8 g/dl (32.0-36.5); MEAN CORPUSCULAR VOLUME 94.2 fl (80.0-96.0); MONO # 0.9 10^3/uL (0.0-0.8); MONO % 12.1 % (2.0-8.0); NEUTROPHILS # 4.9 10^3/uL (1.5-8.5); NEUTROPHILS % 62.4 % (36.0-66.0); PLATELET COUNT, AUTOMATED 165 10^3/uL (150-450); WHITE BLOOD COUNT 7.8 10^3/uL (4.0-10.0)
[2021-11-01 06:56] LABS: BLOOD UREA NITROGEN 12 MG/DL (7-18); CALCIUM LEVEL 8.7 MG/DL (8.8-10.2); CARBON DIOXIDE LEVEL 28 MEQ/L (21-32); CHLORIDE LEVEL 103 MEQ/L (98-107); CREATININE FOR GFR 1.02 MG/DL (0.70-1.30); GLOMERULAR FILTRATION RATE > 60.0 (>35); GLUCOSE, FASTING 99 MG/DL (70-100); POTASSIUM SERUM 3.8 MEQ/L (3.5-5.1); SODIUM LEVEL 139 MEQ/L (136-145)
[2021-11-01] MEDS ORDERED: carBAMazepine 200MG TABLET PO SCH (09:00)
[2021-11-01] MEDS ORDERED: amLODIPine 5 MG TAB PO SCH (09:00)
[2021-11-01] MEDS: GABAPENTIN 100 MG CAP PO SCH ×2 (10:20→22:05)
[2021-11-01] MEDS: ASPIRIN 81MG ENTERIC TABLET PO SCH (10:20)
[2021-11-01] MEDS: CLOPIDOGREL 75 MG TAB PO SCH (10:21)
[2021-11-01] MEDS: MULTIVITAMINS/MINERALS THERAP 1 TAB PO SCH (10:21)
[2021-11-01] MEDS: ATORVASTATIN 10 MG TAB PO SCH (10:22)
[2021-11-01] MEDS: ENOXAPARIN 40MG/0.4ML SYRINGE (J1650 PER 10MG) SC SCH (10:22)
[2021-11-01] MEDS: METOPROLOL SUCC (TopROL XL) 100MG *XL* TAB PO SCH (10:22)
[2021-11-01] MEDS ORDERED: amLODIPine 5 MG TAB PO ONE (10:40)
[2021-11-01] MEDS: carBAMazepine XR 200 MG TAB PO SCH ×2 (11:48→21:00)
[2021-11-01] MEDS ORDERED: **hydrALAZINE** 10 MG TAB PO SCH (12:00)
[2021-11-01] MEDS: **hydrALAZINE** 50 MG TAB PO SCH ×2 (12:58→18:56)
[2021-11-01] MEDS: LATANOPROST 0.005% OPHTH SOLN 2.5 ML OU SCH (22:05)
[2021-11-02] MEDS: **hydrALAZINE** 50 MG TAB PO SCH ×4 (00:11→18:00)
[2021-11-02 05:25] LABS: BASO # 0.1 10^3/uL (0.0-0.2); BASO % 0.8 % (0.0-1.0); EOS # 0.3 10^3/uL (0.0-0.5); EOS % 2.8 % (0.0-3.0); HEMATOCRIT 42.5 % (42.0-52.0); HEMOGLOBIN 14.2 g/dl (13.5-17.5); MEAN CORPUSCULAR HEMOGLOBIN 31.5 pg (27.0-33.0); MEAN CORPUSCULAR HGB CONC 33.4 g/dl (32.0-36.5); MEAN CORPUSCULAR VOLUME 94.2 fl (80.0-96.0); MONO # 1.2 10^3/uL (0.0-0.8); MONO % 12.9 % (2.0-8.0); NEUTROPHILS % 62.2 % (36.0-66.0); PLATELET COUNT, AUTOMATED 200 10^3/uL (150-450); RED BLOOD COUNT 4.51 10^6/uL (4.30-6.10); WHITE BLOOD COUNT 9.6 10^3/uL (4.0-10.0)
[2021-11-02 05:43] LABS: BLOOD UREA NITROGEN 12 MG/DL (7-18); CALCIUM LEVEL 8.7 MG/DL (8.8-10.2); CARBON DIOXIDE LEVEL 25 MEQ/L (21-32); CHLORIDE LEVEL 103 MEQ/L (98-107); CREATININE FOR GFR 1.04 MG/DL (0.70-1.30); GLOMERULAR FILTRATION RATE > 60.0 (>35); GLUCOSE, FASTING 97 MG/DL (70-100); POTASSIUM SERUM 3.7 MEQ/L (3.5-5.1); SODIUM LEVEL 136 MEQ/L (136-145)
[2021-11-02 08:00] VITALS: BP 137/86
[2021-11-02] MEDS: CLOPIDOGREL 75 MG TAB PO SCH (09:55)
[2021-11-02] MEDS: GABAPENTIN 100 MG CAP PO SCH ×2 (09:55→21:46)
[2021-11-02] MEDS: MULTIVITAMINS/MINERALS THERAP 1 TAB PO SCH (09:55)
[2021-11-02] MEDS: ASPIRIN 81MG ENTERIC TABLET PO SCH (09:56)
[2021-11-02] MEDS: carBAMazepine XR 200 MG TAB PO SCH ×2 (09:57→21:47)
[2021-11-02] MEDS: ATORVASTATIN 10 MG TAB PO SCH (09:57)
[2021-11-02] MEDS: METOPROLOL SUCC (TopROL XL) 100MG *XL* TAB PO SCH (09:58)
[2021-11-02] MEDS: ENOXAPARIN 40MG/0.4ML SYRINGE (J1650 PER 10MG) SC SCH (09:58)
[2021-11-02 18:11] VITALS: BP 150/69
[2021-11-02 20:00] VITALS: BP 156/60
[2021-11-02] MEDS: LATANOPROST 0.005% OPHTH SOLN 2.5 ML OU SCH (21:45)
[2021-11-02 23:30] VITALS: BP_SYST 156; BP_DIAS 66; BP_DIAS 73
[2021-11-03] MEDS: **hydrALAZINE** 50 MG TAB PO SCH ×3 (05:52→12:00)
[2021-11-03 06:00] VITALS: BP 163/68
[2021-11-03 06:36] LABS: BASO # 0.1 10^3/uL (0.0-0.2); BASO % 0.7 % (0.0-1.0); EOS # 0.2 10^3/uL (0.0-0.5); HEMOGLOBIN 13.5 g/dl (13.5-17.5); LYMPH # 1.8 10^3/uL (1.5-5.0); LYMPH % 22.8 % (24.0-44.0); MEAN CORPUSCULAR HEMOGLOBIN 31.5 pg (27.0-33.0); MEAN CORPUSCULAR HGB CONC 32.9 g/dl (32.0-36.5); MEAN CORPUSCULAR VOLUME 95.8 fl (80.0-96.0); MONO % 12.7 % (2.0-8.0); NEUTROPHILS # 4.6 10^3/uL (1.5-8.5); NEUTROPHILS % 60.4 % (36.0-66.0); PLATELET COUNT, AUTOMATED 175 10^3/uL (150-450); RED BLOOD COUNT 4.28 10^6/uL (4.30-6.10); WHITE BLOOD COUNT 7.7 10^3/uL (4.0-10.0)
[2021-11-03 06:57] LABS: BLOOD UREA NITROGEN 18 MG/DL (7-18); CALCIUM LEVEL 8.6 MG/DL (8.8-10.2); CARBON DIOXIDE LEVEL 27 MEQ/L (21-32); CHLORIDE LEVEL 105 MEQ/L (98-107); CREATININE FOR GFR 1.14 MG/DL (0.70-1.30); GLOMERULAR FILTRATION RATE > 60.0 (>35); GLUCOSE, FASTING 90 MG/DL (70-100); POTASSIUM SERUM 3.3 MEQ/L (3.5-5.1); SODIUM LEVEL 140 MEQ/L (136-145)
[2021-11-03 06:58] LABS: MAGNESIUM LEVEL 2.2 MG/DL (1.8-2.4)
[2021-11-03] MEDS ORDERED: POTASSIUM CHLORIDE 10MEQ SR TABLET PO ONE (08:00)
[2021-11-03] MEDS: MULTIVITAMINS/MINERALS THERAP 1 TAB PO SCH (09:48)
[2021-11-03] MEDS: CLOPIDOGREL 75 MG TAB PO SCH (09:48)
[2021-11-03] MEDS: carBAMazepine XR 200 MG TAB PO SCH ×2 (09:48→21:47)
[2021-11-03] MEDS: GABAPENTIN 100 MG CAP PO SCH ×2 (09:48→21:46)
[2021-11-03] MEDS: ENOXAPARIN 40MG/0.4ML SYRINGE (J1650 PER 10MG) SC SCH (09:48)
[2021-11-03] MEDS: METOPROLOL SUCC (TopROL XL) 100MG *XL* TAB PO SCH (09:49)
[2021-11-03] MEDS: ATORVASTATIN 10 MG TAB PO SCH (09:49)
[2021-11-03] MEDS: ASPIRIN 81MG ENTERIC TABLET PO SCH (09:49)
[2021-11-03 13:16] VITALS: BP 114/58
[2021-11-03] MEDS ORDERED: TAMSULOSIN 0.4 MG CAP PO ONE (14:30)
[2021-11-03] MEDS: MIRALAX *UNIT DOSE* 17GM PACKET PO SCH (21:47)
[2021-11-03] MEDS: LATANOPROST 0.005% OPHTH SOLN 2.5 ML OU SCH (21:51)
[2021-11-04 05:48] LABS: BASO # 0.1 10^3/uL (0.0-0.2); BASO % 1.2 % (0.0-1.0); EOS # 0.3 10^3/uL (0.0-0.5); HEMATOCRIT 40.8 % (42.0-52.0); HEMOGLOBIN 13.4 g/dl (13.5-17.5); LYMPH # 1.6 10^3/uL (1.5-5.0); LYMPH % 23.9 % (24.0-44.0); MEAN CORPUSCULAR HEMOGLOBIN 31.4 pg (27.0-33.0); MEAN CORPUSCULAR HGB CONC 32.8 g/dl (32.0-36.5); MEAN CORPUSCULAR VOLUME 95.6 fl (80.0-96.0); MONO # 0.9 10^3/uL (0.0-0.8); MONO % 12.6 % (2.0-8.0); PLATELET COUNT, AUTOMATED 179 10^3/uL (150-450); RED BLOOD COUNT 4.27 10^6/uL (4.30-6.10); WHITE BLOOD COUNT 6.8 10^3/uL (4.0-10.0)
[2021-11-04 06:00] VITALS: BP 106/48
[2021-11-04 06:13] LABS: BLOOD UREA NITROGEN 19 MG/DL (7-18); CALCIUM LEVEL 8.6 MG/DL (8.8-10.2); CARBON DIOXIDE LEVEL 27 MEQ/L (21-32); CHLORIDE LEVEL 108 MEQ/L (98-107); CREATININE FOR GFR 1.02 MG/DL (0.70-1.30); GLOMERULAR FILTRATION RATE > 60.0 (>35); GLUCOSE, FASTING 96 MG/DL (70-100); MAGNESIUM LEVEL 2.1 MG/DL (1.8-2.4); POTASSIUM SERUM 4.1 MEQ/L (3.5-5.1); SODIUM LEVEL 141 MEQ/L (136-145)
[2021-11-04] MEDS: ENOXAPARIN 40MG/0.4ML SYRINGE (J1650 PER 10MG) SC SCH (08:16)
[2021-11-04] MEDS: MIRALAX *UNIT DOSE* 17GM PACKET PO SCH ×2 (08:16→20:56)
[2021-11-04] MEDS: TAMSULOSIN 0.4 MG CAP PO SCH (08:17)
[2021-11-04] MEDS: MULTIVITAMINS/MINERALS THERAP 1 TAB PO SCH (08:17)
[2021-11-04] MEDS: CLOPIDOGREL 75 MG TAB PO SCH (08:17)
[2021-11-04] MEDS: ASPIRIN 81MG ENTERIC TABLET PO SCH (08:17)
[2021-11-04] MEDS: GABAPENTIN 100 MG CAP PO SCH ×2 (08:17→20:56)
[2021-11-04] MEDS: ATORVASTATIN 10 MG TAB PO SCH (08:17)
[2021-11-04] MEDS: carBAMazepine XR 200 MG TAB PO SCH ×2 (08:17→20:56)
[2021-11-04 08:19] VITALS: BP 122/63
[2021-11-04] MEDS: METOPROLOL SUCC (TopROL XL) 100MG *XL* TAB PO SCH (08:19)
[2021-11-04] MEDS: LATANOPROST 0.005% OPHTH SOLN 2.5 ML OU SCH (20:56)
[2021-11-05 06:00] VITALS: BP 128/59
[2021-11-05 06:07] LABS: BASO # 0.1 10^3/uL (0.0-0.2); BASO % 0.7 % (0.0-1.0); EOS # 0.3 10^3/uL (0.0-0.5); EOS % 3.8 % (0.0-3.0); HEMATOCRIT 40.4 % (42.0-52.0); HEMOGLOBIN 13.1 g/dl (13.5-17.5); LYMPH # 1.8 10^3/uL (1.5-5.0); LYMPH % 23.4 % (24.0-44.0); MEAN CORPUSCULAR HEMOGLOBIN 31.3 pg (27.0-33.0); MEAN CORPUSCULAR HGB CONC 32.4 g/dl (32.0-36.5); MEAN CORPUSCULAR VOLUME 96.4 fl (80.0-96.0); MONO % 12.4 % (2.0-8.0); NEUTROPHILS # 4.5 10^3/uL (1.5-8.5); NEUTROPHILS % 59.3 % (36.0-66.0); PLATELET COUNT, AUTOMATED 174 10^3/uL (150-450); RED BLOOD COUNT 4.19 10^6/uL (4.30-6.10); WHITE BLOOD COUNT 7.6 10^3/uL (4.0-10.0)
[2021-11-05 06:29] LABS: BLOOD UREA NITROGEN 16 MG/DL (7-18); CALCIUM LEVEL 8.5 MG/DL (8.8-10.2); CARBON DIOXIDE LEVEL 27 MEQ/L (21-32); CHLORIDE LEVEL 104 MEQ/L (98-107); CREATININE FOR GFR 0.98 MG/DL (0.70-1.30); GLOMERULAR FILTRATION RATE > 60.0 (>35); GLUCOSE, FASTING 94 MG/DL (70-100); POTASSIUM SERUM 3.6 MEQ/L (3.5-5.1); SODIUM LEVEL 138 MEQ/L (136-145)
[2021-11-05 08:00] VITALS: BP 140/70
[2021-11-05] MEDS: MIRALAX *UNIT DOSE* 17GM PACKET PO SCH ×2 (09:00→09:32)
[2021-11-05] MEDS: GABAPENTIN 100 MG CAP PO SCH (09:30)
[2021-11-05] MEDS: ASPIRIN 81MG ENTERIC TABLET PO SCH (09:30)
[2021-11-05] MEDS: TAMSULOSIN 0.4 MG CAP PO SCH (09:30)
[2021-11-05] MEDS: MULTIVITAMINS/MINERALS THERAP 1 TAB PO SCH (09:31)
[2021-11-05] MEDS: ATORVASTATIN 10 MG TAB PO SCH (09:31)
[2021-11-05] MEDS: CLOPIDOGREL 75 MG TAB PO SCH (09:32)
[2021-11-05] MEDS: METOPROLOL SUCC (TopROL XL) 100MG *XL* TAB PO SCH (09:32)
[2021-11-05] MEDS: ENOXAPARIN 40MG/0.4ML SYRINGE (J1650 PER 10MG) SC SCH (09:33)
[2021-11-05] MEDS: carBAMazepine XR 200 MG TAB PO SCH (09:34)
[2021-11-05] MEDS ORDERED: AMLO1TAB25 PO (12:17)
[2021-11-05 14:00] VITALS: BP 135/70
== END 2021-11-05 15:37 | disposition home health service (06) | DRG 178 ==
LOC: M ED 18:29 → M ED INP 23:50 → ENRESERV 10-30 16:20 → M PCU 10-30 17:16 → M MSPAV 11-02 22:00
PROVIDERS: ADMIT Family Medicine; ATTEND General Practice
DX: J69.0 Pneumonitis due to inhalation of food and vomit (principal); G45.9 Transient cerebral ischemic attack, unspecified; I69.391 Dysphagia following cerebral infarction; I10 Essential (primary) hypertension; G50.0 Trigeminal neuralgia; Z79.899 Other long term (current) drug therapy; Z79.82 Long term (current) use of aspirin; Z87.891 Personal history of nicotine dependence; I69.398 Other sequelae of cerebral infarction; H40.9 Unspecified glaucoma; E78.5 Hyperlipidemia, unspecified; E83.51 Hypocalcemia; E87.6 Hypokalemia

== ENCOUNTER → 2022-08-17 | Outpatient (CLI) | payer MEDICARE, OTHER ==
[~2022-08-17] MED LIST changes: +AMLO1TAB25 PO; +ASPI-161 PO; +AZEL0.055; +CETI-24 PO; +GABA600T4 PO; +TEGR200T PO; +VITMTA PO
== END ==
LOC: M LABSMTC 09:21
PROVIDERS: ATTEND Anesthesiology
DX: Z01.812 Encounter for preprocedural laboratory examination (principal); Z11.52 Encounter for screening for COVID-19

== ENCOUNTER 2022-08-19 10:47 | Day surgery (SDC) | payer MEDICARE, OTHER ==
[~2022-08-19] VITALS: Ht 177.8 cm; Wt 89.4 kg
[~2022-08-19 10:47] MED LIST changes: +ACETYLCHOLINE OPHTH SOLN 1% 2ML (MIOCHOL-E) As Ordered ONE; +BSS IRRIG/VANCO(10MG)/TOBRA(5MG)/EPINEPH(1:1000-0.5CC)500ML BAG-ORONLY IR ONE; +CYCLOPENTOLATE 1% OPHTH SOLN 2 ML BTL OS SCH; +LIDOCAINE 1% 1ML PF SYRINGE (OR EYE CASES) As Ordered ONE; +LIDOCAINE 3.5 % 1ML OPHTH TOPICAL GEL OU ONE; +OFLOXACIN 0.3 % (OCUFLOX) OPTH SOL 5ML OS ONE; +PHENYLEPHRINE 10% OPHTH SOL 5ML OS PRN; +PHENYLEPHRINE 2.5% OPHTH SOL 2ML OS SCH; +TROPICAMIDE 1% OPHTH SOLN 2ML OS SCH
[2022-08-19] MEDS ORDERED: TEGR200T PO (11:36)
[2022-08-19] MEDS ORDERED: fentaNYL 100 MCG/2 ML INJECTION As Ordered ONE (12:55)
[2022-08-19] MEDS ORDERED: MIDAZOLAM INJ 2MG/2ML VIAL (J2250 PER 1MG) As Ordered ONE (12:55)
[2022-08-19 13:19] VITALS: BP 189/84
== END 2022-08-19 13:45 | disposition home or self-care (01) ==
LOC: M SDC 10:47
PROVIDERS: ATTEND Ophthalmology
DX: H25.12 Age-related nuclear cataract, left eye (principal); H40.9 Unspecified glaucoma; I10 Essential (primary) hypertension; Z79.899 Other long term (current) drug therapy; Z79.82 Long term (current) use of aspirin
CPT/HCPCS: 66991; C1783; J2250; J3010; V2632

== ENCOUNTER 2022-09-22 09:59 | Emergency (ER) | payer MEDICARE, OTHER ==
[~2022-09-22] VITALS: Ht 175.3 cm; Wt 86.4 kg
[~2022-09-22 09:59] MED LIST changes: -ACETYLCHOLINE OPHTH SOLN 1% 2ML (MIOCHOL-E) As Ordered ONE; -BSS IRRIG/VANCO(10MG)/TOBRA(5MG)/EPINEPH(1:1000-0.5CC)500ML BAG-ORONLY IR ONE; -CYCLOPENTOLATE 1% OPHTH SOLN 2 ML BTL OS SCH; -LIDOCAINE 1% 1ML PF SYRINGE (OR EYE CASES) As Ordered ONE; -LIDOCAINE 3.5 % 1ML OPHTH TOPICAL GEL OU ONE; -OFLOXACIN 0.3 % (OCUFLOX) OPTH SOL 5ML OS ONE; -PHENYLEPHRINE 10% OPHTH SOL 5ML OS PRN; -PHENYLEPHRINE 2.5% OPHTH SOL 2ML OS SCH; -TROPICAMIDE 1% OPHTH SOLN 2ML OS SCH
[2022-09-22] MEDS ORDERED: TRAV2.5D (10:20)
[2022-09-22] MEDS ORDERED: NS 1,000 ML IV ONE (13:30)
[2022-09-22 13:56] LABS: BASO % 0.2 % (0.0-1.0); EOS % 0.1 % (0.0-3.0); HEMATOCRIT 52.6 % (42.0-52.0); HEMOGLOBIN 16.9 g/dl (13.5-17.5); LYMPH # 1.1 10^3/uL (1.5-5.0); MEAN CORPUSCULAR HEMOGLOBIN 31.3 pg (27.0-33.0); MEAN CORPUSCULAR HGB CONC 32.1 g/dl (32.0-36.5); MEAN CORPUSCULAR VOLUME 97.4 fl (80.0-96.0); MONO # 1.2 10^3/uL (0.0-0.8); MONO % 6.5 % (2.0-8.0); NEUTROPHILS # 15.6 10^3/uL (1.5-8.5); NEUTROPHILS % 86.6 % (36.0-66.0); PLATELET COUNT, AUTOMATED 187 10^3/uL (150-450)
[2022-09-22 14:27] LABS: ALBUMIN 4.1 G/DL (3.2-5.2); ALKALINE PHOSPHATASE 137 U/L (46-116); ALT/SGPT 17 U/L (7.0-40); AST/SGOT 25 U/L (<34); BILIRUBIN,TOTAL 1.1 MG/DL (0.3-1.2); BLOOD UREA NITROGEN 17 MG/DL (9-23); CARBON DIOXIDE LEVEL 27 MMOL/L (20-31); CHLORIDE LEVEL 97 MMOL/L (98-107); CREATININE FOR GFR 1.18 MG/DL (0.70-1.30); GLOMERULAR FILTRATION RATE > 60.0 (>35); GLUCOSE, FASTING 124 MG/DL (74-106); POTASSIUM SERUM 4.1 MMOL/L (3.5-5.1); SODIUM LEVEL 140 MMOL/L (136-145); TOTAL PROTEIN 8.2 G/DL (5.7-8.2)
[2022-09-22] MEDS ORDERED: ACETAMINOPHEN 500 MG TAB PO ONE (15:15)
[2022-09-22] MEDS ORDERED: CEPHALEXIN 500 MG CAP PO ONE ×2 (15:15→16:50)
[2022-09-22] MEDS ORDERED: CEFT50VL IM (15:16)
[2022-09-22] MEDS ORDERED: CEPH500C PO (15:16)
[2022-09-22 17:06] VITALS: BP 100/51
[2022-09-25] MEDS ORDERED: CIPR500T39 PO (07:23)
== END 2022-09-22 17:13 | disposition home or self-care (01) ==
LOC: M ED 09:59
DX: N39.0 Urinary tract infection, site not specified (principal); E86.0 Dehydration; I10 Essential (primary) hypertension; E78.5 Hyperlipidemia, unspecified; Z86.79 Personal history of other diseases of the circulatory system; Z86.73 Personal history of transient ischemic attack (TIA), and cerebral infarction without residual deficits; Z87.891 Personal history of nicotine dependence; Z79.82 Long term (current) use of aspirin; Z79.899 Other long term (current) drug therapy; Z79.811 Long term (current) use of aromatase inhibitors

== ENCOUNTER → 2022-10-07 | Outpatient (REF) | payer MEDICARE, OTHER ==
[~2022-10-07] MED LIST changes: +CEFT50VL IM; +CEPH500C PO; +CIPR500T39 PO; +TRAV2.5D
== END ==
LOC: M LAB REF 12:34
PROVIDERS: ATTEND Family Medicine
DX: N39.0 Urinary tract infection, site not specified (principal)

== ENCOUNTER → 2022-11-09 | Outpatient (CLI) | payer MEDICARE, OTHER ==
[~2022-11-09] MED LIST changes: +OCUVTAB8 PO
== END ==
LOC: M LABSMTC 09:13
PROVIDERS: ATTEND Anesthesiology
DX: Z01.812 Encounter for preprocedural laboratory examination (principal); Z11.52 Encounter for screening for COVID-19

== ENCOUNTER 2022-11-11 06:42 | Day surgery (SDC) | payer MEDICARE, OTHER ==
[~2022-11-11] VITALS: Ht 180.3 cm; Wt 80.0 kg
[~2022-11-11 06:42] MED LIST changes: +BSS IRRIG/VANCO(10MG)/TOBRA(5MG)/EPINEPH(1:1000-0.5CC)500ML BAG-ORONLY IR ONE; +CYCLOPENTOLATE 1% OPHTH SOLN 2ML BTL OD SCH; +LIDOCAINE 3.5 % 1ML OPHTH TOPICAL GEL OU ONE; +OFLOXACIN 0.3 % (OCUFLOX) OPTH SOL 5ML OD ONE; +PHENYLEPHRINE 10% OPHTH SOL 5ML OD PRN; +PHENYLEPHRINE 2.5% OPHTH SOL 2ML OD SCH; +TROPICAMIDE 1% OPHTH SOLN 15ML OD SCH
[2022-11-11] MEDS ORDERED: CEFUROXIME 1MG/0.1ML INTRACAMERAL INJ As Ordered ONE (06:51)
[2022-11-11] MEDS ORDERED: LIDOCAINE 1% SDV 5ML VIAL As Ordered ONE (06:51)
[2022-11-11] MEDS ORDERED: MIDAZOLAM INJ 2MG/2ML VIAL As Ordered ONE (09:15)
== END 2022-11-11 10:05 | disposition home or self-care (01) ==
LOC: M SDC 06:42
PROVIDERS: ATTEND Ophthalmology
DX: H25.11 Age-related nuclear cataract, right eye (principal); H40.811 Glaucoma with increased episcleral venous pressure, right eye; I10 Essential (primary) hypertension; E78.5 Hyperlipidemia, unspecified; Z86.73 Personal history of transient ischemic attack (TIA), and cerebral infarction without residual deficits; Z87.891 Personal history of nicotine dependence; Z79.899 Other long term (current) drug therapy
CPT/HCPCS: 66991; C1783; J0697; J2250; V2632

== ENCOUNTER → 2022-12-18 | Outpatient (CLI) | payer MEDICARE, OTHER ==
[~2022-12-18] MED LIST changes: -BSS IRRIG/VANCO(10MG)/TOBRA(5MG)/EPINEPH(1:1000-0.5CC)500ML BAG-ORONLY IR ONE; -CYCLOPENTOLATE 1% OPHTH SOLN 2ML BTL OD SCH; -LIDOCAINE 3.5 % 1ML OPHTH TOPICAL GEL OU ONE; -OFLOXACIN 0.3 % (OCUFLOX) OPTH SOL 5ML OD ONE; -PHENYLEPHRINE 10% OPHTH SOL 5ML OD PRN; -PHENYLEPHRINE 2.5% OPHTH SOL 2ML OD SCH; -TROPICAMIDE 1% OPHTH SOLN 15ML OD SCH
== END ==
LOC: M WHC 10:56
PROVIDERS: ATTEND Surgery Vascular Surgery
DX: I65.23 Occlusion and stenosis of bilateral carotid arteries (principal)

== ENCOUNTER → 2023-01-28 | Outpatient (CLI) | payer MEDICARE, OTHER ==
[2023-01-28 12:50] LABS: BASO # 0.1 10^3/uL (0.0-0.2); BASO % 0.8 % (0.0-1.0); EOS # 0.2 10^3/uL (0.0-0.5); EOS % 2.3 % (0.0-3.0); HEMOGLOBIN 13.7 g/dl (13.5-17.5); LYMPH # 1.8 10^3/uL (1.5-5.0); LYMPH % 23.1 % (24.0-44.0); MEAN CORPUSCULAR HEMOGLOBIN 31.4 pg (27.0-33.0); MEAN CORPUSCULAR HGB CONC 31.9 g/dl (32.0-36.5); MEAN CORPUSCULAR VOLUME 98.6 fl (80.0-96.0); MONO # 0.9 10^3/uL (0.0-0.8); MONO % 11.3 % (2.0-8.0); NEUTROPHILS # 4.9 10^3/uL (1.5-8.5); NEUTROPHILS % 62.1 % (36.0-66.0); PLATELET COUNT, AUTOMATED 172 10^3/uL (150-450); RED BLOOD COUNT 4.36 10^6/uL (4.30-6.10); WHITE BLOOD COUNT 7.9 10^3/uL (4.0-10.0)
[2023-01-28 12:54] LABS: ALBUMIN 3.3 G/DL (3.2-5.2); ALKALINE PHOSPHATASE 119 U/L (46-116); ALT/SGPT 18 U/L (7.0-40); AST/SGOT 23 U/L (<34); BILIRUBIN,TOTAL 0.4 MG/DL (0.3-1.2); BLOOD UREA NITROGEN 12 MG/DL (9-23); CARBON DIOXIDE LEVEL 35 MMOL/L (20-31); CHLORIDE LEVEL 102 MMOL/L (98-107); CHOLESTEROL LEVEL 178 MG/DL (<200); CHOLESTEROL RISK RATIO 4.64 (<5); CREATININE FOR GFR 0.99 MG/DL (0.70-1.30); GLOMERULAR FILTRATION RATE > 60.0 (>35); GLUCOSE, FASTING 87 MG/DL (74-106); HDL CHOLESTEROL 38.3 MG/DL (>40); LDL CHOLESTEROL 101.1 MG/DL (<100); NON-HDL-C 139.7 MG/DL; POTASSIUM SERUM 4.3 MMOL/L (3.5-5.1); SODIUM LEVEL 142 MMOL/L (136-145); TRIGLYCERIDES LEVEL 193 MG/DL (<150)
== END ==
LOC: M WUC 10:18
PROVIDERS: ATTEND Family Medicine
DX: I10 Essential (primary) hypertension (principal)

== ENCOUNTER 2023-03-06 19:03 | Emergency (ER) | payer MEDICARE, OTHER ==
[~2023-03-06] VITALS: Ht 177.8 cm; Wt 84.1 kg
[2023-03-06 19:04] VITALS: TEMP 98.7
[2023-03-06 20:55] LABS: BASO # 0.1 10^3/uL (0.0-0.2); BASO % 0.4 % (0.0-1.0); EOS # 0.1 10^3/uL (0.0-0.5); EOS % 0.9 % (0.0-3.0); HEMOGLOBIN 14.8 g/dl (13.5-17.5); LYMPH # 2.3 10^3/uL (1.5-5.0); MEAN CORPUSCULAR HGB CONC 31.5 g/dl (32.0-36.5); MEAN CORPUSCULAR VOLUME 98.3 fl (80.0-96.0); MONO # 1.5 10^3/uL (0.0-0.8); MONO % 11.2 % (2.0-8.0); NEUTROPHILS # 9.6 10^3/uL (1.5-8.5); NEUTROPHILS % 70.2 % (36.0-66.0); PLATELET COUNT, AUTOMATED 231 10^3/uL (150-450); RED BLOOD COUNT 4.78 10^6/uL (4.30-6.10); WHITE BLOOD COUNT 13.7 10^3/uL (4.0-10.0)
[2023-03-06 21:12] LABS: LIPASE 48 U/L (12-53)
[2023-03-06 21:15] LABS: ALBUMIN 3.1 G/DL (3.2-5.2); ALKALINE PHOSPHATASE 123 U/L (46-116); ALT/SGPT 20 U/L (7.0-40); AST/SGOT 34 U/L (<34); BILIRUBIN,DIRECT 0.2 MG/DL (<0.4); BILIRUBIN,TOTAL 0.4 MG/DL (0.3-1.2); BLOOD UREA NITROGEN 19 MG/DL (9-23); CALCIUM LEVEL 8.7 MG/DL (8.3-10.6); CARBON DIOXIDE LEVEL 28 MMOL/L (20-31); CHLORIDE LEVEL 102 MMOL/L (98-107); CREATININE FOR GFR 0.96 MG/DL (0.70-1.30); GLOMERULAR FILTRATION RATE > 60.0 (>35); GLUCOSE, FASTING 124 MG/DL (74-106); POTASSIUM SERUM 3.9 MMOL/L (3.5-5.1); SODIUM LEVEL 141 MMOL/L (136-145); TOTAL PROTEIN 6.7 G/DL (5.7-8.2)
[2023-03-06 22:54] LABS: APPEARANCE, URINE CLEAR (CLEAR); BACTERIA, URINE AUTO NEGATIVE (NEGATIVE); BILIRUBIN, URINE AUTO NEGATIVE (NEGATIVE); BLOOD, URINE BLOOD NEGATIVE (NEGATIVE); COLOR, URINE AMBER (YELLOW); GLUCOSE, URINE (UA) AUTO NEGATIVE (NEGATIVE); KETONE, URINE AUTO NEGATIVE (NEGATIVE); LEUKOCYTE ESTERASE, URINE AUTO NEGATIVE (NEGATIVE); MUCUS, URINE SMALL (NEGATIVE); NITRITE, URINE AUTO NEGATIVE (NEGATIVE); PROTEIN, URINE AUTO NEGATIVE (NEGATIVE); RBC, URINE AUTO 1 /HPF (0-3); SPECIFIC GRAVITY URINE AUTO 1.024 (1.002-1.035); SQUAMOUS EPITHELIAL CELL UR AU 0 /HPF (0-6); UROBILINOGEN, URINE AUTO 0.2 mg/dL (0.0-2.0); WBC, URINE AUTO 0 /HPF (0-3)
[2023-03-07 01:30] VITALS: BP 164/73
[2023-03-07 01:33] VITALS: O2SAT 97
== END 2023-03-07 02:16 | disposition left against medical advice (07) ==
LOC: M ED 19:03
DX: R31.9 Hematuria, unspecified (principal); I44.4 Left anterior fascicular block; E78.5 Hyperlipidemia, unspecified; I10 Essential (primary) hypertension; Z86.79 Personal history of other diseases of the circulatory system; Z79.891 Long term (current) use of opiate analgesic; Z79.810 Long term (current) use of selective estrogen receptor modulators (SERMs); Z79.899 Other long term (current) drug therapy; Z53.9 Procedure and treatment not carried out, unspecified reason

== ENCOUNTER → 2023-05-06 | Outpatient (CLI) | payer MEDICARE, OTHER ==
[~2023-05-06] MED LIST changes: -GABA-283 PO; +GABA-284 PO
== END ==
LOC: M RAD 13:33
PROVIDERS: ATTEND Physician Assistant
DX: L89.620 Pressure ulcer of left heel, unstageable (principal)

== ENCOUNTER 2023-05-16 12:51 | Inpatient (IN) | payer MEDICARE, OTHER ==
[~2023-05-16] VITALS: Ht 170.2 cm; Wt 70.3 kg
[~2023-05-16 12:51] MED LIST changes: -TRAV2.5D; +TRAV2.5D OU
[2023-05-16 14:24] LABS: BASO # 0.1 10^3/uL (0.0-0.2); BASO % 0.4 % (0.0-1.0); EOS % 0.2 % (0.0-3.0); HEMATOCRIT 38.7 % (42.0-52.0); HEMOGLOBIN 12.1 g/dl (13.5-17.5); LYMPH # 2.5 10^3/uL (1.5-5.0); LYMPH % 12.6 % (24.0-44.0); MEAN CORPUSCULAR HGB CONC 31.3 g/dl (32.0-36.5); MONO # 1.4 10^3/uL (0.0-0.8); MONO % 7.2 % (2.0-8.0); NEUTROPHILS # 15.4 10^3/uL (1.5-8.5); PLATELET COUNT, AUTOMATED 346 10^3/uL (150-450); RED BLOOD COUNT 4.03 10^6/uL (4.30-6.10); WHITE BLOOD COUNT 19.5 10^3/uL (4.0-10.0)
[2023-05-16 14:50] LABS: CPK CREATINE PHOSPHOKINASE 129 U/L (46-171)
[2023-05-16 14:51] LABS: ALBUMIN 2.2 G/DL (3.2-5.2); ALKALINE PHOSPHATASE 123 U/L (46-116); ALT/SGPT 33 U/L (7.0-40); AST/SGOT 47 U/L (<34); BILIRUBIN,DIRECT 0.4 MG/DL (<0.4); BILIRUBIN,TOTAL 0.7 MG/DL (0.3-1.2); BLOOD UREA NITROGEN 18 MG/DL (9-23); CALCIUM LEVEL 8.7 MG/DL (8.3-10.6); CARBON DIOXIDE LEVEL 30 MMOL/L (20-31); CHLORIDE LEVEL 102 MMOL/L (98-107); CK-MB VALUE MASS < 1.0 NG/ML (<3.6); CREATININE FOR GFR 0.97 MG/DL (0.70-1.30); GLOMERULAR FILTRATION RATE > 60.0 (>35); GLUCOSE, FASTING 120 MG/DL (74-106); MB/CK RELATIVE INDEX 0.77 (< OR =4); POTASSIUM SERUM 4.2 MMOL/L (3.5-5.1); SODIUM LEVEL 141 MMOL/L (136-145); TOTAL PROTEIN 6.2 G/DL (5.7-8.2)
[2023-05-16 15:00] LABS: RSV AMPLIFICATION NEGATIVE (NEGATIVE)
[2023-05-16] MEDS ORDERED: CEFTAROLINE FOSAMIL 600 MG in D5W MINI-BAG PLUS 50 ML IV ONE (16:05)
[2023-05-16 16:47] LABS: CK-MB VALUE MASS < 1.0 NG/ML (<3.6)
[2023-05-16 16:50] LABS: CPK CREATINE PHOSPHOKINASE 162 U/L (46-171); MB/CK RELATIVE INDEX 0.61 (< OR =4)
[2023-05-16] MEDS ORDERED: HOME MED LIST COMPLETE! XX SCH (18:10)
[2023-05-16] MEDS ORDERED: NORCO, ANEXSIA 5/325MG TABLET (HYDROcodone/ACETAMINOPHEN) PO PRN (20:15)
[2023-05-16] MEDS ORDERED: ONDANSETRON 4MG 2ML VIAL IV PRN (20:15)
[2023-05-16] MEDS ORDERED: ACETAMINOPHEN TAB 650MG DOSE (2X325MG) PO PRN (20:15)
[2023-05-16] MEDS ORDERED: cefTRIAXone SOD 2 GM in D5W MINI-BAG PLUS 50 ML IV SCH (20:20)
[2023-05-16] MEDS ORDERED: NS 1,000 ML IV ONE (20:20)
[2023-05-16] MEDS ORDERED: VANCOMYCIN HCL 1,000 MG, VIAL MATE ADAPTER 1 EACH in D5W 250 ML IV SCH (20:20)
[2023-05-16] MEDS ORDERED: HEPARIN SOD (PORCINE) 5000UNITS/ML 1ML VIAL/SYRINGE SC SCH (21:00)
[2023-05-16] MEDS: GABAPENTIN 300 MG CAP PO SCH (21:00)
[2023-05-16] MEDS ORDERED: amLODIPine 5 MG TAB PO ONE (22:00)
[2023-05-16 22:27] LABS: ERYTHROCYTE SEDIMENTATION RATE 86 mm/hr (0-20)
[2023-05-16 22:32] LABS: PROCALCITONIN 0.33 ng/ml
[2023-05-16] MEDS ORDERED: VANCOMYCIN HCL 500 MG in D5W MINI-BAG PLUS 100 ML IV ONE (23:00)
[2023-05-16] MEDS ORDERED: VANCOMYCIN HCL 750 MG, VIAL MATE ADAPTER 1 EACH in D5W 250 ML IV ONE (23:00)
[2023-05-16 23:16] VITALS: BP 179/72; TEMP 97.3; O2SAT 93
[2023-05-16] MEDS: PIPERACILLIN/TAZOBACTAM SOD 3.375 GM in D5W MINI-BAG PLUS 50 ML IV SCH (23:35)
[2023-05-16] MEDS: carBAMazepine XR 200 MG TAB PO SCH (23:45)
[2023-05-17] VITALS (8 sets, daily range): BP systolic 124–167; BP diastolic 42–62; TEMP 97.2–97.3; O2SAT 92–98
[2023-05-17] MEDS: PIPERACILLIN/TAZOBACTAM SOD 3.375 GM in D5W MINI-BAG PLUS 50 ML IV SCH ×4 (03:24→22:09)
[2023-05-17] MEDS ORDERED: CEFTAROLINE FOSAMIL 600 MG in D5W MINI-BAG PLUS 50 ML IV SCH (04:00)
[2023-05-17 06:23] LABS: BASO # 0.1 10^3/uL (0.0-0.2); BASO % 0.5 % (0.0-1.0); EOS # 0.3 10^3/uL (0.0-0.5); EOS % 2.3 % (0.0-3.0); HEMATOCRIT 33.7 % (42.0-52.0); HEMOGLOBIN 10.4 g/dl (13.5-17.5); LYMPH # 1.7 10^3/uL (1.5-5.0); LYMPH % 14.7 % (24.0-44.0); MEAN CORPUSCULAR HEMOGLOBIN 29.5 pg (27.0-33.0); MEAN CORPUSCULAR HGB CONC 30.9 g/dl (32.0-36.5); MEAN CORPUSCULAR VOLUME 95.7 fl (80.0-96.0); MONO # 1.1 10^3/uL (0.0-0.8); MONO % 9.7 % (2.0-8.0); NEUTROPHILS # 8.1 10^3/uL (1.5-8.5); NEUTROPHILS % 72.1 % (36.0-66.0); RED BLOOD COUNT 3.52 10^6/uL (4.30-6.10); WHITE BLOOD COUNT 11.3 10^3/uL (4.0-10.0)
[2023-05-17 06:38] LABS: BLOOD UREA NITROGEN 17 MG/DL (9-23); CARBON DIOXIDE LEVEL 28 MMOL/L (20-31); CHLORIDE LEVEL 104 MMOL/L (98-107); CREATININE FOR GFR 0.83 MG/DL (0.70-1.30); GLOMERULAR FILTRATION RATE > 60.0 (>35); GLUCOSE, FASTING 110 MG/DL (74-106); POTASSIUM SERUM 3.6 MMOL/L (3.5-5.1); SODIUM LEVEL 140 MMOL/L (136-145)
[2023-05-17 06:42] LABS: INR 1.49; PROTHROMBIN TIME 17.6 SECONDS (12.5-14.5)
[2023-05-17 06:43] LABS: PARTIAL THROMBOPLASTIN TIME 39.5 SECONDS (24.8-34.2)
[2023-05-17 06:50] LABS: PLATELET COUNT, AUTOMATED 235 10^3/uL (150-450)
[2023-05-17] MEDS: VANCOMYCIN HCL 1,000 MG, VIAL MATE ADAPTER 1 EACH in D5W 250 ML IV SCH ×2 (08:15→20:06)
[2023-05-17] MEDS: ATORVASTATIN 10 MG TAB PO SCH (08:19)
[2023-05-17] MEDS: carBAMazepine XR 200 MG TAB PO SCH ×2 (08:19→20:09)
[2023-05-17] MEDS: ASPIRIN 81MG ENTERIC TABLET PO SCH (08:19)
[2023-05-17] MEDS: CLOPIDOGREL 75 MG TAB PO SCH (08:19)
[2023-05-17] MEDS: CETIRIZINE (ZyrTEC) 10 MG TAB PO SCH (08:20)
[2023-05-17] MEDS: METOPROLOL SUCC (TopROL XL) 100MG *XL* TAB PO SCH (08:20)
[2023-05-17] MEDS: amLODIPine 5 MG TAB PO SCH (08:20)
[2023-05-17] MEDS: GABAPENTIN 300 MG CAP PO SCH ×2 (08:21→20:09)
[2023-05-17] MEDS: OCUVITE 1 TAB PO SCH (08:25)
[2023-05-17] MEDS ORDERED: fentaNYL 100 MCG/2 ML INJECTION As Ordered ONE (13:46)
[2023-05-17] MEDS ORDERED: LIDOCAINE 2% 100MG/5ML SDV (FOR ANES.) As Ordered ONE (13:46)
[2023-05-17] MEDS ORDERED: propofoL 200 MG/20 ML VIAL As Ordered ONE (13:46)
[2023-05-17] MEDS ORDERED: SUGAMMADEX SODIUM 500 MG/5 ML VIAL (BRIDION) As Ordered ONE (13:47)
[2023-05-17] MEDS ORDERED: ONDANSETRON 4MG 2ML VIAL As Ordered ONE (13:47)
[2023-05-17] MEDS ORDERED: ROCURONIUM BROMIDE 50MG/5ML VIAL As Ordered ONE (13:47)
[2023-05-17] MEDS ORDERED: LIDOCAINE W/EPINEPHRINE 1% 20ML VIAL As Ordered ONE (13:53)
[2023-05-17] MEDS ORDERED: ePHEDrine SULFATE 25 MG/5 ML(5MG/ML) SYRINGE As Ordered ONE (14:27)
[2023-05-18 00:45] VITALS: BP 153/63; TEMP 97.5; O2SAT 93
[2023-05-18] MEDS: PIPERACILLIN/TAZOBACTAM SOD 3.375 GM in D5W MINI-BAG PLUS 50 ML IV SCH ×4 (03:57→20:33)
[2023-05-18 04:45] VITALS: BP_SYST 130; BP_DIAS 53; BP_DIAS 59; TEMP 97.3; TEMP 97.5; O2SAT 96; O2SAT 97
[2023-05-18 06:00] LABS: BASO % 0.5 % (0.0-1.0); EOS # 0.3 10^3/uL (0.0-0.5); EOS % 3.7 % (0.0-3.0); HEMATOCRIT 31.2 % (42.0-52.0); HEMOGLOBIN 9.8 g/dl (13.5-17.5); LYMPH # 1.4 10^3/uL (1.5-5.0); LYMPH % 17.6 % (24.0-44.0); MEAN CORPUSCULAR HEMOGLOBIN 29.9 pg (27.0-33.0); MEAN CORPUSCULAR HGB CONC 31.4 g/dl (32.0-36.5); MEAN CORPUSCULAR VOLUME 95.1 fl (80.0-96.0); MONO # 0.8 10^3/uL (0.0-0.8); MONO % 9.9 % (2.0-8.0); NEUTROPHILS # 5.5 10^3/uL (1.5-8.5); NEUTROPHILS % 67.8 % (36.0-66.0); PLATELET COUNT, AUTOMATED 217 10^3/uL (150-450); RED BLOOD COUNT 3.28 10^6/uL (4.30-6.10); WHITE BLOOD COUNT 8.1 10^3/uL (4.0-10.0)
[2023-05-18] MEDS: ASPIRIN 81MG ENTERIC TABLET PO SCH (08:09)
[2023-05-18] MEDS: OCUVITE 1 TAB PO SCH (08:09)
[2023-05-18] MEDS: carBAMazepine XR 200 MG TAB PO SCH ×2 (08:09→20:34)
[2023-05-18] MEDS: ATORVASTATIN 10 MG TAB PO SCH (08:09)
[2023-05-18] MEDS: CLOPIDOGREL 75 MG TAB PO SCH (08:10)
[2023-05-18] MEDS: METOPROLOL SUCC (TopROL XL) 100MG *XL* TAB PO SCH (08:10)
[2023-05-18] MEDS: CETIRIZINE (ZyrTEC) 10 MG TAB PO SCH (08:10)
[2023-05-18] MEDS: amLODIPine 5 MG TAB PO SCH (08:10)
[2023-05-18] MEDS: GABAPENTIN 300 MG CAP PO SCH ×2 (08:10→20:34)
[2023-05-18] MEDS: VANCOMYCIN HCL 1,000 MG, VIAL MATE ADAPTER 1 EACH in D5W 250 ML IV SCH (08:11)
[2023-05-18 08:45] VITALS: BP 127/53; TEMP 97.2; O2SAT 93
[2023-05-18 10:36] LABS: BLOOD UREA NITROGEN 12 MG/DL (9-23); CALCIUM LEVEL 7.8 MG/DL (8.3-10.6); CARBON DIOXIDE LEVEL 29 MMOL/L (20-31); CHLORIDE LEVEL 103 MMOL/L (98-107); CREATININE FOR GFR 0.88 MG/DL (0.70-1.30); GLOMERULAR FILTRATION RATE > 60.0 (>35); GLUCOSE, FASTING 102 MG/DL (74-106); POTASSIUM SERUM 3.8 MMOL/L (3.5-5.1); SODIUM LEVEL 138 MMOL/L (136-145)
[2023-05-18 12:45] VITALS: BP 128/55; TEMP 97.5; O2SAT 94
[2023-05-18 19:19] VITALS: BP 156/60; TEMP 97.5; O2SAT 94
[2023-05-18] MEDS ORDERED: VANCOMYCIN HCL 750 MG, VIAL MATE ADAPTER 1 EACH in D5W 250 ML IV SCH (22:00)
[2023-05-18] MEDS ORDERED: VANCOMYCIN HCL 500 MG in D5W MINI-BAG PLUS 100 ML IV SCH (23:00)
[2023-05-19] VITALS (8 sets, daily range): BP systolic 116–160; BP diastolic 44–70; TEMP 97.2–97.9; O2SAT 91–96
[2023-05-19] MEDS: PIPERACILLIN/TAZOBACTAM SOD 3.375 GM in D5W MINI-BAG PLUS 50 ML IV SCH ×4 (04:52→21:12)
[2023-05-19 06:17] LABS: BASO % 0.4 % (0.0-1.0); EOS # 0.2 10^3/uL (0.0-0.5); EOS % 2.6 % (0.0-3.0); HEMATOCRIT 31.6 % (42.0-52.0); HEMOGLOBIN 10.2 g/dl (13.5-17.5); LYMPH # 1.4 10^3/uL (1.5-5.0); LYMPH % 17.8 % (24.0-44.0); MEAN CORPUSCULAR HEMOGLOBIN 30.4 pg (27.0-33.0); MEAN CORPUSCULAR HGB CONC 32.3 g/dl (32.0-36.5); MEAN CORPUSCULAR VOLUME 94.3 fl (80.0-96.0); MONO # 0.8 10^3/uL (0.0-0.8); MONO % 9.5 % (2.0-8.0); NEUTROPHILS # 5.6 10^3/uL (1.5-8.5); NEUTROPHILS % 69.1 % (36.0-66.0); PLATELET COUNT, AUTOMATED 236 10^3/uL (150-450); RED BLOOD COUNT 3.35 10^6/uL (4.30-6.10); WHITE BLOOD COUNT 8.1 10^3/uL (4.0-10.0)
[2023-05-19 07:10] LABS: ALBUMIN 1.7 G/DL (3.2-5.2); ALKALINE PHOSPHATASE 86 U/L (46-116); ALT/SGPT 27 U/L (7.0-40); AST/SGOT 39 U/L (<34); BILIRUBIN,TOTAL 0.3 MG/DL (0.3-1.2); BLOOD UREA NITROGEN 10 MG/DL (9-23); CALCIUM LEVEL 8.1 MG/DL (8.3-10.6); CARBON DIOXIDE LEVEL 29 MMOL/L (20-31); CHLORIDE LEVEL 102 MMOL/L (98-107); CREATININE FOR GFR 0.85 MG/DL (0.70-1.30); GLOMERULAR FILTRATION RATE > 60.0 (>35); GLUCOSE, FASTING 96 MG/DL (74-106); MAGNESIUM LEVEL 1.8 MG/DL (1.8-2.4); POTASSIUM SERUM 3.8 MMOL/L (3.5-5.1); SODIUM LEVEL 137 MMOL/L (136-145)
[2023-05-19] MEDS: carBAMazepine XR 200 MG TAB PO SCH ×2 (08:28→21:11)
[2023-05-19] MEDS: ASPIRIN 81MG ENTERIC TABLET PO SCH (08:28)
[2023-05-19] MEDS: GABAPENTIN 300 MG CAP PO SCH ×2 (08:29→21:11)
[2023-05-19] MEDS: ATORVASTATIN 10 MG TAB PO SCH (08:31)
[2023-05-19] MEDS: CETIRIZINE (ZyrTEC) 10 MG TAB PO SCH (08:31)
[2023-05-19] MEDS: METOPROLOL SUCC (TopROL XL) 100MG *XL* TAB PO SCH (08:31)
[2023-05-19] MEDS: amLODIPine 5 MG TAB PO SCH (08:32)
[2023-05-19] MEDS: OCUVITE 1 TAB PO SCH (08:41)
[2023-05-19] MEDS: CLOPIDOGREL 75 MG TAB PO SCH (11:05)
[2023-05-19] MEDS ORDERED: ONDANSETRON 4MG 2ML VIAL As Ordered ONE (15:57)
[2023-05-19] MEDS ORDERED: fentaNYL 100 MCG/2 ML INJECTION As Ordered ONE (15:57)
[2023-05-19] MEDS ORDERED: propofoL 200 MG/20 ML VIAL As Ordered ONE (15:57)
[2023-05-19] MEDS ORDERED: MIDAZOLAM INJ 2MG/2ML VIAL As Ordered ONE (15:57)
[2023-05-19] MEDS ORDERED: ROCURONIUM BROMIDE 50MG/5ML VIAL As Ordered ONE (15:57)
[2023-05-19] MEDS ORDERED: LIDOCAINE 2% 100MG/5ML SDV (FOR ANES.) As Ordered ONE (15:57)
[2023-05-19] MEDS ORDERED: GENTAMICIN SULF 80MG/2ML VIAL As Ordered ONE ×2 (16:27→17:27)
[2023-05-19] MEDS: LIDOCAINE 2% MDV 20ML VIAL As Ordered ONE ×2 (16:27→17:27)
[2023-05-19] MEDS ORDERED: ROPIvacaine 0.5% 30ML VIAL As Ordered ONE (16:27)
[2023-05-19] MEDS ORDERED: BACITRACIN OINTMENT 30GM TUBE As Ordered ONE (16:28)
[2023-05-19] MEDS ORDERED: TOBRAMYCIN SULF 1.2GM VIAL As Ordered ONE (16:30)
[2023-05-19] MEDS ORDERED: TOBRAMYCIN 80MG/2ML VIAL As Ordered ONE (16:31)
[2023-05-19] MEDS ORDERED: ACETAMINOPHEN 1000MG 100ML IV BAG As Ordered ONE (17:27)
[2023-05-20 00:30] VITALS: BP 130/56; TEMP 97.5; O2SAT 95
[2023-05-20] MEDS: PIPERACILLIN/TAZOBACTAM SOD 3.375 GM in D5W MINI-BAG PLUS 50 ML IV SCH ×4 (03:59→21:19)
[2023-05-20 04:30] VITALS: BP 144/68; TEMP 98.6; O2SAT 91
[2023-05-20 06:10] LABS: BASO % 0.5 % (0.0-1.0); EOS # 0.2 10^3/uL (0.0-0.5); EOS % 1.7 % (0.0-3.0); HEMATOCRIT 33.4 % (42.0-52.0); HEMOGLOBIN 10.5 g/dl (13.5-17.5); LYMPH % 11.9 % (24.0-44.0); MEAN CORPUSCULAR HGB CONC 31.4 g/dl (32.0-36.5); MEAN CORPUSCULAR VOLUME 95.4 fl (80.0-96.0); MONO # 0.8 10^3/uL (0.0-0.8); MONO % 9.5 % (2.0-8.0); NEUTROPHILS # 6.6 10^3/uL (1.5-8.5); NEUTROPHILS % 75.7 % (36.0-66.0); PLATELET COUNT, AUTOMATED 263 10^3/uL (150-450); WHITE BLOOD COUNT 8.7 10^3/uL (4.0-10.0)
[2023-05-20 06:49] LABS: ALBUMIN 1.9 G/DL (3.2-5.2); ALKALINE PHOSPHATASE 95 U/L (46-116); ALT/SGPT 27 U/L (7.0-40); AST/SGOT 39 U/L (<34); BILIRUBIN,TOTAL 0.5 MG/DL (0.3-1.2); BLOOD UREA NITROGEN 9 MG/DL (9-23); CALCIUM LEVEL 8.3 MG/DL (8.3-10.6); CARBON DIOXIDE LEVEL 32 MMOL/L (20-31); CHLORIDE LEVEL 102 MMOL/L (98-107); CREATININE FOR GFR 0.92 MG/DL (0.70-1.30); GLOMERULAR FILTRATION RATE > 60.0 (>35); GLUCOSE, FASTING 114 MG/DL (74-106); MAGNESIUM LEVEL 1.6 MG/DL (1.8-2.4); POTASSIUM SERUM 4.1 MMOL/L (3.5-5.1); SODIUM LEVEL 139 MMOL/L (136-145); TOTAL PROTEIN 5.1 G/DL (5.7-8.2)
[2023-05-20] MEDS: CLOPIDOGREL 75 MG TAB PO SCH (09:13)
[2023-05-20] MEDS: METOPROLOL SUCC (TopROL XL) 100MG *XL* TAB PO SCH (09:13)
[2023-05-20] MEDS: GABAPENTIN 300 MG CAP PO SCH ×2 (09:13→21:19)
[2023-05-20] MEDS: ASPIRIN 81MG ENTERIC TABLET PO SCH (09:13)
[2023-05-20] MEDS: OCUVITE 1 TAB PO SCH (09:13)
[2023-05-20] MEDS: ATORVASTATIN 10 MG TAB PO SCH (09:14)
[2023-05-20] MEDS: MAGNESIUM OXIDE 400MG TAB (MAG-OX) PO SCH (09:14)
[2023-05-20] MEDS: carBAMazepine XR 200 MG TAB PO SCH ×2 (09:14→21:19)
[2023-05-20] MEDS: amLODIPine 5 MG TAB PO SCH (09:14)
[2023-05-20] MEDS: CETIRIZINE (ZyrTEC) 10 MG TAB PO SCH (09:14)
[2023-05-20 10:00] VITALS: BP 120/52; TEMP 97.5; O2SAT 95
[2023-05-20 14:00] VITALS: BP 134/59; TEMP 97.5; O2SAT 93
[2023-05-20 18:00] VITALS: BP 135/58; TEMP 97.5; O2SAT 94
[2023-05-20 21:05] VITALS: BP 128/49; TEMP 97.3; O2SAT 94
[2023-05-21] MEDS: PIPERACILLIN/TAZOBACTAM SOD 3.375 GM in D5W MINI-BAG PLUS 50 ML IV SCH ×4 (04:00→21:10)
[2023-05-21 05:12] VITALS: BP 146/54; TEMP 97.5; O2SAT 92
[2023-05-21 06:09] LABS: BASO # 0.1 10^3/uL (0.0-0.2); BASO % 0.5 % (0.0-1.0); EOS # 0.2 10^3/uL (0.0-0.5); EOS % 2.1 % (0.0-3.0); HEMATOCRIT 31.1 % (42.0-52.0); HEMOGLOBIN 9.8 g/dl (13.5-17.5); LYMPH # 1.7 10^3/uL (1.5-5.0); LYMPH % 16.9 % (24.0-44.0); MEAN CORPUSCULAR HEMOGLOBIN 29.7 pg (27.0-33.0); MEAN CORPUSCULAR HGB CONC 31.5 g/dl (32.0-36.5); MEAN CORPUSCULAR VOLUME 94.2 fl (80.0-96.0); MONO # 1.1 10^3/uL (0.0-0.8); MONO % 11.2 % (2.0-8.0); NEUTROPHILS # 6.9 10^3/uL (1.5-8.5); NEUTROPHILS % 68.7 % (36.0-66.0); PLATELET COUNT, AUTOMATED 251 10^3/uL (150-450)
[2023-05-21 06:31] LABS: ALBUMIN 1.7 G/DL (3.2-5.2); ALKALINE PHOSPHATASE 87 U/L (46-116); ALT/SGPT 26 U/L (7.0-40); AST/SGOT 43 U/L (<34); BILIRUBIN,TOTAL 0.5 MG/DL (0.3-1.2); BLOOD UREA NITROGEN 10 MG/DL (9-23); CALCIUM LEVEL 8.1 MG/DL (8.3-10.6); CARBON DIOXIDE LEVEL 30 MMOL/L (20-31); CHLORIDE LEVEL 102 MMOL/L (98-107); CREATININE FOR GFR 0.97 MG/DL (0.70-1.30); GLOMERULAR FILTRATION RATE > 60.0 (>35); GLUCOSE, FASTING 105 MG/DL (74-106); MAGNESIUM LEVEL 1.6 MG/DL (1.8-2.4); POTASSIUM SERUM 3.7 MMOL/L (3.5-5.1); SODIUM LEVEL 138 MMOL/L (136-145); TOTAL PROTEIN 4.9 G/DL (5.7-8.2)
[2023-05-21] MEDS: GABAPENTIN 300 MG CAP PO SCH ×2 (08:38→21:10)
[2023-05-21] MEDS: amLODIPine 5 MG TAB PO SCH (08:39)
[2023-05-21] MEDS: CLOPIDOGREL 75 MG TAB PO SCH (08:40)
[2023-05-21] MEDS: METOPROLOL SUCC (TopROL XL) 100MG *XL* TAB PO SCH (08:40)
[2023-05-21] MEDS: ASPIRIN 81MG ENTERIC TABLET PO SCH (08:40)
[2023-05-21] MEDS: ATORVASTATIN 10 MG TAB PO SCH (08:40)
[2023-05-21] MEDS: CETIRIZINE (ZyrTEC) 10 MG TAB PO SCH (08:41)
[2023-05-21] MEDS: MAGNESIUM OXIDE 400MG TAB (MAG-OX) PO SCH (08:41)
[2023-05-21] MEDS: carBAMazepine XR 200 MG TAB PO SCH ×2 (08:41→21:10)
[2023-05-21] MEDS: OCUVITE 1 TAB PO SCH (10:03)
[2023-05-21 14:00] VITALS: BP 131/54; TEMP 97.2; O2SAT 92
[2023-05-22] MEDS: PIPERACILLIN/TAZOBACTAM SOD 3.375 GM in D5W MINI-BAG PLUS 50 ML IV SCH ×4 (04:04→21:39)
[2023-05-22 06:00] VITALS: BP 141/65; TEMP 97.5; O2SAT 93
[2023-05-22 06:12] LABS: BASO # 0.1 10^3/uL (0.0-0.2); BASO % 0.7 % (0.0-1.0); EOS # 0.2 10^3/uL (0.0-0.5); EOS % 2.7 % (0.0-3.0); HEMATOCRIT 30.4 % (42.0-52.0); HEMOGLOBIN 9.6 g/dl (13.5-17.5); LYMPH # 1.9 10^3/uL (1.5-5.0); LYMPH % 21.3 % (24.0-44.0); MEAN CORPUSCULAR HEMOGLOBIN 29.6 pg (27.0-33.0); MEAN CORPUSCULAR HGB CONC 31.6 g/dl (32.0-36.5); MEAN CORPUSCULAR VOLUME 93.8 fl (80.0-96.0); MONO % 10.9 % (2.0-8.0); NEUTROPHILS # 5.8 10^3/uL (1.5-8.5); NEUTROPHILS % 63.5 % (36.0-66.0); PLATELET COUNT, AUTOMATED 268 10^3/uL (150-450); RED BLOOD COUNT 3.24 10^6/uL (4.30-6.10)
[2023-05-22 06:28] LABS: ALBUMIN 1.7 G/DL (3.2-5.2); ALKALINE PHOSPHATASE 87 U/L (46-116); ALT/SGPT 32 U/L (7.0-40); AST/SGOT 55 U/L (<34); BILIRUBIN,TOTAL 0.4 MG/DL (0.3-1.2); BLOOD UREA NITROGEN 12 MG/DL (9-23); CARBON DIOXIDE LEVEL 30 MMOL/L (20-31); CHLORIDE LEVEL 103 MMOL/L (98-107); CREATININE FOR GFR 0.95 MG/DL (0.70-1.30); GLOMERULAR FILTRATION RATE > 60.0 (>35); GLUCOSE, FASTING 107 MG/DL (74-106); MAGNESIUM LEVEL 1.7 MG/DL (1.8-2.4); POTASSIUM SERUM 3.5 MMOL/L (3.5-5.1); SODIUM LEVEL 141 MMOL/L (136-145); TOTAL PROTEIN 4.8 G/DL (5.7-8.2)
[2023-05-22] MEDS: ASPIRIN 81MG ENTERIC TABLET PO SCH (09:48)
[2023-05-22] MEDS: OCUVITE 1 TAB PO SCH (09:48)
[2023-05-22] MEDS: GABAPENTIN 300 MG CAP PO SCH ×2 (09:49→21:39)
[2023-05-22] MEDS: CETIRIZINE (ZyrTEC) 10 MG TAB PO SCH (09:49)
[2023-05-22] MEDS: carBAMazepine XR 200 MG TAB PO SCH ×2 (09:49→21:39)
[2023-05-22] MEDS: ATORVASTATIN 10 MG TAB PO SCH (09:49)
[2023-05-22] MEDS: CLOPIDOGREL 75 MG TAB PO SCH (09:49)
[2023-05-22] MEDS: MAGNESIUM OXIDE 400MG TAB (MAG-OX) PO SCH (09:49)
[2023-05-22] MEDS: amLODIPine 5 MG TAB PO SCH (09:50)
[2023-05-22] MEDS: METOPROLOL SUCC (TopROL XL) 100MG *XL* TAB PO SCH (09:50)
[2023-05-22 14:00] VITALS: BP 156/62; TEMP 97.7; O2SAT 96
[2023-05-22] MEDS: TAMSULOSIN 0.4 MG CAP PO SCH (15:14)
[2023-05-22 20:50] VITALS: BP 150/55; TEMP 97.5; O2SAT 96
[2023-05-23] MEDS: PIPERACILLIN/TAZOBACTAM SOD 3.375 GM in D5W MINI-BAG PLUS 50 ML IV SCH ×4 (04:09→21:17)
[2023-05-23 05:28] VITALS: BP 136/65; TEMP 98.1; O2SAT 90
[2023-05-23 05:48] LABS: BASO # 0.1 10^3/uL (0.0-0.2); BASO % 0.6 % (0.0-1.0); EOS # 0.2 10^3/uL (0.0-0.5); EOS % 2.2 % (0.0-3.0); HEMATOCRIT 29.5 % (42.0-52.0); HEMOGLOBIN 9.4 g/dl (13.5-17.5); LYMPH # 1.7 10^3/uL (1.5-5.0); LYMPH % 19.8 % (24.0-44.0); MEAN CORPUSCULAR HGB CONC 31.9 g/dl (32.0-36.5); MEAN CORPUSCULAR VOLUME 94.2 fl (80.0-96.0); MONO % 11.4 % (2.0-8.0); NEUTROPHILS # 5.6 10^3/uL (1.5-8.5); NEUTROPHILS % 65.3 % (36.0-66.0); PLATELET COUNT, AUTOMATED 261 10^3/uL (150-450); RED BLOOD COUNT 3.13 10^6/uL (4.30-6.10); WHITE BLOOD COUNT 8.6 10^3/uL (4.0-10.0)
[2023-05-23 06:10] LABS: ALBUMIN 1.7 G/DL (3.2-5.2); ALKALINE PHOSPHATASE 78 U/L (46-116); ALT/SGPT 30 U/L (7.0-40); AST/SGOT 45 U/L (<34); BILIRUBIN,TOTAL 0.3 MG/DL (0.3-1.2); BLOOD UREA NITROGEN 11 MG/DL (9-23); CALCIUM LEVEL 7.8 MG/DL (8.3-10.6); CARBON DIOXIDE LEVEL 30 MMOL/L (20-31); CHLORIDE LEVEL 104 MMOL/L (98-107); CREATININE FOR GFR 0.84 MG/DL (0.70-1.30); GLOMERULAR FILTRATION RATE > 60.0 (>35); GLUCOSE, FASTING 102 MG/DL (74-106); MAGNESIUM LEVEL 1.7 MG/DL (1.8-2.4); POTASSIUM SERUM 3.6 MMOL/L (3.5-5.1); SODIUM LEVEL 139 MMOL/L (136-145); TOTAL PROTEIN 4.8 G/DL (5.7-8.2)
[2023-05-23] MEDS: ATORVASTATIN 10 MG TAB PO SCH (09:28)
[2023-05-23] MEDS: TAMSULOSIN 0.4 MG CAP PO SCH (09:28)
[2023-05-23] MEDS: CLOPIDOGREL 75 MG TAB PO SCH (09:28)
[2023-05-23] MEDS: GABAPENTIN 300 MG CAP PO SCH ×2 (09:28→21:17)
[2023-05-23] MEDS: ASPIRIN 81MG ENTERIC TABLET PO SCH (09:28)
[2023-05-23] MEDS: carBAMazepine XR 200 MG TAB PO SCH ×2 (09:28→21:17)
[2023-05-23] MEDS: CETIRIZINE (ZyrTEC) 10 MG TAB PO SCH (09:28)
[2023-05-23] MEDS: amLODIPine 5 MG TAB PO SCH (09:29)
[2023-05-23] MEDS: MAGNESIUM OXIDE 400MG TAB (MAG-OX) PO SCH (09:30)
[2023-05-23] MEDS: METOPROLOL SUCC (TopROL XL) 100MG *XL* TAB PO SCH (09:31)
[2023-05-23] MEDS: OCUVITE 1 TAB PO SCH (10:01)
[2023-05-23 13:37] VITALS: BP 116/43; TEMP 97.3; O2SAT 93
[2023-05-23 20:55] VITALS: BP 143/60; TEMP 97.7; O2SAT 96
[2023-05-23] MEDS: DOXYCYCLINE HYCLATE 100MG TABLET PO SCH (21:17)
[2023-05-24] MEDS: PIPERACILLIN/TAZOBACTAM SOD 3.375 GM in D5W MINI-BAG PLUS 50 ML IV SCH ×4 (04:06→21:20)
[2023-05-24 05:47] LABS: HEMATOCRIT 30.4 % (42.0-52.0); HEMOGLOBIN 9.6 g/dl (13.5-17.5); MEAN CORPUSCULAR HEMOGLOBIN 29.7 pg (27.0-33.0); MEAN CORPUSCULAR HGB CONC 31.6 g/dl (32.0-36.5); MEAN CORPUSCULAR VOLUME 94.1 fl (80.0-96.0); PLATELET COUNT, AUTOMATED 276 10^3/uL (150-450); RED BLOOD COUNT 3.23 10^6/uL (4.30-6.10); WHITE BLOOD COUNT 9.4 10^3/uL (4.0-10.0)
[2023-05-24 06:15] LABS: ALBUMIN 1.7 G/DL (3.2-5.2); ALKALINE PHOSPHATASE 81 U/L (46-116); ALT/SGPT 25 U/L (7.0-40); AST/SGOT 50 U/L (<34); BILIRUBIN,TOTAL 0.4 MG/DL (0.3-1.2); BLOOD UREA NITROGEN 9 MG/DL (9-23); CALCIUM LEVEL 7.8 MG/DL (8.3-10.6); CARBON DIOXIDE LEVEL 28 MMOL/L (20-31); CHLORIDE LEVEL 103 MMOL/L (98-107); CREATININE FOR GFR 0.92 MG/DL (0.70-1.30); GLOMERULAR FILTRATION RATE > 60.0 (>35); GLUCOSE, FASTING 104 MG/DL (74-106); MAGNESIUM LEVEL 1.7 MG/DL (1.8-2.4); POTASSIUM SERUM 3.8 MMOL/L (3.5-5.1); SODIUM LEVEL 139 MMOL/L (136-145); TOTAL PROTEIN 4.8 G/DL (5.7-8.2)
[2023-05-24 06:25] VITALS: BP 134/84; TEMP 97.9; O2SAT 94
[2023-05-24] MEDS: OCUVITE 1 TAB PO SCH (09:11)
[2023-05-24] MEDS: TAMSULOSIN 0.4 MG CAP PO SCH (09:14)
[2023-05-24] MEDS: ASPIRIN 81MG ENTERIC TABLET PO SCH (09:14)
[2023-05-24] MEDS: carBAMazepine XR 200 MG TAB PO SCH ×2 (09:14→21:27)
[2023-05-24] MEDS: GABAPENTIN 300 MG CAP PO SCH ×2 (09:14→21:27)
[2023-05-24] MEDS: CLOPIDOGREL 75 MG TAB PO SCH (09:14)
[2023-05-24] MEDS: MAGNESIUM OXIDE 400MG TAB (MAG-OX) PO SCH (09:14)
[2023-05-24] MEDS: amLODIPine 5 MG TAB PO SCH (09:14)
[2023-05-24] MEDS: DOXYCYCLINE HYCLATE 100MG TABLET PO SCH ×2 (09:14→21:27)
[2023-05-24] MEDS: CETIRIZINE (ZyrTEC) 10 MG TAB PO SCH (09:15)
[2023-05-24] MEDS: ATORVASTATIN 10 MG TAB PO SCH (09:15)
[2023-05-24] MEDS: METOPROLOL SUCC (TopROL XL) 100MG *XL* TAB PO SCH (09:16)
[2023-05-24 14:00] VITALS: BP 98/49; TEMP 97.5; O2SAT 94
[2023-05-24] MEDS ORDERED: NS 1,000 ML IV STA (15:13)
[2023-05-24 18:00] VITALS: BP 105/49; TEMP 97.7
[2023-05-24] MEDS: NS 1,000 ML IV SCH (18:39)
[2023-05-24 18:52] VITALS: BP 106/46
[2023-05-24 21:10] VITALS: BP 161/70; TEMP 97.3; O2SAT 96
[2023-05-25 00:10] VITALS: BP 124/44
[2023-05-25] MEDS: PIPERACILLIN/TAZOBACTAM SOD 3.375 GM in D5W MINI-BAG PLUS 50 ML IV SCH ×2 (03:45→11:08)
[2023-05-25 05:24] VITALS: BP_SYST 131; BP_SYST 154; BP_DIAS 56; BP_DIAS 67; TEMP 97.5; O2SAT 94
[2023-05-25 05:51] LABS: HEMATOCRIT 30.8 % (42.0-52.0); HEMOGLOBIN 9.7 g/dl (13.5-17.5); MEAN CORPUSCULAR HEMOGLOBIN 30.1 pg (27.0-33.0); MEAN CORPUSCULAR HGB CONC 31.5 g/dl (32.0-36.5); MEAN CORPUSCULAR VOLUME 95.7 fl (80.0-96.0); PLATELET COUNT, AUTOMATED 254 10^3/uL (150-450); RED BLOOD COUNT 3.22 10^6/uL (4.30-6.10); WHITE BLOOD COUNT 7.4 10^3/uL (4.0-10.0)
[2023-05-25 06:17] LABS: ALBUMIN 1.7 G/DL (3.2-5.2); ALKALINE PHOSPHATASE 76 U/L (46-116); ALT/SGPT 21 U/L (7.0-40); AST/SGOT 36 U/L (<34); BILIRUBIN,TOTAL 0.5 MG/DL (0.3-1.2); BLOOD UREA NITROGEN 11 MG/DL (9-23); CALCIUM LEVEL 7.6 MG/DL (8.3-10.6); CARBON DIOXIDE LEVEL 29 MMOL/L (20-31); CHLORIDE LEVEL 104 MMOL/L (98-107); GLOMERULAR FILTRATION RATE > 60.0 (>35); GLUCOSE, FASTING 97 MG/DL (74-106); MAGNESIUM LEVEL 1.7 MG/DL (1.8-2.4); POTASSIUM SERUM 3.6 MMOL/L (3.5-5.1); SODIUM LEVEL 138 MMOL/L (136-145); TOTAL PROTEIN 4.9 G/DL (5.7-8.2)
[2023-05-25 06:50] VITALS: BP 133/54; TEMP 97.7; O2SAT 96
[2023-05-25] MEDS: NS 1,000 ML IV SCH (10:19)
[2023-05-25] MEDS: OCUVITE 1 TAB PO SCH (11:04)
[2023-05-25] MEDS: CETIRIZINE (ZyrTEC) 10 MG TAB PO SCH (11:04)
[2023-05-25] MEDS: TAMSULOSIN 0.4 MG CAP PO SCH (11:04)
[2023-05-25] MEDS: ASPIRIN 81MG ENTERIC TABLET PO SCH (11:04)
[2023-05-25] MEDS: ATORVASTATIN 10 MG TAB PO SCH (11:05)
[2023-05-25] MEDS: DOXYCYCLINE HYCLATE 100MG TABLET PO SCH ×2 (11:05→21:09)
[2023-05-25] MEDS: CLOPIDOGREL 75 MG TAB PO SCH (11:05)
[2023-05-25] MEDS: amLODIPine 5 MG TAB PO SCH (11:06)
[2023-05-25] MEDS: METOPROLOL SUCC (TopROL XL) 100MG *XL* TAB PO SCH (11:07)
[2023-05-25] MEDS: MAGNESIUM OXIDE 400MG TAB (MAG-OX) PO SCH (11:07)
[2023-05-25] MEDS: carBAMazepine XR 200 MG TAB PO SCH ×2 (11:07→21:09)
[2023-05-25] MEDS: GABAPENTIN 300 MG CAP PO SCH ×2 (11:08→21:10)
[2023-05-25] MEDS ORDERED: MAG SULF 1GM/100ML (MAG RUN) 1 GM in IV 1 EA IV ONE (12:00)
[2023-05-25] MEDS: AUGMENTIN 875 MG TAB PO SCH ×2 (12:35→21:09)
[2023-05-26 05:40] VITALS: BP 119/47; TEMP 97.5; O2SAT 94
[2023-05-26 06:10] LABS: HEMOGLOBIN 9.4 g/dl (13.5-17.5); MEAN CORPUSCULAR HEMOGLOBIN 29.5 pg (27.0-33.0); MEAN CORPUSCULAR HGB CONC 31.3 g/dl (32.0-36.5); PLATELET COUNT, AUTOMATED 252 10^3/uL (150-450); RED BLOOD COUNT 3.19 10^6/uL (4.30-6.10); WHITE BLOOD COUNT 7.6 10^3/uL (4.0-10.0)
[2023-05-26 06:32] LABS: ALBUMIN 1.7 G/DL (3.2-5.2); ALKALINE PHOSPHATASE 78 U/L (46-116); ALT/SGPT 18 U/L (7.0-40); AST/SGOT 29 U/L (<34); BILIRUBIN,TOTAL 0.4 MG/DL (0.3-1.2); BLOOD UREA NITROGEN 9 MG/DL (9-23); CALCIUM LEVEL 8.1 MG/DL (8.3-10.6); CARBON DIOXIDE LEVEL 27 MMOL/L (20-31); CHLORIDE LEVEL 104 MMOL/L (98-107); CREATININE FOR GFR 0.74 MG/DL (0.70-1.30); GLOMERULAR FILTRATION RATE > 60.0 (>35); GLUCOSE, FASTING 91 MG/DL (74-106); MAGNESIUM LEVEL 1.7 MG/DL (1.8-2.4); POTASSIUM SERUM 3.6 MMOL/L (3.5-5.1); SODIUM LEVEL 138 MMOL/L (136-145); TOTAL PROTEIN 4.6 G/DL (5.7-8.2)
[2023-05-26] MEDS: GABAPENTIN 300 MG CAP PO SCH ×2 (09:01→19:55)
[2023-05-26] MEDS: DOXYCYCLINE HYCLATE 100MG TABLET PO SCH ×2 (09:01→19:55)
[2023-05-26] MEDS: carBAMazepine XR 200 MG TAB PO SCH ×2 (09:01→19:55)
[2023-05-26] MEDS: CLOPIDOGREL 75 MG TAB PO SCH (09:01)
[2023-05-26] MEDS: ASPIRIN 81MG ENTERIC TABLET PO SCH (09:02)
[2023-05-26] MEDS: TAMSULOSIN 0.4 MG CAP PO SCH (09:02)
[2023-05-26] MEDS: AUGMENTIN 875 MG TAB PO SCH ×2 (09:02→19:55)
[2023-05-26] MEDS: MAGNESIUM OXIDE 400MG TAB (MAG-OX) PO SCH (09:02)
[2023-05-26] MEDS: OCUVITE 1 TAB PO SCH (09:02)
[2023-05-26] MEDS: CETIRIZINE (ZyrTEC) 10 MG TAB PO SCH (09:03)
[2023-05-26] MEDS: amLODIPine 5 MG TAB PO SCH (09:03)
[2023-05-26] MEDS: ATORVASTATIN 10 MG TAB PO SCH (09:03)
[2023-05-26] MEDS: METOPROLOL SUCC (TopROL XL) 100MG *XL* TAB PO SCH (09:03)
[2023-05-27 05:43] VITALS: BP 143/52; TEMP 97.7; O2SAT 95
[2023-05-27 08:00] VITALS: BP 122/80; TEMP 98.5; O2SAT 98
[2023-05-27] MEDS: METOPROLOL SUCC (TopROL XL) 100MG *XL* TAB PO SCH ×2 (09:00→09:36)
[2023-05-27] MEDS: amLODIPine 5 MG TAB PO SCH ×2 (09:00→09:35)
[2023-05-27 09:18] VITALS: BP 116/62
[2023-05-27] MEDS: OCUVITE 1 TAB PO SCH (09:32)
[2023-05-27] MEDS: carBAMazepine XR 200 MG TAB PO SCH ×2 (09:32→20:15)
[2023-05-27] MEDS: GABAPENTIN 300 MG CAP PO SCH ×2 (09:33→20:15)
[2023-05-27] MEDS: ASPIRIN 81MG ENTERIC TABLET PO SCH (09:33)
[2023-05-27] MEDS: ATORVASTATIN 10 MG TAB PO SCH (09:33)
[2023-05-27] MEDS: AUGMENTIN 875 MG TAB PO SCH ×2 (09:33→20:15)
[2023-05-27] MEDS: TAMSULOSIN 0.4 MG CAP PO SCH (09:33)
[2023-05-27] MEDS: CETIRIZINE (ZyrTEC) 10 MG TAB PO SCH (09:34)
[2023-05-27] MEDS: CLOPIDOGREL 75 MG TAB PO SCH (09:34)
[2023-05-27] MEDS: MAGNESIUM OXIDE 400MG TAB (MAG-OX) PO SCH (09:34)
[2023-05-27] MEDS: DOXYCYCLINE HYCLATE 100MG TABLET PO SCH ×2 (09:34→20:15)
[2023-05-28 06:00] VITALS: BP 129/65; TEMP 98.6; O2SAT 95
[2023-05-28 08:54] VITALS: BP 143/70
[2023-05-28] MEDS: ASPIRIN 81MG ENTERIC TABLET PO SCH (08:59)
[2023-05-28] MEDS: TAMSULOSIN 0.4 MG CAP PO SCH (08:59)
[2023-05-28] MEDS: DOXYCYCLINE HYCLATE 100MG TABLET PO SCH ×2 (09:00→21:38)
[2023-05-28] MEDS: ATORVASTATIN 10 MG TAB PO SCH (09:00)
[2023-05-28] MEDS: carBAMazepine XR 200 MG TAB PO SCH ×2 (09:00→21:38)
[2023-05-28] MEDS: MAGNESIUM OXIDE 400MG TAB (MAG-OX) PO SCH (09:01)
[2023-05-28] MEDS: CETIRIZINE (ZyrTEC) 10 MG TAB PO SCH (09:01)
[2023-05-28] MEDS: amLODIPine 5 MG TAB PO SCH (09:01)
[2023-05-28] MEDS: CLOPIDOGREL 75 MG TAB PO SCH (09:01)
[2023-05-28] MEDS: AUGMENTIN 875 MG TAB PO SCH ×2 (09:01→21:38)
[2023-05-28] MEDS: METOPROLOL SUCC (TopROL XL) 100MG *XL* TAB PO SCH (09:01)
[2023-05-28] MEDS: GABAPENTIN 300 MG CAP PO SCH ×2 (09:01→21:38)
[2023-05-28] MEDS: OCUVITE 1 TAB PO SCH (09:05)
[2023-05-29 06:00] VITALS: BP 147/62; TEMP 97.2; O2SAT 95
[2023-05-29] MEDS: METOPROLOL SUCC (TopROL XL) 100MG *XL* TAB PO SCH (09:00)
[2023-05-29] MEDS: DOXYCYCLINE HYCLATE 100MG TABLET PO SCH ×2 (09:17→20:57)
[2023-05-29] MEDS: MAGNESIUM OXIDE 400MG TAB (MAG-OX) PO SCH (09:17)
[2023-05-29] MEDS: CLOPIDOGREL 75 MG TAB PO SCH (09:17)
[2023-05-29] MEDS: ATORVASTATIN 10 MG TAB PO SCH (09:17)
[2023-05-29] MEDS: CETIRIZINE (ZyrTEC) 10 MG TAB PO SCH (09:17)
[2023-05-29] MEDS: GABAPENTIN 300 MG CAP PO SCH ×2 (09:17→20:57)
[2023-05-29] MEDS: OCUVITE 1 TAB PO SCH (09:17)
[2023-05-29] MEDS: carBAMazepine XR 200 MG TAB PO SCH ×2 (09:18→20:56)
[2023-05-29] MEDS: AUGMENTIN 875 MG TAB PO SCH ×2 (09:18→20:57)
[2023-05-29] MEDS: TAMSULOSIN 0.4 MG CAP PO SCH (09:18)
[2023-05-29] MEDS: ASPIRIN 81MG ENTERIC TABLET PO SCH (09:18)
[2023-05-29] MEDS: amLODIPine 5 MG TAB PO SCH (09:20)
[2023-05-30] MEDS: amLODIPine 5 MG TAB PO SCH (09:00)
[2023-05-30] MEDS: METOPROLOL SUCC (TopROL XL) 100MG *XL* TAB PO SCH (09:00)
[2023-05-30] MEDS: ASPIRIN 81MG ENTERIC TABLET PO SCH (09:20)
[2023-05-30] MEDS: carBAMazepine XR 200 MG TAB PO SCH ×2 (09:21→19:40)
[2023-05-30] MEDS: AUGMENTIN 875 MG TAB PO SCH ×2 (09:21→19:40)
[2023-05-30] MEDS: TAMSULOSIN 0.4 MG CAP PO SCH (09:21)
[2023-05-30] MEDS: CLOPIDOGREL 75 MG TAB PO SCH (09:21)
[2023-05-30] MEDS: MAGNESIUM OXIDE 400MG TAB (MAG-OX) PO SCH (09:21)
[2023-05-30] MEDS: GABAPENTIN 300 MG CAP PO SCH ×2 (09:21→19:40)
[2023-05-30] MEDS: ATORVASTATIN 10 MG TAB PO SCH (09:22)
[2023-05-30] MEDS: DOXYCYCLINE HYCLATE 100MG TABLET PO SCH ×2 (09:22→19:40)
[2023-05-30] MEDS: CETIRIZINE (ZyrTEC) 10 MG TAB PO SCH (09:22)
[2023-05-30] MEDS: OCUVITE 1 TAB PO SCH (09:23)
[2023-05-31 06:00] VITALS: BP 147/59; TEMP 97.5; O2SAT 95
[2023-05-31] MEDS: ASPIRIN 81MG ENTERIC TABLET PO SCH (08:57)
[2023-05-31] MEDS: carBAMazepine XR 200 MG TAB PO SCH ×2 (08:57→20:45)
[2023-05-31] MEDS: CETIRIZINE (ZyrTEC) 10 MG TAB PO SCH (08:58)
[2023-05-31] MEDS: DOXYCYCLINE HYCLATE 100MG TABLET PO SCH ×2 (08:58→20:45)
[2023-05-31] MEDS: MAGNESIUM OXIDE 400MG TAB (MAG-OX) PO SCH (08:58)
[2023-05-31] MEDS: ATORVASTATIN 10 MG TAB PO SCH (08:59)
[2023-05-31] MEDS: CLOPIDOGREL 75 MG TAB PO SCH (08:59)
[2023-05-31] MEDS: GABAPENTIN 300 MG CAP PO SCH ×2 (08:59→20:45)
[2023-05-31] MEDS: TAMSULOSIN 0.4 MG CAP PO SCH (08:59)
[2023-05-31] MEDS: AUGMENTIN 875 MG TAB PO SCH ×2 (08:59→20:45)
[2023-05-31] MEDS: OCUVITE 1 TAB PO SCH (08:59)
[2023-05-31] MEDS: amLODIPine 5 MG TAB PO SCH (09:01)
[2023-05-31] MEDS: METOPROLOL SUCC (TopROL XL) 100MG *XL* TAB PO SCH (09:01)
[2023-06-01 05:25] VITALS: BP 138/52; TEMP 92.9; O2SAT 95
[2023-06-01 08:00] VITALS: BP 159/77; TEMP 97; O2SAT 97
[2023-06-01] MEDS: TAMSULOSIN 0.4 MG CAP PO SCH (08:59)
[2023-06-01] MEDS: OCUVITE 1 TAB PO SCH (08:59)
[2023-06-01] MEDS: ASPIRIN 81MG ENTERIC TABLET PO SCH (09:00)
[2023-06-01] MEDS: AUGMENTIN 875 MG TAB PO SCH ×2 (09:00→20:54)
[2023-06-01] MEDS: DOXYCYCLINE HYCLATE 100MG TABLET PO SCH ×2 (09:01→20:54)
[2023-06-01] MEDS: carBAMazepine XR 200 MG TAB PO SCH ×2 (09:01→20:54)
[2023-06-01] MEDS: ATORVASTATIN 10 MG TAB PO SCH (09:01)
[2023-06-01] MEDS: amLODIPine 5 MG TAB PO SCH (09:01)
[2023-06-01] MEDS: CETIRIZINE (ZyrTEC) 10 MG TAB PO SCH (09:02)
[2023-06-01] MEDS: GABAPENTIN 300 MG CAP PO SCH ×2 (09:03→20:54)
[2023-06-01] MEDS: METOPROLOL SUCC (TopROL XL) 100MG *XL* TAB PO SCH (09:04)
[2023-06-01] MEDS: CLOPIDOGREL 75 MG TAB PO SCH (09:04)
[2023-06-01] MEDS: MAGNESIUM OXIDE 400MG TAB (MAG-OX) PO SCH (09:04)
[2023-06-01 14:00] VITALS: BP 145/89; TEMP 97.2; O2SAT 94
[2023-06-02 05:52] VITALS: BP 106/53; TEMP 97.3; O2SAT 99
[2023-06-02] MEDS ORDERED: FLOM0.4C39 PO (09:33)
[2023-06-02] MEDS ORDERED: DOXY100T PO (09:33)
[2023-06-02] MEDS ORDERED: AMOX875T2 PO (09:33)
[2023-06-02] MEDS ORDERED: MAGN400T2 PO (09:33)
[2023-06-02] MEDS: ASPIRIN 81MG ENTERIC TABLET PO SCH (10:24)
[2023-06-02] MEDS: amLODIPine 5 MG TAB PO SCH (10:24)
[2023-06-02] MEDS: DOXYCYCLINE HYCLATE 100MG TABLET PO SCH (10:24)
[2023-06-02] MEDS: OCUVITE 1 TAB PO SCH (10:24)
[2023-06-02] MEDS: TAMSULOSIN 0.4 MG CAP PO SCH (10:24)
[2023-06-02] MEDS: AUGMENTIN 875 MG TAB PO SCH (10:25)
[2023-06-02] MEDS: MAGNESIUM OXIDE 400MG TAB (MAG-OX) PO SCH (10:25)
[2023-06-02] MEDS: CETIRIZINE (ZyrTEC) 10 MG TAB PO SCH (10:25)
[2023-06-02] MEDS: GABAPENTIN 300 MG CAP PO SCH (10:25)
[2023-06-02 10:26] VITALS: BP 157/67
[2023-06-02] MEDS: METOPROLOL SUCC (TopROL XL) 100MG *XL* TAB PO SCH (10:26)
[2023-06-02] MEDS: CLOPIDOGREL 75 MG TAB PO SCH (10:26)
[2023-06-02] MEDS: carBAMazepine XR 200 MG TAB PO SCH (10:26)
[2023-06-02] MEDS: ATORVASTATIN 10 MG TAB PO SCH (10:30)
== END 2023-06-02 13:30 | disposition home health service (06) | DRG 500 ==
LOC: M ED 12:51 → EDBD 12:51 → M ED INP 20:17 → M MSPAV 22:20
PROVIDERS: ADMIT General Practice; ATTEND Family Medicine
PROC: 0QB10ZZ Excision of Sacrum, Open Approach (ICD-10-PCS; 2023-05-17)
PROC: 0YBN0ZZ Excision of Left Foot, Open Approach (ICD-10-PCS; principal; 2023-05-19 16:30)
DX: M86.172 Other acute osteomyelitis, left ankle and foot (principal); L89.154 Pressure ulcer of sacral region, stage 4; L03.116 Cellulitis of left lower limb; I10 Essential (primary) hypertension; I73.9 Peripheral vascular disease, unspecified; L89.620 Pressure ulcer of left heel, unstageable; Z86.73 Personal history of transient ischemic attack (TIA), and cerebral infarction without residual deficits; Z79.899 Other long term (current) drug therapy; Z79.82 Long term (current) use of aspirin; E78.5 Hyperlipidemia, unspecified; H40.9 Unspecified glaucoma; I65.23 Occlusion and stenosis of bilateral carotid arteries; Z87.891 Personal history of nicotine dependence

== ENCOUNTER 2023-06-24 19:05 | Inpatient (IN) | payer MEDICARE, OTHER ==
[~2023-06-24] VITALS: Ht 170.2 cm; Wt 62.7 kg
[~2023-06-24 19:05] MED LIST changes: +AMOX875T2 PO; +ASPI81CH33 PO; -CEFD300C41 PO; +CEFD300C42 PO; +DOXY100T PO; +DOXY100T2 PO; +FLOM0.4C39 PO; +MAGN400T2 PO; +MAGN400T35 PO; +PROB250C PO; +TAMS1CAP17 PO
[2023-06-24 19:34] LABS: ABG BASE EXCESS 3.8 (-2.0-2.0); ABG HCO3 27.8 MMOL/L (22.0-26.0); ABG PARTIAL PRESSURE CO2 39.7 mmHg (35.0-45.0); ABG PARTIAL PRESSURE O2 80.9 mmHg (75.0-100.0); ABG STANDARD HCO3 27.8 MMOL/L. (22.0-26.0); ABG pH (ARTERIAL) 7.463 UNITS (7.350-7.450)
[2023-06-24 19:53] LABS: BASO # 0.1 10^3/uL (0.0-0.2); BASO % 0.3 % (0.0-1.0); HEMATOCRIT 38.9 % (42.0-52.0); HEMOGLOBIN 11.9 g/dl (13.5-17.5); LYMPH # 3.5 10^3/uL (1.5-5.0); LYMPH % 14.1 % (24.0-44.0); MEAN CORPUSCULAR HEMOGLOBIN 29.6 pg (27.0-33.0); MEAN CORPUSCULAR HGB CONC 30.6 g/dl (32.0-36.5); MEAN CORPUSCULAR VOLUME 96.8 fl (80.0-96.0); MONO # 1.3 10^3/uL (0.0-0.8); MONO % 5.4 % (2.0-8.0); NEUTROPHILS # 19.5 10^3/uL (1.5-8.5); NEUTROPHILS % 79.5 % (36.0-66.0); PLATELET COUNT, AUTOMATED 346 10^3/uL (150-450); RED BLOOD COUNT 4.02 10^6/uL (4.30-6.10); WHITE BLOOD COUNT 24.6 10^3/uL (4.0-10.0)
[2023-06-24 20:17] LABS: CPK CREATINE PHOSPHOKINASE 545 U/L (46-171)
[2023-06-24 20:18] LABS: ALBUMIN 1.7 G/DL (3.2-5.2); ALKALINE PHOSPHATASE 88 U/L (46-116); ALT/SGPT 15 U/L (7.0-40); AST/SGOT 46 U/L (<34); BILIRUBIN,DIRECT 0.2 MG/DL (<0.4); BILIRUBIN,TOTAL 0.3 MG/DL (0.3-1.2); BLOOD UREA NITROGEN 22 MG/DL (9-23); CARBON DIOXIDE LEVEL 30 MMOL/L (20-31); CHLORIDE LEVEL 105 MMOL/L (98-107); CK-MB VALUE MASS 2.9 NG/ML (<3.6); CREATININE FOR GFR 1.01 MG/DL (0.70-1.30); GLOMERULAR FILTRATION RATE > 60.0 (>35); GLUCOSE, FASTING 141 MG/DL (74-106); MB/CK RELATIVE INDEX 0.53 (< OR =4); POTASSIUM SERUM 4.7 MMOL/L (3.5-5.1); SODIUM LEVEL 143 MMOL/L (136-145); TOTAL PROTEIN 5.3 G/DL (5.7-8.2)
[2023-06-24] MEDS ORDERED: ISOVUE-370 76% 100ML VIAL As Ordered ONE (20:38)
[2023-06-24 21:32] LABS: PROCALCITONIN 0.58 ng/ml
[2023-06-24] MEDS ORDERED: PIPERACILLIN/TAZOBACTAM SOD 4.5 GM in D5W MINI-BAG PLUS 50 ML IV ONE (22:00)
[2023-06-24] MEDS ORDERED: MED REC IN PROGRESS XX SCH (22:25)
[2023-06-24] MEDS ORDERED: MED REC CURRENTLY UNOBTAINABLE XX SCH (22:40)
[2023-06-24] MEDS ORDERED: ACETAMINOPHEN TAB 650MG DOSE (2X325MG) PO PRN (23:00)
[2023-06-24] MEDS ORDERED: MOM 30ML SUSPENSION UDC PO PRN (23:00)
[2023-06-24] MEDS ORDERED: LR 1,000 ML IV ONE (23:55)
[2023-06-25] MEDS: AZITHROMYCIN INJ 500 MG, VIAL MATE ADAPTER 1 EACH in D5W 250 ML IV SCH (00:23)
[2023-06-25] MEDS: IPRATROPIUM 0.5MG/ALBUTEROL 2.5MG INH SOL UD 3ML (DUONEB) INH SCH ×4 (01:43→21:21)
[2023-06-25 02:16] LABS: INR 1.58; PROTHROMBIN TIME 18.4 SECONDS (12.5-14.5)
[2023-06-25 02:27] LABS: CK-MB VALUE MASS 2.7 NG/ML (<3.6)
[2023-06-25 02:29] LABS: MB/CK RELATIVE INDEX 0.6 (< OR =4)
[2023-06-25] MEDS: PIPERACILLIN/TAZOBACTAM SOD 4.5 GM in D5W MINI-BAG PLUS 50 ML IV SCH ×4 (04:58→23:51)
[2023-06-25 07:19] LABS: BASO % 0.3 % (0.0-1.0); EOS % 0.1 % (0.0-3.0); HEMATOCRIT 34.7 % (42.0-52.0); HEMOGLOBIN 10.5 g/dl (13.5-17.5); LYMPH # 1.7 10^3/uL (1.5-5.0); LYMPH % 11.2 % (24.0-44.0); MEAN CORPUSCULAR HEMOGLOBIN 29.4 pg (27.0-33.0); MEAN CORPUSCULAR HGB CONC 30.3 g/dl (32.0-36.5); MEAN CORPUSCULAR VOLUME 97.2 fl (80.0-96.0); MONO # 0.6 10^3/uL (0.0-0.8); MONO % 3.9 % (2.0-8.0); NEUTROPHILS # 12.6 10^3/uL (1.5-8.5); PLATELET COUNT, AUTOMATED 270 10^3/uL (150-450); RED BLOOD COUNT 3.57 10^6/uL (4.30-6.10)
[2023-06-25] MEDS ORDERED: BACI1CAP PO (07:33)
[2023-06-25] MEDS ORDERED: MAGN400T35 PO (07:33)
[2023-06-25] MEDS ORDERED: HOME MED LIST COMPLETE! XX SCH (07:35)
[2023-06-25] MEDS: DOCUSATE SODIUM 100MG CAPSULE PO SCH ×2 (08:58→21:40)
[2023-06-25] MEDS: ENOXAPARIN 40MG/0.4ML SYRINGE (J1650 PER 10MG) SC SCH (08:59)
[2023-06-25] MEDS: carBAMazepine XR 200 MG TAB PO SCH ×2 (09:00→21:40)
[2023-06-25 10:24] LABS: ALBUMIN 1.6 G/DL (3.2-5.2); ALKALINE PHOSPHATASE 85 U/L (46-116); ALT/SGPT 13 U/L (7.0-40); AST/SGOT 40 U/L (<34); BILIRUBIN,TOTAL 0.3 MG/DL (0.3-1.2); BLOOD UREA NITROGEN 22 MG/DL (9-23); CALCIUM LEVEL 8.3 MG/DL (8.3-10.6); CARBON DIOXIDE LEVEL 32 MMOL/L (20-31); CHLORIDE LEVEL 104 MMOL/L (98-107); CREATININE FOR GFR 0.87 MG/DL (0.70-1.30); GLOMERULAR FILTRATION RATE > 60.0 (>35); GLUCOSE, FASTING 139 MG/DL (74-106); POTASSIUM SERUM 3.7 MMOL/L (3.5-5.1); SODIUM LEVEL 144 MMOL/L (136-145); TOTAL PROTEIN 5.4 G/DL (5.7-8.2)
[2023-06-25] MEDS: ASPIRIN 81MG CHEW TABLET PO SCH (11:57)
[2023-06-25] MEDS: METOPROLOL SUCC (TopROL XL) 100MG *XL* TAB PO SCH (11:57)
[2023-06-25] MEDS: CLOPIDOGREL 75 MG TAB PO SCH (11:57)
[2023-06-25] MEDS: GABAPENTIN 300 MG CAP PO SCH ×2 (11:57→21:40)
[2023-06-25] MEDS: MAGNESIUM OXIDE 400MG TAB (MAG-OX) PO SCH (11:58)
[2023-06-25] MEDS: ATORVASTATIN 10 MG TAB PO SCH (11:58)
[2023-06-25] MEDS: TAMSULOSIN 0.4 MG CAP PO SCH (11:58)
[2023-06-25 20:43] VITALS: BP 122/83; TEMP 97.3; O2SAT 89
[2023-06-26] MEDS: IPRATROPIUM 0.5MG/ALBUTEROL 2.5MG INH SOL UD 3ML (DUONEB) INH SCH ×4 (00:54→19:33)
[2023-06-26] MEDS: AZITHROMYCIN INJ 500 MG, VIAL MATE ADAPTER 1 EACH in D5W 250 ML IV SCH (02:10)
[2023-06-26] MEDS: PIPERACILLIN/TAZOBACTAM SOD 4.5 GM in D5W MINI-BAG PLUS 50 ML IV SCH ×4 (05:49→23:44)
[2023-06-26 06:09] VITALS: BP 102/61; TEMP 97.5; O2SAT 91
[2023-06-26 06:46] LABS: BASO # 0.1 10^3/uL (0.0-0.2); BASO % 0.5 % (0.0-1.0); EOS # 0.2 10^3/uL (0.0-0.5); EOS % 1.4 % (0.0-3.0); HEMATOCRIT 28.9 % (42.0-52.0); LYMPH # 1.8 10^3/uL (1.5-5.0); LYMPH % 16.3 % (24.0-44.0); MEAN CORPUSCULAR HEMOGLOBIN 29.9 pg (27.0-33.0); MEAN CORPUSCULAR HGB CONC 31.1 g/dl (32.0-36.5); MONO # 0.8 10^3/uL (0.0-0.8); MONO % 6.8 % (2.0-8.0); NEUTROPHILS # 8.3 10^3/uL (1.5-8.5); NEUTROPHILS % 74.5 % (36.0-66.0); PLATELET COUNT, AUTOMATED 226 10^3/uL (150-450); RED BLOOD COUNT 3.01 10^6/uL (4.30-6.10); WHITE BLOOD COUNT 11.1 10^3/uL (4.0-10.0)
[2023-06-26 07:10] LABS: ALBUMIN 1.3 G/DL (3.2-5.2); ALKALINE PHOSPHATASE 67 U/L (46-116); ALT/SGPT 12 U/L (7.0-40); AST/SGOT 39 U/L (<34); BILIRUBIN,TOTAL 0.3 MG/DL (0.3-1.2); BLOOD UREA NITROGEN 23 MG/DL (9-23); CALCIUM LEVEL 7.6 MG/DL (8.3-10.6); CARBON DIOXIDE LEVEL 32 MMOL/L (20-31); CHLORIDE LEVEL 107 MMOL/L (98-107); CREATININE FOR GFR 0.82 MG/DL (0.70-1.30); GLOMERULAR FILTRATION RATE > 60.0 (>35); GLUCOSE, FASTING 100 MG/DL (74-106); POTASSIUM SERUM 3.2 MMOL/L (3.5-5.1); SODIUM LEVEL 144 MMOL/L (136-145); TOTAL PROTEIN 4.4 G/DL (5.7-8.2)
[2023-06-26] MEDS ORDERED: POTASSIUM CHLORIDE 10MEQ SR TABLET PO ONE (07:20)
[2023-06-26] MEDS: ASPIRIN 81MG CHEW TABLET PO SCH (09:30)
[2023-06-26] MEDS: TAMSULOSIN 0.4 MG CAP PO SCH (09:30)
[2023-06-26] MEDS: DOCUSATE SODIUM 100MG CAPSULE PO SCH ×2 (09:30→21:15)
[2023-06-26] MEDS: ATORVASTATIN 10 MG TAB PO SCH (09:31)
[2023-06-26] MEDS: CLOPIDOGREL 75 MG TAB PO SCH (09:31)
[2023-06-26] MEDS: GABAPENTIN 300 MG CAP PO SCH ×2 (09:31→21:15)
[2023-06-26] MEDS: MAGNESIUM OXIDE 400MG TAB (MAG-OX) PO SCH (09:31)
[2023-06-26] MEDS: carBAMazepine XR 200 MG TAB PO SCH ×2 (09:32→21:15)
[2023-06-26] MEDS: METOPROLOL SUCC (TopROL XL) 100MG *XL* TAB PO SCH (09:33)
[2023-06-26] MEDS: ENOXAPARIN 40MG/0.4ML SYRINGE (J1650 PER 10MG) SC SCH (09:34)
[2023-06-26] MEDS: DOXYCYCLINE HYCLATE 100MG TABLET PO SCH ×2 (09:39→21:15)
[2023-06-26 13:50] VITALS: BP 121/48; TEMP 97.5; O2SAT 95
[2023-06-26 22:00] VITALS: BP 126/46; TEMP 97.3; O2SAT 96
[2023-06-27] MEDS: IPRATROPIUM 0.5MG/ALBUTEROL 2.5MG INH SOL UD 3ML (DUONEB) INH SCH ×4 (01:05→19:52)
[2023-06-27] MEDS: PIPERACILLIN/TAZOBACTAM SOD 4.5 GM in D5W MINI-BAG PLUS 50 ML IV SCH (05:22)
[2023-06-27 06:00] VITALS: BP 162/68; TEMP 97.3; O2SAT 96
[2023-06-27 07:25] LABS: BASO # 0.1 10^3/uL (0.0-0.2); BASO % 0.5 % (0.0-1.0); EOS # 0.3 10^3/uL (0.0-0.5); EOS % 2.6 % (0.0-3.0); HEMATOCRIT 30.3 % (42.0-52.0); LYMPH # 1.5 10^3/uL (1.5-5.0); MEAN CORPUSCULAR HEMOGLOBIN 29.6 pg (27.0-33.0); MEAN CORPUSCULAR HGB CONC 29.7 g/dl (32.0-36.5); MEAN CORPUSCULAR VOLUME 99.7 fl (80.0-96.0); MONO # 0.8 10^3/uL (0.0-0.8); MONO % 7.8 % (2.0-8.0); NEUTROPHILS # 7.5 10^3/uL (1.5-8.5); NEUTROPHILS % 73.6 % (36.0-66.0); PLATELET COUNT, AUTOMATED 208 10^3/uL (150-450); RED BLOOD COUNT 3.04 10^6/uL (4.30-6.10); WHITE BLOOD COUNT 10.2 10^3/uL (4.0-10.0)
[2023-06-27 07:49] LABS: ALBUMIN 1.4 G/DL (3.2-5.2); ALKALINE PHOSPHATASE 78 U/L (46-116); ALT/SGPT 14 U/L (7.0-40); AST/SGOT 48 U/L (<34); BILIRUBIN,TOTAL 0.3 MG/DL (0.3-1.2); BLOOD UREA NITROGEN 16 MG/DL (9-23); CALCIUM LEVEL 8.1 MG/DL (8.3-10.6); CARBON DIOXIDE LEVEL 34 MMOL/L (20-31); CHLORIDE LEVEL 107 MMOL/L (98-107); CREATININE FOR GFR 0.79 MG/DL (0.70-1.30); GLOMERULAR FILTRATION RATE > 60.0 (>35); GLUCOSE, FASTING 100 MG/DL (74-106); SODIUM LEVEL 146 MMOL/L (136-145); TOTAL PROTEIN 4.7 G/DL (5.7-8.2)
[2023-06-27 08:10] VITALS: O2SAT 95
[2023-06-27] MEDS: METOPROLOL SUCC (TopROL XL) 100MG *XL* TAB PO SCH ×2 (09:00→09:13)
[2023-06-27] MEDS: DOCUSATE SODIUM 100MG CAPSULE PO SCH ×2 (09:06→20:29)
[2023-06-27] MEDS: ASPIRIN 81MG CHEW TABLET PO SCH (09:06)
[2023-06-27] MEDS: TAMSULOSIN 0.4 MG CAP PO SCH (09:06)
[2023-06-27] MEDS: LevoFLOXacin 750 MG TABLET PO SCH (09:07)
[2023-06-27] MEDS: CLOPIDOGREL 75 MG TAB PO SCH (09:07)
[2023-06-27] MEDS: MAGNESIUM OXIDE 400MG TAB (MAG-OX) PO SCH (09:07)
[2023-06-27] MEDS: ATORVASTATIN 10 MG TAB PO SCH (09:07)
[2023-06-27] MEDS: carBAMazepine XR 200 MG TAB PO SCH ×2 (09:07→20:29)
[2023-06-27] MEDS: GABAPENTIN 300 MG CAP PO SCH ×2 (09:07→20:29)
[2023-06-27] MEDS: ENOXAPARIN 40MG/0.4ML SYRINGE (J1650 PER 10MG) SC SCH (09:08)
[2023-06-27 13:44] VITALS: BP 103/58; TEMP 97.7; O2SAT 97
[2023-06-27 14:08] VITALS: O2SAT 95
[2023-06-27 19:53] VITALS: O2SAT 97
[2023-06-27 20:16] VITALS: BP 133/51; TEMP 97.3; O2SAT 97
[2023-06-28] MEDS: IPRATROPIUM 0.5MG/ALBUTEROL 2.5MG INH SOL UD 3ML (DUONEB) INH SCH ×4 (01:32→19:22)
[2023-06-28] MEDS: LevoFLOXacin 750 MG TABLET PO SCH (06:09)
[2023-06-28 06:20] VITALS: BP 118/57; TEMP 97.7; O2SAT 90
[2023-06-28 06:45] LABS: BASO % 0.3 % (0.0-1.0); EOS # 0.3 10^3/uL (0.0-0.5); EOS % 3.3 % (0.0-3.0); HEMATOCRIT 32.2 % (42.0-52.0); HEMOGLOBIN 9.2 g/dl (13.5-17.5); LYMPH # 1.9 10^3/uL (1.5-5.0); LYMPH % 19.4 % (24.0-44.0); MEAN CORPUSCULAR HEMOGLOBIN 28.6 pg (27.0-33.0); MEAN CORPUSCULAR HGB CONC 28.6 g/dl (32.0-36.5); MONO # 0.8 10^3/uL (0.0-0.8); MONO % 8.3 % (2.0-8.0); NEUTROPHILS # 6.6 10^3/uL (1.5-8.5); NEUTROPHILS % 68.1 % (36.0-66.0); PLATELET COUNT, AUTOMATED 210 10^3/uL (150-450); RED BLOOD COUNT 3.22 10^6/uL (4.30-6.10); WHITE BLOOD COUNT 9.6 10^3/uL (4.0-10.0)
[2023-06-28 07:03] LABS: ALBUMIN 1.4 G/DL (3.2-5.2); ALKALINE PHOSPHATASE 84 U/L (46-116); ALT/SGPT 18 U/L (7.0-40); AST/SGOT 32 U/L (<34); BILIRUBIN,TOTAL 0.3 MG/DL (0.3-1.2); BLOOD UREA NITROGEN 17 MG/DL (9-23); CALCIUM LEVEL 8.4 MG/DL (8.3-10.6); CARBON DIOXIDE LEVEL 36 MMOL/L (20-31); CHLORIDE LEVEL 110 MMOL/L (98-107); CREATININE FOR GFR 0.75 MG/DL (0.70-1.30); GLOMERULAR FILTRATION RATE > 60.0 (>35); GLUCOSE, FASTING 97 MG/DL (74-106); POTASSIUM SERUM 4.1 MMOL/L (3.5-5.1); SODIUM LEVEL 149 MMOL/L (136-145); TOTAL PROTEIN 4.9 G/DL (5.7-8.2)
[2023-06-28] MEDS: ENOXAPARIN 40MG/0.4ML SYRINGE (J1650 PER 10MG) SC SCH (08:03)
[2023-06-28] MEDS: MAGNESIUM OXIDE 400MG TAB (MAG-OX) PO SCH (08:03)
[2023-06-28] MEDS: carBAMazepine XR 200 MG TAB PO SCH ×2 (08:03→21:10)
[2023-06-28] MEDS: GABAPENTIN 300 MG CAP PO SCH ×2 (08:04→21:10)
[2023-06-28] MEDS: CLOPIDOGREL 75 MG TAB PO SCH (08:04)
[2023-06-28] MEDS: DOCUSATE SODIUM 100MG CAPSULE PO SCH ×2 (08:04→21:10)
[2023-06-28] MEDS: ATORVASTATIN 10 MG TAB PO SCH (08:04)
[2023-06-28] MEDS: ASPIRIN 81MG CHEW TABLET PO SCH (08:04)
[2023-06-28] MEDS: TAMSULOSIN 0.4 MG CAP PO SCH (08:04)
[2023-06-28] MEDS: METOPROLOL SUCC (TopROL XL) 100MG *XL* TAB PO SCH (08:05)
[2023-06-28 14:00] VITALS: BP 114/49; TEMP 97.2; O2SAT 95
[2023-06-28 20:09] VITALS: BP 147/60; TEMP 97.3; O2SAT 93
[2023-06-29] MEDS: IPRATROPIUM 0.5MG/ALBUTEROL 2.5MG INH SOL UD 3ML (DUONEB) INH SCH ×2 (00:08→07:33)
[2023-06-29] MEDS: LevoFLOXacin 750 MG TABLET PO SCH (05:51)
[2023-06-29 06:28] VITALS: BP 130/57; TEMP 97.5; O2SAT 94
[2023-06-29 07:38] LABS: BASO # 0.1 10^3/uL (0.0-0.2); BASO % 0.5 % (0.0-1.0); EOS # 0.5 10^3/uL (0.0-0.5); EOS % 5.1 % (0.0-3.0); HEMATOCRIT 31.8 % (42.0-52.0); HEMOGLOBIN 9.4 g/dl (13.5-17.5); LYMPH # 1.8 10^3/uL (1.5-5.0); MEAN CORPUSCULAR HEMOGLOBIN 29.4 pg (27.0-33.0); MEAN CORPUSCULAR HGB CONC 29.6 g/dl (32.0-36.5); MEAN CORPUSCULAR VOLUME 99.4 fl (80.0-96.0); MONO # 0.8 10^3/uL (0.0-0.8); MONO % 8.6 % (2.0-8.0); NEUTROPHILS # 6.5 10^3/uL (1.5-8.5); NEUTROPHILS % 67.1 % (36.0-66.0); PLATELET COUNT, AUTOMATED 242 10^3/uL (150-450); WHITE BLOOD COUNT 9.8 10^3/uL (4.0-10.0)
[2023-06-29 07:58] LABS: ALBUMIN 1.4 G/DL (3.2-5.2); ALKALINE PHOSPHATASE 84 U/L (46-116); ALT/SGPT 20 U/L (7.0-40); AST/SGOT 41 U/L (<34); BILIRUBIN,TOTAL 0.3 MG/DL (0.3-1.2); BLOOD UREA NITROGEN 14 MG/DL (9-23); CALCIUM LEVEL 8.4 MG/DL (8.3-10.6); CARBON DIOXIDE LEVEL 36 MMOL/L (20-31); CHLORIDE LEVEL 107 MMOL/L (98-107); CREATININE FOR GFR 0.79 MG/DL (0.70-1.30); GLOMERULAR FILTRATION RATE > 60.0 (>35); GLUCOSE, FASTING 90 MG/DL (74-106); POTASSIUM SERUM 3.8 MMOL/L (3.5-5.1); SODIUM LEVEL 148 MMOL/L (136-145); TOTAL PROTEIN 4.9 G/DL (5.7-8.2)
[2023-06-29] MEDS: ASPIRIN 81MG CHEW TABLET PO SCH (09:48)
[2023-06-29] MEDS: ENOXAPARIN 40MG/0.4ML SYRINGE (J1650 PER 10MG) SC SCH (09:48)
[2023-06-29] MEDS: carBAMazepine XR 200 MG TAB PO SCH (09:48)
[2023-06-29] MEDS: DOCUSATE SODIUM 100MG CAPSULE PO SCH (09:48)
[2023-06-29] MEDS: GABAPENTIN 300 MG CAP PO SCH (09:49)
[2023-06-29] MEDS: MAGNESIUM OXIDE 400MG TAB (MAG-OX) PO SCH (09:49)
[2023-06-29] MEDS: CLOPIDOGREL 75 MG TAB PO SCH (09:49)
[2023-06-29 09:50] VITALS: BP 130/55
[2023-06-29] MEDS: ATORVASTATIN 10 MG TAB PO SCH (09:50)
[2023-06-29] MEDS: METOPROLOL SUCC (TopROL XL) 100MG *XL* TAB PO SCH (09:50)
[2023-06-29] MEDS: TAMSULOSIN 0.4 MG CAP PO SCH (09:50)
[2023-06-29] MEDS ORDERED: LEVO1TAB40 PO (10:24)
== END 2023-06-29 13:05 | disposition home health service (06) | DRG 871 ==
LOC: M ED 19:05 → EDBD 19:05 → M ED INP 23:00 → ENRESERV 06-25 10:35 → M MS5PR 06-25 12:55
PROVIDERS: ADMIT Student in an Organized Health Care Education/Training Program; ATTEND Student in an Organized Health Care Education/Training Program
DX: A41.9 Sepsis, unspecified organism (principal); J96.01 Acute respiratory failure with hypoxia; J18.9 Pneumonia, unspecified organism; J15.69 Pneumonia due to other Gram-negative bacteria; L89.154 Pressure ulcer of sacral region, stage 4; L89.624 Pressure ulcer of left heel, stage 4; E87.20 Acidosis, unspecified; E87.0 Hyperosmolality and hypernatremia; N39.0 Urinary tract infection, site not specified; T83.511A Infection and inflammatory reaction due to indwelling urethral catheter, initial encounter; E78.5 Hyperlipidemia, unspecified; I10 Essential (primary) hypertension; I73.9 Peripheral vascular disease, unspecified; G62.9 Polyneuropathy, unspecified; I69.391 Dysphagia following cerebral infarction; B96.29 Other Escherichia coli [E. coli] as the cause of diseases classified elsewhere; E87.6 Hypokalemia; Z79.82 Long term (current) use of aspirin; Z79.899 Other long term (current) drug therapy; H40.9 Unspecified glaucoma; I65.23 Occlusion and stenosis of bilateral carotid arteries; F03.90 Unspecified dementia, unspecified severity, without behavioral disturbance, psychotic disturbance, mood disturbance, and anxiety; R33.9 Retention of urine, unspecified; G50.0 Trigeminal neuralgia; Y84.6 Urinary catheterization as the cause of abnormal reaction of the patient, or of later complication, without mention of misadventure at the time of the procedure

== ENCOUNTER 2023-07-01 12:42 | Observation (INO) | payer MEDICARE, OTHER ==
[~2023-07-01] VITALS: Ht 170.2 cm; Wt 62.5 kg
[~2023-07-01 12:42] MED LIST changes: +BACI1CAP PO; +LEVO1TAB40 PO
[2023-07-01 13:21] LABS: VENOUS BASE EXCESS 2.8 (-2.0-2.0); VENOUS HCO3 28.4 MMOL/L (23.0-27.0); VENOUS PARTIAL PRESSURE CO2 47.5 mmHg (38.0-50.0); VENOUS PARTIAL PRESSURE O2 25.6 mmHg (30.0-50.0); VENOUS PH 7.395 UNITS (7.330-7.430); VENOUS STANDARD HCO3 25.7 MMOL/L; VENOUS TOTAL CO2 29.9 MMOL/L (24.0-28.0)
[2023-07-01 13:25] LABS: BASO # 0.1 10^3/uL (0.0-0.2); BASO % 0.4 % (0.0-1.0); EOS # 0.3 10^3/uL (0.0-0.5); EOS % 1.6 % (0.0-3.0); HEMATOCRIT 40.2 % (42.0-52.0); LYMPH # 4.3 10^3/uL (1.5-5.0); LYMPH % 25.4 % (24.0-44.0); MEAN CORPUSCULAR HEMOGLOBIN 29.5 pg (27.0-33.0); MEAN CORPUSCULAR HGB CONC 29.9 g/dl (32.0-36.5); MEAN CORPUSCULAR VOLUME 98.8 fl (80.0-96.0); MONO % 5.7 % (2.0-8.0); NEUTROPHILS % 65.8 % (36.0-66.0); PLATELET COUNT, AUTOMATED 324 10^3/uL (150-450); RED BLOOD COUNT 4.07 10^6/uL (4.30-6.10); WHITE BLOOD COUNT 16.7 10^3/uL (4.0-10.0)
[2023-07-01 13:48] LABS: CPK CREATINE PHOSPHOKINASE 91 U/L (46-171); MB/CK RELATIVE INDEX 1.09 (< OR =4)
[2023-07-01 13:50] LABS: THYROID STIMULATING HORMONE 2.006 uIU/ML (0.55-4.78)
[2023-07-01 13:52] LABS: ALBUMIN 1.7 G/DL (3.2-5.2); ALKALINE PHOSPHATASE 106 U/L (46-116); ALT/SGPT 29 U/L (7.0-40); AST/SGOT 80 U/L (<34); BILIRUBIN,DIRECT 0.2 MG/DL (<0.4); BILIRUBIN,TOTAL 0.5 MG/DL (0.3-1.2); BLOOD UREA NITROGEN 13 MG/DL (9-23); CARBON DIOXIDE LEVEL 31 MMOL/L (20-31); CHLORIDE LEVEL 106 MMOL/L (98-107); CREATININE FOR GFR 0.79 MG/DL (0.70-1.30); GLOMERULAR FILTRATION RATE > 60.0 (>35); GLUCOSE, FASTING 106 MG/DL (74-106); POTASSIUM SERUM 4.7 MMOL/L (3.5-5.1); SODIUM LEVEL 145 MMOL/L (136-145); TOTAL PROTEIN 5.9 G/DL (5.7-8.2)
[2023-07-01] MEDS ORDERED: NS 1,880 ML in IV 1 EA IV ONE (14:05)
[2023-07-01] MEDS ORDERED: ISOVUE-370 76% 100ML VIAL As Ordered ONE (14:09)
[2023-07-01 14:11] LABS: RSV AMPLIFICATION NEGATIVE (NEGATIVE)
[2023-07-01] MEDS ORDERED: cefTRIAXone SOD 2 GM in D5W MINI-BAG PLUS 50 ML IV ONE (15:10)
[2023-07-01] MEDS ORDERED: NS 1,000 ML IV SCH (18:05)
[2023-07-01 18:57] LABS: PROCALCITONIN 0.13 ng/ml
[2023-07-01] MEDS ORDERED: MED REC IN PROGRESS XX SCH (19:00)
[2023-07-01] MEDS: LEVALBUTEROL 1.25MG 0.5ML CONCENTRATE NEB INH SCH (19:16)
[2023-07-01] MEDS: IPRATROPIUM 0.5MG/ALBUTEROL 2.5MG INH SOL UD 3ML (DUONEB) INH SCH (19:16)
[2023-07-01 20:27] VITALS: BP 115/63; TEMP 98.4; O2SAT 97
[2023-07-01] MEDS: DOXYCYCLINE HYCLATE 100MG TABLET PO SCH (20:54)
[2023-07-01] MEDS: PIPERACILLIN/TAZOBACTAM SOD 4.5 GM in D5W MINI-BAG PLUS 50 ML IV SCH (21:53)
[2023-07-02] MEDS: IPRATROPIUM 0.5MG/ALBUTEROL 2.5MG INH SOL UD 3ML (DUONEB) INH SCH ×2 (02:00→19:31)
[2023-07-02] MEDS: LEVALBUTEROL 1.25MG 0.5ML CONCENTRATE NEB INH SCH ×4 (02:55→19:31)
[2023-07-02] MEDS: PIPERACILLIN/TAZOBACTAM SOD 4.5 GM in D5W MINI-BAG PLUS 50 ML IV SCH ×4 (03:47→23:17)
[2023-07-02 06:00] VITALS: BP 114/49; TEMP 97.5; O2SAT 98
[2023-07-02] MEDS: DOXYCYCLINE HYCLATE 100MG TABLET PO SCH ×2 (06:09→20:12)
[2023-07-02 06:10] LABS: MEAN CORPUSCULAR HEMOGLOBIN 29.5 pg (27.0-33.0); MEAN CORPUSCULAR VOLUME 98.3 fl (80.0-96.0); RED BLOOD COUNT 2.95 10^6/uL (4.30-6.10); WHITE BLOOD COUNT 8.6 10^3/uL (4.0-10.0)
[2023-07-02 06:28] LABS: PLATELET COUNT, AUTOMATED 168 10^3/uL (150-450)
[2023-07-02 06:29] LABS: HEMOGLOBIN 8.7 g/dl (13.5-17.5)
[2023-07-02] MEDS ORDERED: RISATAB3 PO (06:30)
[2023-07-02] MEDS ORDERED: LEVO1TAB40 PO (06:30)
[2023-07-02] MEDS ORDERED: ASPI-161 PO (06:30)
[2023-07-02] MEDS ORDERED: HOME MED LIST COMPLETE! XX SCH (06:35)
[2023-07-02 06:47] LABS: ALBUMIN 1.3 G/DL (3.2-5.2); ALKALINE PHOSPHATASE 76 U/L (46-116); ALT/SGPT 17 U/L (7.0-40); AST/SGOT 44 U/L (<34); BILIRUBIN,TOTAL 0.3 MG/DL (0.3-1.2); BLOOD UREA NITROGEN 14 MG/DL (9-23); CALCIUM LEVEL 7.5 MG/DL (8.3-10.6); CARBON DIOXIDE LEVEL 29 MMOL/L (20-31); CHLORIDE LEVEL 111 MMOL/L (98-107); CREATININE FOR GFR 0.81 MG/DL (0.70-1.30); GLOMERULAR FILTRATION RATE > 60.0 (>35); GLUCOSE, FASTING 107 MG/DL (74-106); MAGNESIUM LEVEL 1.6 MG/DL (1.8-2.4); POTASSIUM SERUM 3.5 MMOL/L (3.5-5.1); SODIUM LEVEL 149 MMOL/L (136-145); TOTAL PROTEIN 4.4 G/DL (5.7-8.2)
[2023-07-02] MEDS ORDERED: MAG SULF 1GM/100ML (MAG RUN) 1 GM in IV 1 EA IV ONE (09:00)
[2023-07-02] MEDS: amLODIPine 5 MG TAB PO SCH (09:00)
[2023-07-02] MEDS: METOPROLOL SUCC (TopROL XL) 100MG *XL* TAB PO SCH (09:00)
[2023-07-02] MEDS: ASPIRIN 81MG ENTERIC TABLET PO SCH (09:15)
[2023-07-02] MEDS: CETIRIZINE (ZyrTEC) 10 MG TAB PO SCH (09:15)
[2023-07-02] MEDS: TAMSULOSIN 0.4 MG CAP PO SCH (09:15)
[2023-07-02] MEDS: ATORVASTATIN 10 MG TAB PO SCH (09:15)
[2023-07-02] MEDS: CLOPIDOGREL 75 MG TAB PO SCH (09:15)
[2023-07-02] MEDS: HEPARIN SOD (PORCINE) 5000UNITS/ML 1ML VIAL/SYRINGE SC SCH ×3 (09:16→23:16)
[2023-07-02] MEDS ORDERED: DEXTROSE ONE (10:45)
[2023-07-02] MEDS ORDERED: D5W 1,000 ML IV SCH (12:00)
[2023-07-02 14:00] VITALS: BP 103/45; TEMP 97.3; O2SAT 98
[2023-07-02 20:26] VITALS: BP 104/51; TEMP 97.7; O2SAT 97
[2023-07-02] MEDS: GABAPENTIN 300 MG CAP PO SCH ×2 (21:00→23:15)
[2023-07-02] MEDS ORDERED: carBAMazepine XR 100 MG TAB PO SCH (21:00)
[2023-07-03] MEDS: IPRATROPIUM 0.5MG/ALBUTEROL 2.5MG INH SOL UD 3ML (DUONEB) INH SCH ×4 (02:00→19:25)
[2023-07-03] MEDS: LEVALBUTEROL 1.25MG 0.5ML CONCENTRATE NEB INH SCH ×4 (02:39→19:25)
[2023-07-03] MEDS: PIPERACILLIN/TAZOBACTAM SOD 4.5 GM in D5W MINI-BAG PLUS 50 ML IV SCH ×4 (04:14→22:24)
[2023-07-03 04:35] VITALS: BP 108/52; TEMP 98.1; O2SAT 96
[2023-07-03] MEDS: DOXYCYCLINE HYCLATE 100MG TABLET PO SCH ×2 (05:48→18:47)
[2023-07-03] MEDS: HEPARIN SOD (PORCINE) 5000UNITS/ML 1ML VIAL/SYRINGE SC SCH ×2 (09:32→20:13)
[2023-07-03] MEDS: TAMSULOSIN 0.4 MG CAP PO SCH (09:32)
[2023-07-03] MEDS: ATORVASTATIN 10 MG TAB PO SCH (09:32)
[2023-07-03] MEDS: CLOPIDOGREL 75 MG TAB PO SCH (09:32)
[2023-07-03] MEDS: ASPIRIN 81MG ENTERIC TABLET PO SCH (09:32)
[2023-07-03] MEDS: CETIRIZINE (ZyrTEC) 10 MG TAB PO SCH (09:32)
[2023-07-03] MEDS: METOPROLOL SUCC (TopROL XL) 100MG *XL* TAB PO SCH (09:34)
[2023-07-03 09:35] LABS: BASO % 0.4 % (0.0-1.0); EOS # 0.3 10^3/uL (0.0-0.5); EOS % 3.9 % (0.0-3.0); HEMATOCRIT 28.4 % (42.0-52.0); HEMOGLOBIN 8.6 g/dl (13.5-17.5); LYMPH # 1.7 10^3/uL (1.5-5.0); LYMPH % 25.4 % (24.0-44.0); MEAN CORPUSCULAR HEMOGLOBIN 29.7 pg (27.0-33.0); MEAN CORPUSCULAR HGB CONC 30.3 g/dl (32.0-36.5); MEAN CORPUSCULAR VOLUME 97.9 fl (80.0-96.0); MONO # 0.6 10^3/uL (0.0-0.8); MONO % 8.5 % (2.0-8.0); PLATELET COUNT, AUTOMATED 164 10^3/uL (150-450); WHITE BLOOD COUNT 6.7 10^3/uL (4.0-10.0)
[2023-07-03] MEDS: amLODIPine 5 MG TAB PO SCH (09:35)
[2023-07-03 10:07] LABS: BLOOD UREA NITROGEN 11 MG/DL (9-23); CALCIUM LEVEL 7.4 MG/DL (8.3-10.6); CARBON DIOXIDE LEVEL 30 MMOL/L (20-31); CHLORIDE LEVEL 111 MMOL/L (98-107); CREATININE FOR GFR 0.65 MG/DL (0.70-1.30); GLOMERULAR FILTRATION RATE > 60.0 (>35); GLUCOSE, FASTING 107 MG/DL (74-106); MAGNESIUM LEVEL 1.7 MG/DL (1.8-2.4); POTASSIUM SERUM 3.2 MMOL/L (3.5-5.1); SODIUM LEVEL 147 MMOL/L (136-145)
[2023-07-03] MEDS: POTASSIUM CHLORIDE 10% LIQ 20MEQ/15ML UDC PO ONE ×2 (13:00→13:07)
[2023-07-03] MEDS: MAG SULF 1GM/100ML (MAG RUN) 1 GM in IV 1 EA IV SCH ×2 (13:06→14:21)
[2023-07-03 14:00] VITALS: BP 123/52; TEMP 98.1; O2SAT 98
[2023-07-03] MEDS: carBAMazepine XR 200 MG TAB PO SCH (20:13)
[2023-07-03] MEDS: GABAPENTIN 300 MG CAP PO SCH (20:13)
[2023-07-03 20:50] VITALS: BP 133/50; TEMP 97.7; O2SAT 94
[2023-07-04] MEDS: IPRATROPIUM 0.5MG/ALBUTEROL 2.5MG INH SOL UD 3ML (DUONEB) INH SCH (02:00)
[2023-07-04] MEDS: LEVALBUTEROL 1.25MG 0.5ML CONCENTRATE NEB INH SCH ×4 (02:48→18:57)
[2023-07-04] MEDS: PIPERACILLIN/TAZOBACTAM SOD 4.5 GM in D5W MINI-BAG PLUS 50 ML IV SCH ×4 (03:38→22:34)
[2023-07-04 04:30] VITALS: BP 131/48; TEMP 97.9; O2SAT 92
[2023-07-04] MEDS: DOXYCYCLINE HYCLATE 100MG TABLET PO SCH ×2 (05:08→17:37)
[2023-07-04 05:57] LABS: BASO % 0.6 % (0.0-1.0); EOS # 0.2 10^3/uL (0.0-0.5); EOS % 3.6 % (0.0-3.0); HEMATOCRIT 28.9 % (42.0-52.0); HEMOGLOBIN 8.7 g/dl (13.5-17.5); LYMPH # 1.7 10^3/uL (1.5-5.0); LYMPH % 25.5 % (24.0-44.0); MEAN CORPUSCULAR HEMOGLOBIN 28.9 pg (27.0-33.0); MEAN CORPUSCULAR HGB CONC 30.1 g/dl (32.0-36.5); MONO # 0.5 10^3/uL (0.0-0.8); MONO % 8.1 % (2.0-8.0); NEUTROPHILS # 4.1 10^3/uL (1.5-8.5); NEUTROPHILS % 60.4 % (36.0-66.0); PLATELET COUNT, AUTOMATED 168 10^3/uL (150-450); RED BLOOD COUNT 3.01 10^6/uL (4.30-6.10); WHITE BLOOD COUNT 6.7 10^3/uL (4.0-10.0)
[2023-07-04 06:32] LABS: BLOOD UREA NITROGEN 10 MG/DL (9-23); CALCIUM LEVEL 7.6 MG/DL (8.3-10.6); CARBON DIOXIDE LEVEL 28 MMOL/L (20-31); CHLORIDE LEVEL 109 MMOL/L (98-107); CREATININE FOR GFR 0.64 MG/DL (0.70-1.30); GLOMERULAR FILTRATION RATE > 60.0 (>35); GLUCOSE, FASTING 87 MG/DL (74-106); POTASSIUM SERUM 2.9 MMOL/L (3.5-5.1); SODIUM LEVEL 145 MMOL/L (136-145)
[2023-07-04] MEDS ORDERED: POTASSIUM CHLORIDE 10% LIQ 20MEQ/15ML UDC PO ONE (06:35)
[2023-07-04] MEDS ORDERED: POTASSIUM CHLORIDE 10MEQ SR TABLET PO ONE (08:00)
[2023-07-04] MEDS: TAMSULOSIN 0.4 MG CAP PO SCH (09:09)
[2023-07-04] MEDS: CLOPIDOGREL 75 MG TAB PO SCH (09:09)
[2023-07-04] MEDS: HEPARIN SOD (PORCINE) 5000UNITS/ML 1ML VIAL/SYRINGE SC SCH ×2 (09:10→20:31)
[2023-07-04] MEDS: ATORVASTATIN 10 MG TAB PO SCH (09:10)
[2023-07-04] MEDS: CETIRIZINE (ZyrTEC) 10 MG TAB PO SCH (09:11)
[2023-07-04 09:13] VITALS: BP 132/67
[2023-07-04] MEDS: METOPROLOL SUCC (TopROL XL) 100MG *XL* TAB PO SCH (09:13)
[2023-07-04] MEDS: amLODIPine 5 MG TAB PO SCH (09:13)
[2023-07-04] MEDS: ASPIRIN 81MG ENTERIC TABLET PO SCH (09:14)
[2023-07-04] MEDS: POTASSIUM CHLORIDE 10MEQ SR TABLET PO ONE ×2 (12:00→12:18)
[2023-07-04 14:00] VITALS: BP 136/64; TEMP 98.6; O2SAT 98
[2023-07-04] MEDS: GABAPENTIN 300 MG CAP PO SCH (20:31)
[2023-07-04] MEDS: carBAMazepine XR 200 MG TAB PO SCH (20:31)
[2023-07-04 20:33] VITALS: BP 137/53; TEMP 97.9; O2SAT 96
[2023-07-05] MEDS: LEVALBUTEROL 1.25MG 0.5ML CONCENTRATE NEB INH SCH ×4 (02:05→20:20)
[2023-07-05] MEDS: PIPERACILLIN/TAZOBACTAM SOD 4.5 GM in D5W MINI-BAG PLUS 50 ML IV SCH (03:03)
[2023-07-05 05:29] VITALS: BP 141/46; TEMP 97.3; O2SAT 96
[2023-07-05] MEDS: DOXYCYCLINE HYCLATE 100MG TABLET PO SCH (05:47)
[2023-07-05] MEDS: CLOPIDOGREL 75 MG TAB PO SCH (09:00)
[2023-07-05] MEDS: CETIRIZINE (ZyrTEC) 10 MG TAB PO SCH (09:00)
[2023-07-05] MEDS: TAMSULOSIN 0.4 MG CAP PO SCH (09:00)
[2023-07-05 10:51] LABS: HEMATOCRIT 30.1 % (42.0-52.0); HEMOGLOBIN 9.1 g/dl (13.5-17.5); MEAN CORPUSCULAR HEMOGLOBIN 29.3 pg (27.0-33.0); MEAN CORPUSCULAR HGB CONC 30.2 g/dl (32.0-36.5); MEAN CORPUSCULAR VOLUME 96.8 fl (80.0-96.0); PLATELET COUNT, AUTOMATED 189 10^3/uL (150-450); RED BLOOD COUNT 3.11 10^6/uL (4.30-6.10)
[2023-07-05] MEDS ORDERED: LORazepam 1 MG TAB PO PRN (11:10)
[2023-07-05] MEDS ORDERED: BISACODYL 10MG SUPP PR PRN (11:10)
[2023-07-05] MEDS ORDERED: ONDANSETRON 4MG 2ML VIAL IV PRN (11:10)
[2023-07-05] MEDS ORDERED: ATROPINE SULFATE 1% OPHTH SOLN 2ML BTL SL PRN (11:10)
[2023-07-05] MEDS ORDERED: SCOPOLAMINE 1MG TRANSDERMAL PATCH TOP PRN (11:10)
[2023-07-05] MEDS ORDERED: FLEET ENEMA PR PRN (11:10)
[2023-07-05] MEDS ORDERED: HYOSCYAMINE SULFATE 0.125 MG SUBL TABLET PO PRN (11:10)
[2023-07-05] MEDS ORDERED: MORPHINE 10MG/0.5ML ORAL CONCENTRATE SOLUTION U/D SL PRN (11:10)
[2023-07-05] MEDS ORDERED: MORPHINE 2 MG/ML 1ML VIAL IV PRN (11:10)
[2023-07-05] MEDS ORDERED: LORazepam 2 MG/ML 1ML VIAL IV PRN (11:10)
[2023-07-05] MEDS ORDERED: ONDANSETRON 4MG ORAL DISINTEGRATING TAB PO PRN (11:10)
[2023-07-05 11:15] LABS: BLOOD UREA NITROGEN 9 MG/DL (9-23); CALCIUM LEVEL 7.7 MG/DL (8.3-10.6); CARBON DIOXIDE LEVEL 31 MMOL/L (20-31); CHLORIDE LEVEL 113 MMOL/L (98-107); CREATININE FOR GFR 0.75 MG/DL (0.70-1.30); GLOMERULAR FILTRATION RATE > 60.0 (>35); GLUCOSE, FASTING 84 MG/DL (74-106); MAGNESIUM LEVEL 1.7 MG/DL (1.8-2.4); POTASSIUM SERUM 3.1 MMOL/L (3.5-5.1); SODIUM LEVEL 149 MMOL/L (136-145)
[2023-07-05 18:08] LABS: BODY FLUID CULTURE Not indicated. (.); LEGIONELLA ANTIGEN URINE Negative (Negative); ORGANISM ID Not indicated. (.); SPECIMEN SOURCE Urine (.); URINE STREP PNEUMONIAE ANTIGEN Negative (Negative)
[2023-07-05] MEDS: GABAPENTIN 300 MG CAP PO SCH (20:45)
[2023-07-05] MEDS: carBAMazepine XR 200 MG TAB PO SCH (20:45)
[2023-07-06] MEDS: LEVALBUTEROL 1.25MG 0.5ML CONCENTRATE NEB INH SCH ×4 (02:00→19:27)
[2023-07-06] MEDS: TAMSULOSIN 0.4 MG CAP PO SCH (09:00)
[2023-07-06] MEDS: CETIRIZINE (ZyrTEC) 10 MG TAB PO SCH (09:00)
[2023-07-06] MEDS: CLOPIDOGREL 75 MG TAB PO SCH (09:00)
[2023-07-06] MEDS ORDERED: ALBU2.5V10 NEB (14:55)
[2023-07-06] MEDS ORDERED: ATIV1TAB10 PO (14:59)
[2023-07-06] MEDS ORDERED: MORP1SOL5 PO (14:59)
[2023-07-06] MEDS ORDERED: HYOS125TA PO (14:59)
[2023-07-06] MEDS: GABAPENTIN 300 MG CAP PO SCH (20:59)
[2023-07-06] MEDS: carBAMazepine XR 200 MG TAB PO SCH (20:59)
[2023-07-07] MEDS: LEVALBUTEROL 1.25MG 0.5ML CONCENTRATE NEB INH SCH ×2 (01:12→07:12)
[2023-07-07] MEDS: TAMSULOSIN 0.4 MG CAP PO SCH (09:00)
[2023-07-07] MEDS: CETIRIZINE (ZyrTEC) 10 MG TAB PO SCH (09:00)
[2023-07-07] MEDS: CLOPIDOGREL 75 MG TAB PO SCH (09:00)
== END 2023-07-07 11:18 | disposition hospice, home (50) ==
LOC: M ED 12:42 → EDBD 12:42 → M ED INP 12:43 → ENRESERV 17:05 → M MSPAV 20:29
PROVIDERS: ADMIT Internal Medicine; ATTEND Internal Medicine
DX: J96.01 Acute respiratory failure with hypoxia (principal); L89.159 Pressure ulcer of sacral region, unspecified stage; M86.172 Other acute osteomyelitis, left ankle and foot; G30.9 Alzheimer's disease, unspecified; J15.69 Pneumonia due to other Gram-negative bacteria; Z79.899 Other long term (current) drug therapy; E78.2 Mixed hyperlipidemia; R33.9 Retention of urine, unspecified; R62.7 Adult failure to thrive
CPT/HCPCS: 36415; 71045; 71260; 80048; 80053; 80076; 81001; 82550; 82553; 82803; 83605; 83735; 83880; 84145; 84436; 84443; 84484; 85025; 85027; 86140; 87040; 87086; 87449; 87631; 87899; 92610; 93005; 93041; 94640; 94760; 96361; 96365; 96366; 96367; 96372; 96375; 97165; 97530; 99285; G0378; J0696; J2543; J3475; Q9967